=== PATIENT | male | born 1955 | race Caucasian/White ===

== ENCOUNTER 2023-11-22 06:39 | Emergency (ER) | payer MEDICARE, OTHER, SELFPAY ==
[2023-11-22 06:45] VITALS: BP 135/68
[2023-11-22] MEDS: ZOFRAN 4 MG IV (07:13)
[2023-11-22] MEDS: TORADOL 15 MG IV (07:13)
[2023-11-22] MEDS: NSS 500 IV (07:13)
[2023-11-22 07:26] LABS: Urine Albumin Trace (Neg - Trace); Urine Bilirubin 1+ (Negative); Urine Character Clear (Clear); Urine Color Yellow; Urine Glucose 2+ (Negative); Urine Ketone Trace (Negative); Urine Leukocyte Trace (Negative); Urine Nitrite Negative (Negative); Urine Occult Blood 2+ (Negative); Urine Urobilinogen Negative (Neg - 1+)
--- NOTE | 2023-11-22 07:26 | ED.GENMED ---
History of Present Illness
General
Chief Complaint: Flank Pain
Source: patient
Exam Limitations: none
Time Seen by Provider: 11/22/23 06:57
Travel History
Have you had any contact with someone who has COVID-19?: No
Do you have any symptoms of coronavirus? Fever > 100 degrees, chills, cough, shortness of breath, sore throat, loss of taste or smell, muscle aches, or headache?: No
History of Present Illness
History of Present Illness:
24 hours of right flank pain. History of kidney stones. Took Tylenol last evening. Some nausea. No fever. Symptoms are moderate in nature.
Past History
Past History
ED Past Medical History: HTN, Hypercholesterolemia, Other (DJD of the knees), Other (Kidney stone) and Other (Polycycthemia)
ED Past Surgical History: Orthopedic (Bilateral knees), Urological (Lithotripsy) and Other (Umbilical hernia)
Social History
Tobacco: Non-smoker
Alcohol: Occasional
Drug: None
Personal:
Living: with family
Employment: Employed
Family History
Family History: Other (Noncontributory)
Phy Exam
Physical Exam
Physical Exam:
GENERAL: Alert and oriented in no apparent distress
EYE: Orbits normal.
NECK: Supple
CARDIAC: Regular rate and rhythm without any obvious murmurs.
LUNGS: Clear breath sounds,normal
ABDOMEN: Soft, without focal tenderness or distention. No CVA tenderness
NEUROLOGICAL: Alert and oriented , grossly non-focal
SKIN: Warm and dry, no rash or lesion, no discoloration, skin intact.
MUSCULOSKELETAL: No edema,no deformity.Good color
PSYCH: Normal and appropriate interaction.
Course
Orders/Labs/Results
Orders:
Orders
11/22/23 07:04
IV Insert/Care/Rem.- Treatment PRN
0.9% Sodium Chloride 500 ml [Nss] 500 ml IV BOLUS
Ketorolac [Toradol] 15 mg IV NOW STA
Ondansetron Injectable [Zofran] 4 mg IV NOW STA
Pulse Ox/cont/shift [RESP] Stat
Quantity: 1
11/22/23 07:05
CT Abd/pel Without Iv Or Oral Urgent
Comment:
Reason For Exam: Right flank pain
11/22/23 07:10
Basic Metabolic Panel Urgent
Complete Blood Count/With Diff Urgent
Urinalysis Reflex To Culture Urgent
Date Specimen was Collected: 11/22/23
Time Specimen was Collected: 06:52
Urine Microscopic Reflex Cult Urgent
11/22/23 07:18
Ondansetron Injectable [Zofran] 4 mg .ROUTE .STK-MED ONE
11/22/23 07:19
Ketorolac [Toradol] 15 mg .ROUTE .STK-MED ONE
11/22/23 08:00
HYDROmorphone [Dilaudid] 0.5 mg IV NOW STA
11/22/23 09:32
Cefdinir [Omnicef] 300 mg PO NOW STA
Abnormal Lab Results
11/22/23
07:10
WBC 14.0 H 10^3/uL
(4.8-10.8)
Hgb 11.9 L g/dL
(13.0-18.0)
Hct 37.9 L %
(39.0-52.0)
MCV 65.3 L fL
(80.0-94.0)
MCH 20.5 L pg
(27.0-31.0)
MCHC 31.4 L g/dL
(33.0-37.0)
RDW 20.1 H %
(11.5-14.5)
Abs Immat Gran (auto) 0.1 H 10^3/uL
(0-0.05)
Absolute Neuts (auto) 12.0 H 10^3/uL
(1.4-6.5)
Absolute Lymphs (auto) 0.7 L 10^3/uL
(1.2-3.4)
Absolute Monos (auto) 1.1 H 10^3/uL
(0.1-0.6)
Immature Gran % 0.7 H %
(0-0.5)
Neutrophils % 86.1 H %
(42.2-75.2)
Lymphocytes % 4.8 L %
(20.5-51.1)
Sodium 134 L mmol/L
(135-145)
BUN 33 H mg/dl
(9-20)
Glucose 207 H mg/dl
(70-99)
Urine Ketones Trace A
(Negative)
Ur Occult Blood Reflex 2+ A
(Negative)
Urine Bilirubin 1+ A
(Negative)
Leukocyte Esterase Rfl Trace A
(Negative)
Urine RBC 11-15 A /HPF
(0-2)
Urine Bacteria (Reflex) Few A
(Negative)
Urine Glucose 2+ A
(Negative)
11/22/23 07:10
11/22/23 07:10
Vital Signs
Initial and Last Documented VS:
Initial Vital Signs
Temp Pulse Resp BP Pulse Ox
97.9 F 63 24 135/68 98
11/22/23 06:45 11/22/23 06:45 11/22/23 06:45 11/22/23 06:45 11/22/23 06:45
Last Documented Vital Signs
Temp Pulse Resp BP Pulse Ox
97.9 F 63 24 135/68 98
11/22/23 06:45 11/22/23 06:45 11/22/23 06:45 11/22/23 06:45 11/22/23 06:45
MDM/Problems Addressed
Differential Diagnosis Includes:
History and exam consistent with a kidney stone workup in progress including labs CT. Pain management.
*Radiology
Radiology exam reviewed: radiology read reviewed (6 mm and 7 mm stone with mild hydronephrosis distal right UVJ)
*Pulse Oximetry
Patient hypoxic: no
*Critical Care Note
Total Time (30-74mins, 75-104mins- exclusive of procedures): Not Applicable
Data Reviewed
Review of Other/Old Records Reveals: Labs and Records
Update Note
Update Note:
Patient with a leukocytosis. Likely reactive. No infectious symptoms. No fever or chills. Urinalysis likely negative. Discussed with urology and reports labs sent to urology. Offered admission for stroke retrieval this evening but also felt
reasonable for outpatient management. Patient would prefer outpatient management because of a disabled son.
ED Attending Note
-
Portions of this chart may have been created with voice recognition software.� Occasional wrong word or��sound alike� substitutions may have occurred due to the inherent limitations of voice recognition software.
Discharge Plan
Departure
Patient Disposition: Home (Routine Discharge)
Date of Disposition: 11/22/23
Time of Disposition: 09:58
Patient with high blood pressure during this ER visit?: Yes
Discharge Problem:
Obstructing kidney stone
Instructions: Kidney Stones (DC), BLOOD PRESSURE
Prescriptions:
New
hydrocodone-acetaminophen 5-325 mg tablet
1 tab PO Q6H PRN (Reason: Pain) Qty: 14 0RF
tamsulosin [Flomax] 0.4 mg capsule
0.4 mg PO DAILY Qty: 14 0RF
cefdinir 300 mg capsule
300 mg PO BID 7 Days Qty: 14 0RF
No Action
atorvastatin 40 MG tablet
40 mg PO QPM
amlodipine 5 MG tablet
5 mg PO DAILY
ramipril 10 MG capsule
10 mg PO DAILY
aspirin 81 MG tablet,delayed release (DR/EC)
81 mg PO DAILY
metformin 500 MG tablet
1,000 mg PO BID
hydrocodone-acetaminophen 1 EACH tablet
1 ea PO QIDPRN PRN (Reason: pain) Qty: 5 0RF
ketorolac 10 MG tablet
10 mg PO QIDPRN PRN (Reason: flank pain) Qty: 12 0RF
tamsulosin 0.4 MG capsule
0.4 mg PO DAILY Qty: 7 0RF
ondansetron 4 MG tablet,disintegrating
4 mg PO QIDPRN PRN (Reason: nausea/vomiting) Qty: 20 0RF
polyethylene glycol 3350 17 GRAMS powder in packet
17 grams PO DAILY Qty: 30 0RF
docusate sodium 100 MG capsule
100 mg PO BID Qty: 14 0RF
cefuroxime axetil 500 MG tablet
500 mg PO BID Qty: 8 0RF
tamsulosin [Flomax] 0.4 mg capsule
0.4 mg PO DAILY Qty: 10 0RF
ibuprofen 600 mg tablet
600 mg PO Q6H Qty: 30 0RF
oxycodone 5 mg tablet
5 mg PO Q8H PRN (Reason: pain) Qty: 8 0RF
Referrals:
Haseeb Vincent MD [Family Provider] -
Kelvin Louie MD [Active] - Follow up in 5-7 days
Activity Restrictions/Additional Instructions:
Call the urologist for close follow-up
Advil or Motrin for pain
The stronger pain medication was sent to your pharmacy along with the other medication
Interventions
Interventions:
*Risk Screen - Suicide Last Done: 11/22/23 06:45
*General Assessment Last Done: 11/22/23 07:04
*Neglect/Abuse Screening Last Done: 11/22/23 06:45
ED- Fall Risk Assessment Last Done: 11/22/23 07:04
*ED COVID-19 Vaccine History Last Done: 11/22/23 06:45
MO-Czlgte-Beswsisqyf Assessment Last Done: 11/22/23 07:04
ED-Male Genitourinary Assessment Last Done: 11/22/23 07:04
[2023-11-22 07:38] LABS: % Basophils 0.4 % (0-2); % Eosinophils 0.4 % (0-6); % Immature Granulocytes 0.7 % (0-0.5); % Lymphocytes 4.8 % (20.5-51.1); % Monocytes 7.6 % (1.7-9.3); % Neutrophils 86.1 % (42.2-75.2); Absolute Basophils 0.1 10^3/uL (0-0.2); Absolute Eosinophils 0.1 10^3/uL (0-0.7); Absolute Immature Granulocytes 0.1 10^3/uL (0-0.05); Absolute Lymphocytes 0.7 10^3/uL (1.2-3.4); Absolute Monocytes 1.1 10^3/uL (0.1-0.6); Hematocrit 37.9 % (39.0-52.0); Hemoglobin 11.9 g/dL (13.0-18.0); Mean Corp Hgb Conc. 31.4 g/dL (33.0-37.0); Mean Corpuscular Hgb 20.5 pg (27.0-31.0); Mean Corpuscular Volume 65.3 fL (80.0-94.0); Mean Platelet Volume 10.2 fL (7.4-10.4); Nucleated Red Blood Cells % 0 % (-); Platelet Count 354 10^3/uL (130-400); Red Cell Dist. Width 20.1 % (11.5-14.5)
[2023-11-22 07:39] LABS: Blood Urea Nitrogen 33 mg/dl (9-20); Calcium 9.4 mg/dl (8.4-10.2); Carbon Dioxide 22 mmol/L (22-30); Chloride 102 mmol/L (98-107); Glucose 207 mg/dl (70-99); Potassium 4.3 mmol/L (3.5-5.1); Sodium 134 mmol/L (135-145); eGFR > 60.00
[2023-11-22 07:54] LABS: Urine Amorphous Seen; Urine Mucus Many
[2023-11-22 07:57] LABS: Urine Bacteria Few (Negative)
[2023-11-22] MEDS: DILAUDID 0.5 MG IV (08:05)
[2023-11-22] MEDS: OMNICEF 300 MG PO (09:51)
[2023-11-22 10:46] VITALS: BP 137/77
== END 2023-11-22 10:50 | disposition home or self-care (01) ==
LOC: EMR 06:39
PROVIDERS: EMERGENCY PHYSICIAN Emergency Medicine; FAMILY PHYSICIAN Internal Medicine
DX: N13.2 Hydronephrosis with renal and ureteral calculous obstruction (principal); I10 Essential (primary) hypertension; Z87.442 Personal history of urinary calculi
CPT/HCPCS: 99284; 96374; 96375 ×2; 96361 ×2; 74176; 80048; 81003; 81015; 85025

== ENCOUNTER → 2023-12-19 09:55 | Outpatient (REF) | payer MEDICARE, OTHER, SELFPAY | LOC: RAD 09:55 | PROVIDERS: ATTENDING PHYSICIAN Specialist; FAMILY PHYSICIAN Internal Medicine | DX: N50.0 Atrophy of testis (principal); N20.0 Calculus of kidney | CPT/HCPCS: 74018 ==

== ENCOUNTER → 2023-12-27 11:59 | Outpatient (REF) | payer MEDICARE, OTHER, SELFPAY ==
[2023-12-27 12:31] LABS: % Basophils 0.4 % (0-2); % Eosinophils 2.1 % (0-6); % Immature Granulocytes 0.1 % (0-0.5); % Lymphocytes 20.3 % (20.5-51.1); % Monocytes 14.6 % (1.7-9.3); % Neutrophils 62.5 % (42.2-75.2); Absolute Eosinophils 0.2 10^3/uL (0-0.7); Absolute Lymphocytes 1.6 10^3/uL (1.2-3.4); Absolute Monocytes 1.2 10^3/uL (0.1-0.6); Hematocrit 40.8 % (39.0-52.0); Hemoglobin 12.5 g/dL (13.0-18.0); Mean Corp Hgb Conc. 30.6 g/dL (33.0-37.0); Mean Corpuscular Hgb 19.9 pg (27.0-31.0); Mean Corpuscular Volume 65.1 fL (80.0-94.0); Mean Platelet Volume 9.4 fL (7.4-10.4); Platelet Count 362 10^3/uL (130-400); Red Blood Cell Count 6.27 10^6/uL (4.70-6.10); Red Cell Dist. Width 20.3 % (11.5-14.5)
== END ==
LOC: OIDL 11:59
PROVIDERS: ATTENDING PHYSICIAN Internal Medicine Hematology & Oncology; FAMILY PHYSICIAN Internal Medicine
DX: D45 Polycythemia vera (principal)
CPT/HCPCS: 36415; 85025

== ENCOUNTER 2024-01-10 06:26 | Day surgery (SDC) | payer MEDICARE, OTHER, SELFPAY ==
[2024-01-03 06:52] VITALS: BMI 32.4
[2024-01-10] VITALS (10 sets, daily range): BP systolic 123–144; BP diastolic 70–81; BMI 32.4
[2024-01-10 10:09] LABS: Glucose - Point of Care 125 mg/dl (70-99)
[2024-01-10 12:32] LABS: Glucose - Point of Care 95 mg/dl (70-99)
[2024-01-10 13:43] LABS: Glucose - Point of Care 107 mg/dl (70-99)
[2024-01-10] MEDS: Pyridium 200 MG PO (14:20)
[2024-01-14 16:43] LABS: Stone Analysis Mass 111 mg
== END 2024-01-10 15:13 | disposition home or self-care (01) ==
LOC: SDS 06:26
PROVIDERS: ATTENDING PHYSICIAN Specialist
DX: N20.2 Calculus of kidney with calculus of ureter (principal); Q63.0 Accessory kidney
CPT/HCPCS: 52356; 74420; 76000; 82365; 82962; A4300; C2617

== ENCOUNTER 2024-01-18 10:23 | Inpatient (IN) | payer MEDICARE, OTHER, SELFPAY ==
[2024-01-18] VITALS (9 sets, daily range): BP systolic 106–146; BP diastolic 63–82; BMI 29.0
--- NOTE | 2024-01-18 06:42 | ED.GENMED ---
History of Present Illness
General
Chief Complaint: Musculo-Skeletal Complaint
Time Seen by Provider: 01/18/24 06:13
Travel History
Have you had any contact with someone who has COVID-19?: No
Do you have any symptoms of coronavirus? Fever > 100 degrees, chills, cough, shortness of breath, sore throat, loss of taste or smell, muscle aches, or headache?: No
History of Present Illness
History of Present Illness:
HPI: Patient came in by ambulance after a fall. Recently he has been having vomiting and diarrhea. Approximately a month ago Dr. Ybarra placed a right ureteral stent. After the fall that occurred about 20 hours ago, he has been having great
difficulty walking and could barely move sit to the point that he had to come in by ambulance. He also reports a headache but adamantly denies any head trauma.
EXAM:
GENERAL: Well appearing in no distress
CERVICAL SPINE: No midline c-spine tenderness with excellent AROM
HEAD: No evidence of craniofacial trauma
CHEST: No chest wall tenderness, normal heart sounds but mildly tachycardic
LUNGS: Equal lung sounds, no respiratory distress
ABDOMEN: No abdominal tenderness, no peritoneal signs
EXTREMITIES: Markedly decreased active range of motion at the right hip, positive straight leg raise on the right
NEURO: Excellent strength all extremities, appropriate mental status, normal speech/language
TIME OF INITIAL ENCOUNTER: 6:40 AM
NUMBER AND COMPLEXITY OF PROBLEMS ADDRESSED AT THE ENCOUNTER
� Chronic conditions affecting care: Diabetes, spinal stenosis, sciatica, high blood pressure, hyperlipidemia
� Acute Exacerbation and/or Progression of Chronic Illness: This is an acute problem
� Differential Diagnosis includes: Exacerbation of sciatica, hip fracture, pelvis fracture, dehydration, GEETA
AMOUNT AND/OR COMPLEXITY OF DATA TO BE REVIEWED AND ANALYZED
� I performed an independent evaluation of and my interpretation is:
EKG:
CT: CT imaging personally reviewed and suggest more of a chronic fracture however the patient denies any history of fracture
X-rays: I personally viewed x-rays of the right hip and see no evidence of fracture�radiologist agrees
Laboratory Studies: White count is 22.3, 12.8, chemistries relatively unremarkable however BUN to creatinine ratio was elevated; UTI suggests infection however recent stent was placed
Other:
� Review of other/old records: I reviewed records, the patient had a stent placed by Dr. Ybarra 01/10/2024
� Clinical information was obtained by an independent historian: EMS notes
� Prescriptions/Medications Considered but not given:
� Further testing considered but not performed:
RISK OF COMPLICATIONS AND/OR MORBIDITY OR MORTALITY OF PATIENT MANAGEMENT
� Social determinants of health affecting care: Lives at home
� Discussion with other providers: Physical therapy for evaluation; the patient has a general ill appearance and I notified Dr. Ybarra; hospitalist for admission as I do have some concern for UTI/sepsis along with intractable
pain from a possible lumbar spine fracture
� Escalation of care including admission/observation vs risk of discharge considered: The patient has been having nausea and vomiting and diarrhea and is borderline cardiac here. He appears uncomfortable. Will start IV and give
narcotic analgesia as well as fluids and Zofran. I have ordered Tylenol for his headache but he denies any head trauma. Plain film imaging suggested acute fracture at L1 however CT imaging suggest more of a chronic appearing fracture. However,
the patient states that he has not had an acute fracture in the past. Given the leukocytosis with ureteral stent, urinalysis has been ordered.
Past History
Past History
ED Past Medical History: HTN, Hypercholesterolemia, Other (DJD of the knees), Other (Kidney stone) and Other (Polycycthemia)
ED Past Surgical History: Orthopedic (Bilateral knees), Urological (Lithotripsy) and Other (Umbilical hernia)
Social History
Tobacco: Non-smoker
Alcohol: Occasional
Drug: None
Personal:
Living: with family
Employment: Employed
Family History
Family History: Other (Noncontributory)
Phy Exam
Physical Exam
Physical Exam:
See HPI
Course
Orders/Labs/Results
Orders:
Orders
01/18/24 06:04
CR Hip - RT w/wo Pel 2-3 Vw* Urgent
Comment:
Reason For Exam: fall
Include a pelvis x-ray?: Yes
Lumbar Spine, 2 or 3 View [CR Lumbar Spine 2 Or 3 Views] Urgent
Comment:
Reason For Exam: fall
01/18/24 06:40
0.9% Sodium Chloride 1000 ml [Nss] 1,000 ml IV BOLUS
HYDROmorphone [Dilaudid] 0.5 mg IV NOW STA
Ondansetron Injectable [Zofran] 4 mg IV NOW STA
01/18/24 06:41
Acetaminophen [Tylenol] 1,000 mg PO NOW STA
01/18/24 07:18
Complete Blood Count/With Diff Urgent
01/18/24 07:19
Comprehensive Metabolic Panel Urgent
Lipase Urgent
01/18/24 07:29
CT Lumbar Spine W/o Iv Contras Urgent
Comment:
Reason For Exam: eval L1 fx
01/18/24 08:29
PT Consult [Pt Eval And Treat] Urgent
Activity Level: Ambulate
01/18/24 09:01
Urinalysis Reflex To Culture Urgent
Date Specimen was Collected: 01/18/24
Time Specimen was Collected: 09:00
Urine Microscopic Reflex Cult Urgent
Urine Culture Urgent
LAVERNE Source: U
Specimen Description:
Obtained by: Random
Date Specimen was Collected: 01/18/24
Time Specimen was Collected: 09:00
01/18/24 09:53
CefTRIAXone [Rocephin] 1,000 mg IV NOW STA
01/18/24 09:59
Admit/Transfer Patient As Directed
Co-Sign Provider:
Level of Care: Inpatient admission
Assign to:: Medical/Surgical
Physician / Group: Hospitalist
Diagnosis: UTI
Reason for Hospitalization: .
Expected length of stay greater than two midnights?: Yes
ELOS- Estimated Length of Stay in days: 3
I certify the patient meets the requirements for IP care: Yes
01/18/24 10:00
Code Status As Directed
Resuscitation Status: Full Code
01/18/24 10:25
Lactic Acid Q4H
Comment: CANCEL 2nd LACTIC ACID IF 1st LACTIC ACID IS LESS THAN 2
Blood Culture Q30M
LAVERNE Source: Blood/Venous
Specimen Description:
Blood Culture Q30M
LAVERNE Source: Blood/Venous
Specimen Description:
01/18/24 11:53
Consult Urology [UROLOGY CONSULT] Routine
Consulting Provider: Suhas Griffin Jr.
Was physician already notified: Yes
Comment: UTI
DX Deep Vein Thrombosis Video Routine
01/18/24 14:00
Lactic Acid Q4H
Comment: CANCEL 2nd LACTIC ACID IF 1st LACTIC ACID IS LESS THAN 2
01/18/24 18:00
Aspirin Low Dose EC [Aspir Low (Enteric Coated)] 81 mg PO QPM
01/18/24 20:00
Heparin 5,000 units SC Q12
Abnormal Lab Results
01/18/24 01/18/24 01/18/24
07:18 07:19 09:01
WBC 22.3 H 10^3/uL
(4.8-10.8)
RBC 6.38 H 10^6/uL
(4.70-6.10)
Hgb 12.8 L g/dL
(13.0-18.0)
MCV 63.3 L fL
(80.0-94.0)
MCH 20.1 L pg
(27.0-31.0)
MCHC 31.7 L g/dL
(33.0-37.0)
RDW 21.4 H %
(11.5-14.5)
Abs Immat Gran (auto) 0.2 H 10^3/uL
(0-0.05)
Absolute Neuts (auto) 19.5 H 10^3/uL
(1.4-6.5)
Absolute Lymphs (auto) 0.6 L 10^3/uL
(1.2-3.4)
Absolute Monos (auto) 2.0 H 10^3/uL
(0.1-0.6)
Immature Gran % 0.8 H %
(0-0.5)
Neutrophils % 87.4 H %
(42.2-75.2)
Lymphocytes % 2.5 L %
(20.5-51.1)
BUN 32 H mg/dl
(9-20)
Glucose 184 H mg/dl
(70-99)
AST 147 H U/L
(17-59)
ALT 53 H U/L
(0-50)
Total Protein 6.2 L g/dl
(6.3-8.2)
Urine Ketones Trace A
(Negative)
Ur Occult Blood Reflex 4+ A
(Negative)
Urine Bilirubin 1+ A
(Negative)
Leukocyte Esterase Rfl 2+ A
(Negative)
Urine RBC 40-50 A /HPF
(0-2)
Urine WBC (Reflex) 40-50 A /HPF
(0-5)
Urine Bacteria (Reflex) Moderate A
(Negative)
Urine Albumin (Reflex) 1+ A
(Neg - Trace)
01/18/24 07:18
01/18/24 07:19
Vital Signs
Initial and Last Documented VS:
Initial Vital Signs
Temp Pulse Resp BP Pulse Ox
99.8 F 110 18 132/82 99
01/18/24 05:57 01/18/24 05:57 01/18/24 05:57 01/18/24 05:57 01/18/24 05:57
Last Documented Vital Signs
Temp Pulse Resp BP Pulse Ox
100.2 F 113 18 111/64 94
01/18/24 12:02 01/18/24 12:02 01/18/24 12:02 01/18/24 12:02 01/18/24 12:02
*Critical Care Note
Total Time (30-74mins, 75-104mins- exclusive of procedures): Not Applicable
ED Attending Note
-
Portions of this chart may have been created with voice recognition software.� Occasional wrong word or��sound alike� substitutions may have occurred due to the inherent limitations of voice recognition software.
Discharge Plan
Departure
Patient Disposition: Admit
Date of Disposition: 01/18/24
Time of Disposition: 10:00
Presentation/result/management discussed w/ accepting MD/DO: Hospitalist
Discharge Problem:
Intractable back pain
Interventions
Interventions:
*Risk Screen - Suicide Last Done: 01/18/24 05:57
*General Assessment Last Done: 01/18/24 05:57
*Neglect/Abuse Screening Last Done: 01/18/24 05:57
ED- Fall Risk Assessment Last Done: 01/18/24 07:30
*ED COVID-19 Vaccine History Last Done: 01/18/24 05:57
*Nursing Disposition Last Done: 01/18/24 11:25
ED-Musculoskeletal Assessment Last Done: 01/18/24 07:30
Discharge Date and Time
Discharge Date/Time: 01/18/24 11:26
[2024-01-18] MEDS: DILAUDID 0.5 MG IV (07:19)
[2024-01-18] MEDS: ZOFRAN 4 MG IV (07:19)
[2024-01-18] MEDS: NSS 1000 IV ×3 (07:20→21:24)
[2024-01-18] MEDS: TYLENOL 1000 MG PO ×3 (07:22→21:25)
[2024-01-18 07:30] LABS: % Basophils 0.3 % (0-2); % Immature Granulocytes 0.8 % (0-0.5); % Lymphocytes 2.5 % (20.5-51.1); % Neutrophils 87.4 % (42.2-75.2); Absolute Basophils 0.1 10^3/uL (0-0.2); Absolute Immature Granulocytes 0.2 10^3/uL (0-0.05); Absolute Lymphocytes 0.6 10^3/uL (1.2-3.4); Absolute Neutrophils 19.5 10^3/uL (1.4-6.5); Hematocrit 40.4 % (39.0-52.0); Hemoglobin 12.8 g/dL (13.0-18.0); Mean Corp Hgb Conc. 31.7 g/dL (33.0-37.0); Mean Corpuscular Hgb 20.1 pg (27.0-31.0); Mean Corpuscular Volume 63.3 fL (80.0-94.0); Mean Platelet Volume 9.6 fL (7.4-10.4); Nucleated Red Blood Cells % 0 % (-); Platelet Count 290 10^3/uL (130-400); Red Blood Cell Count 6.38 10^6/uL (4.70-6.10); Red Cell Dist. Width 21.4 % (11.5-14.5); White Blood Cell Count 22.3 10^3/uL (4.8-10.8)
[2024-01-18 07:42] LABS: ALT (SGPT) 53 U/L (0-50); AST (SGOT) 147 U/L (17-59); Alkaline Phosphatase 80 U/L (38-126); Blood Urea Nitrogen 32 mg/dl (9-20); Calcium 9.2 mg/dl (8.4-10.2); Carbon Dioxide 26 mmol/L (22-30); Chloride 100 mmol/L (98-107); Estimated Creatinine Clearance 76 ml/min; Glucose 184 mg/dl (70-99); Lipase 34 U/L (23-300); Potassium 4.2 mmol/L (3.5-5.1); Sodium 136 mmol/L (135-145); Total Bilirubin 0.9 mg/dl (0.2-1.3); Total Protein 6.2 g/dl (6.3-8.2); eGFR > 60.00
[2024-01-18 09:20] LABS: Urine Albumin 1+ (Neg - Trace); Urine Bilirubin 1+ (Negative); Urine Character Slightly Cloudy (Clear); Urine Color Yellow; Urine Glucose Negative (Negative); Urine Ketone Trace (Negative); Urine Leukocyte 2+ (Negative); Urine Nitrite Negative (Negative); Urine Occult Blood 4+ (Negative); Urine Urobilinogen Negative (Neg - 1+)
[2024-01-18 09:29] LABS: Urine Mucus Many
[2024-01-18 09:31] LABS: Urine Amorphous Seen
[2024-01-18 09:33] LABS: Urine Red Blood Cell 40-50 /HPF (0-2)
[2024-01-18 09:34] LABS: Urine White Cell 40-50 /HPF (0-5)
[2024-01-18 09:35] LABS: Urine Bacteria Moderate (Negative)
--- NOTE | 2024-01-18 09:59 | HPS.HSE ---
Family Physician
-
Family Physician: Haseeb Vincent
Chief Complaint
-
Rigors and fever with muscle spasm for 1 day during
History of Present Illness
68 years old male came from home. Patient started to have back pain with muscle spasm in addition to fever and rigors at home. He describes his urine as Sunday. He went to his a primary care doctor and received a pneumonia vaccination since
vaccination, his condition deteriorated and started to have chills/rigors and severe muscle aches..
Patient had recent urological procedure. He had history of right ureteral stone status post right ureteroscopy, basket extraction and right double-J stent placement by Dr. Ybarra on 01/09. Patient received 5 days course of Bactrim. He noticed
difficulty urination but no hematuria.
In the emergency room, he had leukocytosis, was found to have mobility problems. He complained of lower back pain and scan of the lumbar spine showed chronic compression fraction of T12/L1. Creatinine 1.1. Lactic acid 1.9. Temperature 99.0.
Bladder scan showed volume around 459 cc.
Medical History
Past Medical History
Past Medical History: Reports Other (Hypertension, kidney stone, degenerative disc disease, type 2 diabetes, hyperlipidemia.)
Past Surgical History: Reports Other (No recent major surgery)
Social History
Tobacco: Non-smoker
Alcohol: None
Drug: None
Personal:
Living: With Family
Employment: Retired
Family History
Family History: Not pertinent
Allergies / Home Medications
Allergies reflects when Allergies were last updated in [employer].
Home Medications with original date entered in [employer]
Allergy/Medication List:
Allergies
Allergy/AdvReac Type Severity Reaction Status Date / Time
No Known Allergies Allergy Verified 01/10/24 10:22
Home Medications
atorvastatin 40 mg tablet 40 mg PO DAILY High cholesterol 04/02/17
ramipril 10 mg capsule 10 mg PO DAILY Blood pressure 04/02/17
aspirin 81 mg tablet,delayed release 81 mg PO DAILY Blood clot prevention/tx 05/23/20
hydrochlorothiazide 25 mg tablet 25 mg PO DAILY 01/04/24
multivitamin 1 tab PO HS 01/04/24
metformin 1,000 mg tablet 1,000 mg PO BIDWMEAL 01/18/24
naproxen sodium 220 mg tablet (Aleve) 220 mg PO BID 01/18/24
tamsulosin 0.4 mg capsule 0.4 mg PO DAILY 01/18/24
Review of Systems
-
History Source: Patient
A 12 point ROS was completed and negative except as noted: Yes
Constitutional: Reports Fever and Chills
EENT: Denies Sore Throat
Respiratory: Denies Cough
Cardiac: Denies Chest Pain
Abdomen/GI: Denies Abdominal Pain
: Reports Difficulty Voiding
Musculoskeletal: Reports Joint Pain (Lower back radiating to the legs)
Neurological: Denies Dizzy or Numbness
Endocrine: Denies Temp Intolerance
Hematologic/Lymphatic: Denies Bruising
Psych: Denies Panic Disorder
Physical Exam
Vital Signs
Vital Signs
Temp Pulse Resp BP Pulse Ox
99.0 F 84 18 110/78 95
01/18/24 08:44 01/18/24 08:44 01/18/24 08:44 01/18/24 08:44 01/18/24 08:44
Physical Exam
General: Pain (Lower back pain going to both legs)
HEENT: Moist mucous membranes and Atraumatic
Respiratory: Clear and Decreased Breath Sounds; No Wheezes
Cardiac: S1/S2
GI: Soft, Non Tender and Distended
Genito-urinary: Turbid Urine; No Bloody Urine
Musculoskeletal: No Clubbing, No Cyanosis and No Edema
Skin: Warm; No Jaundice
Neuro: AO x 3 and Nonfocal/grossly intact
Psych: Calm and Intact Judgment/Insight
Laboratory Results
-
01/18/24 07:18
01/18/24 07:19
Laboratory Results
Total Bilirubin 0.9 mg/dl (0.2-1.3) 01/18/24 07:19
AST 147 U/L (17-59) H 01/18/24 07:19
ALT 53 U/L (0-50) H 01/18/24 07:19
Alkaline Phosphatase 80 U/L (38-126) 01/18/24 07:19
Lipase 34 U/L (23-300) 01/18/24 07:19
Impression/Plan
-
68 years old male presented with fever and was found to have urine tract infection, recent vaccination, lower back pain.
# Sepsis/present on admission, source consistent urinary tract infection
Combination of tachycardia, leukocytosis, mild temperature, rigors, cloudy urine with difficulty urination
No hypotension
Admit the patient to telemetry.
Continue with IV fluid
Intravenous broad spectrum antibiotic
Urine and blood culture
Bladder scan, avoid retention
Monitor temperature curve and WBC
No hydronephrosis seen on CAT scan
Recent stone extraction, right ureteroscopy, double-J stent right ureter by Dr. Ybarra 01/10/24
Recent vaccination for pneumonia
Continue with Tylenol 3 times daily and as needed Dilaudid
Appreciate urology input
# Severe lower back pain with radiculopathy. CAT Scan showed chronic T12/L1 compression deformities/multilevel degenerative changes of lumbar spine
Fever and UTI are contributing to discomfort
Will give Tylenol [id number], as needed Dilaudid
Continue with PT/OT as tolerated
# Recent pneumonia vaccination with systemic response
Continue supportive care. Tylenol
# History of type 2 diabetes.
Avoid hypoglycemia
Diabetic diet
Insulin sliding scale
# Primary hypertension. Avoid hypotension. Monitor blood pressure
#Mild transaminitis. No abdominal tenderness on examination. Likely secondary to ongoing infection. Will monitor
# DVT prophylaxis
Total time spent to see the patient, examine the patient on the floor, review data and lab results, discuss treatment plan with patient, ER doctor, urology and nursing staff around 75 minutes
[2024-01-18] MEDS: ROCEPHIN 1000 MG IV (10:24)
[2024-01-18] MEDS: DILAUDID 1 MG IV ×4 (10:37→18:34)
[2024-01-18 10:46] LABS: Lactic Acid 1.9 mmol/L (0.7-2.0)
[2024-01-18] MEDS: TORADOL 30 MG IV (11:17)
[2024-01-18] MEDS: NSS 500 IV (11:24)
[2024-01-18 12:16] LABS: Glucose - Point of Care 167 mg/dl (70-99)
[2024-01-18] MEDS: MAXIPIME 1000 MG IV ×2 (12:21→23:12)
[2024-01-18] MEDS: STERILE WATER FOR INJECTION 10 ML IV ×2 (12:21→23:12)
--- NOTE | 2024-01-18 12:23 | W.PN.URO.CBU ---
Today's Communication / Plan
-
place root
Assessment / Plan
-
s/p stenting aftr laser lithotripsy felt well but then fell during eval of back pain pt without dysuria frequny nor colic had 24 k wbc then on admit spikd feve to 102 an bladder scan 40cc will place root start iv empric abs and await cxs
stnt to b removed once stable or if does not respond to approproar-te av]bs discussed with pt and revoewed ct scan and labs
Diagnosis
-
Date of Service: January 18, 2024
-
Patient Diagnosis:presumed urosepsis in pt s/p lasr stone removal with stnt now 102 22.5 wbc had acute retentiondespite fomax 460cc drained from bladder
Post Op Day:
Subjective
-
feeling beter some bladder spasm
Objective
-
Vital Signs
Temp Pulse Resp BP Pulse Ox
100.2 F 113 18 111/64 94
01/18/24 12:02 01/18/24 12:02 01/18/24 12:02 01/18/24 12:02 01/18/24 12:02
Laboratory Results
01/18/24 07:18
01/18/24 07:19
Review of Systems
-
Constitutional: Fever
: Dysuria and Frequency
Physical Exam
-
General - well developed, well nourished, no acute distress
Chest - clear bilaterally
Abdomen - soft, non-tender, positive bowel sounds, no CVAT, no incisional pain or distention
Genitalia - normal
Rectal - normal
Skin - warm & dry with no rash
Neuro - AOx3, no motor deficits
Extremities - no clubbing, no cyanosis, no edema
Care Review
Data Reviewed
Discussed with: Nursing, Family and Other ([facility])
CT Scan: Image Pers Reviewed
[2024-01-18] MEDS: NOVOLOG FLEXPEN-MODERATE RESISTANCE 1 UNITS SC (12:27)
--- NOTE | 2024-01-18 13:17 | PTCARENOTE ---
Patient admitted to room 402-01 from ER. Patient given dilaudid IV as ordered for pain which he rates a 9/10 on pain scale in both hips and bilateral lower back that radiates to legs. Low grade fever - was given Tylenol in ER. Patient diaphoretic.
Given ice bags for under arms. IVF started and antibiotic given. العلي catheter placed without difficulty for 50 mls of navarro clear urine. Educated on use of call huerta, television and bed controls. Reviewed plan of care with patient. Patient
verbalizes understanding of all teaching and denies questions at this time.
[2024-01-18] MEDS: FLEXERIL 2.5 MG PO (16:02)
--- NOTE | 2024-01-18 16:16 | PTCARENOTE ---
Patient with rigors. Rates pain 9/10 in bilateral hip areas. Dilauded given for pain. Tylenol given as ordered. Currently afebrile. Patient placed on telemetry as per Dr. Karimi. WBC today 22.3. Vancomycin and Flexaril added to medication regimen.
IVF maintained at 125 mls/ hour.
[2024-01-18] MEDS: VANCOCIN 540 MG IV (16:26)
[2024-01-18 16:44] LABS: Glucose - Point of Care 158 mg/dl (70-99)
[2024-01-18] MEDS: NOVOLOG FLEXPEN-MODERATE RESISTANCE SC (16:52)
[2024-01-18] MEDS: ASPIR LOW (ENTERIC COATED) 81 MG PO (17:14)
--- NOTE | 2024-01-18 19:27 | PHA.VAN.IN ---
Assessment
- Assessment
Renal Function: Appears elevated from baseline (Currently 1.1 Baseline~ 0.7)
Maximum Temperature: 102.3F
Concomitant Antimicrobials: Cefepime
AUC Dosing Plan
- Empiric Dosing
Initial / Loading Dose: Vanco 2,000mg
Maintenance Regimen: Vanco 1,250mg BID
Estimated AUC (mcg*h/mL): 521
Estimated Peak (mcg*h/mL): 30.6
Estimated Trough (mcg/ml): 14.6
Estimated Half Life (H): 10.3
- Monitoring
No levels ordered at this time: Consider level in the next few days
Pharmacokinetics Vancomycin I
- -
Patient Age: 68
Vancomycin Day #: 1
Indication: Genito-Urinary Tract (Kidney stent )
Requesting Provider: Dr. Karimi
Pertinent Antimicrobial Allergies:
NKA
Height / Weight:
Height 6 ft 3 in
Actual Weight 105.1 kg
- Vital Signs / Lab Results
Temp Pulse Resp BP Pulse Ox
98 F 104 18 106/64 93
01/18/24 19:07 01/18/24 19:07 01/18/24 19:07 01/18/24 19:07 01/18/24 19:07
Lab Results - Hematology
01/18/24
07:18
WBC 22.3 H
Lab Results - Chemistry
01/18/24
07:19
BUN 32 H
Creatinine 1.1
Estimated Creat Clear 76
Albumin 4.0
01/18/24 01/18/24
10:25 14:00
Lactic Acid 1.9 Cancelled
Lab Results - Urine
01/18/24
09:01
Urine Nitrite (Reflex) Negative
Leukocyte Esterase Rfl 2+ A
Urine WBC (Reflex) 40-50 A
Urine Bacteria (Reflex) Moderate A
[2024-01-18] MEDS: HEPARIN 5000 UNITS SC (19:52)
[2024-01-18 21:09] LABS: Glucose - Point of Care 148 mg/dl (70-99)
[2024-01-19 02:57] VITALS: BP 123/70
[2024-01-19] MEDS: VANCOCIN 275 MG IV ×2 (05:17→17:38)
[2024-01-19] MEDS: NSS 1000 IV ×2 (05:24→17:41)
[2024-01-19 07:04] LABS: Glucose - Point of Care 153 mg/dl (70-99)
[2024-01-19 07:10] VITALS: BP 117/71
[2024-01-19] MEDS: DILAUDID 1 MG IV ×3 (07:14→23:14)
[2024-01-19] MEDS: TYLENOL 1000 MG PO ×3 (07:14→17:28)
[2024-01-19] MEDS: HEPARIN 5000 UNITS SC ×2 (07:16→21:06)
[2024-01-19 07:23] LABS: Hematocrit 35.5 % (39.0-52.0); Mean Corpuscular Volume 64.4 fL (80.0-94.0); Mean Platelet Volume 10.3 fL (7.4-10.4); Platelet Count 230 10^3/uL (130-400); Red Blood Cell Count 5.51 10^6/uL (4.70-6.10); Red Cell Dist. Width 21.1 % (11.5-14.5); White Blood Cell Count 22.8 10^3/uL (4.8-10.8)
[2024-01-19 07:47] LABS: ALT (SGPT) 50 U/L (0-50); AST (SGOT) 99 U/L (17-59); Albumin 2.9 g/dl (3.5-5.0); Alkaline Phosphatase 77 U/L (38-126); Blood Urea Nitrogen 31 mg/dl (9-20); Carbon Dioxide 21 mmol/L (22-30); Chloride 104 mmol/L (98-107); Estimated Creatinine Clearance 104 ml/min; Glucose 135 mg/dl (70-99); Potassium 4.6 mmol/L (3.5-5.1); Sodium 134 mmol/L (135-145); Total Bilirubin 0.7 mg/dl (0.2-1.3); Total Protein 5.1 g/dl (6.3-8.2); eGFR > 60.00
--- NOTE | 2024-01-19 07:53 | W.PN.URO.CBU ---
Today's Communication / Plan
-
continue root/stent and iv antibx
Assessment / Plan
-
s/p ureteroscopy/laser litho and stent
readmit with fever
pt's prelim blood cx + for gram +- now on vanc
suspect pyelo from infected urine refluxing up stent due to retention
there was no hydro on ct- stent well positioned- so at this time no indication for exchange
continue vanc and give one dose of gent
await final cx results
continue supportive care
with pyelo- will likely take several days for improvement of clinical parameters- but will root closely and re-image if indicated
Diagnosis
-
Date of Service: January 19, 2024
-
Patient Diagnosis:
s/p ureteroscopy and stent
urinary retention
suspected pyelonephritis
Subjective
-
pt still feels fatigues, some mild lower right back pain
root in place
urine clear
still with intermittent fevers and elevated wbc
prelim blood cx gram + cocci
Objective
-
Vital Signs
Temp Pulse Resp BP Pulse Ox
101.6 F H 93 22 117/71 93
01/19/24 07:10 01/19/24 07:10 01/19/24 07:10 01/19/24 07:10 01/19/24 07:10
Intake and Output
01/18/24 01/19/24 01/20/24
06:59 06:59 06:59
Intake Total 4790 / 4790
Output Total 975 / 975
Balance 3815 / 3815
Intake:
Oral fluids 1440 / 1440
IV fluids (Total) 2350 / 2350
IV piggybacks 1000 / 1000
Output:
Urine, Root 975 / 975
Laboratory Results
01/19/24 06:49
01/19/24 06:49
Review of Systems
-
Constitutional: Fatigue
Respiratory: No Symptoms
Cardiac: No Symptoms
Abdomen/GI: No Symptoms
Physical Exam
-
General -no acute distress
Abdomen - soft, non-tender, positive bowel sounds, no CVAT
--- NOTE | 2024-01-19 07:57 | W.PN.HOSP.TC ---
Today's Communication/Plan
-
.
Assessment / Plan
Assessment / Plan
Physical Exam
General: pain in right flank with rigors.
HEENT: Moist mucous membranes and Atraumatic
Respiratory: Clear and Decreased Breath Sounds; No Wheezes
Cardiac: S1/S2
GI: Soft, Non Tender and Distended
Genito-urinary: Turbid Urine; No Bloody Urine
Musculoskeletal: No Clubbing, No Cyanosis and No Edema
Skin: Warm; No Jaundice
Neuro: AO x 3 and Nonfocal/grossly intact
Psych: Calm and Intact Judgment/Insight
68 years old male presented with fever and was found to have urine tract infection, recent vaccination, lower back pain.
# Sepsis/present on admission, UTI, right pyelonephritis related to recent stent
Combination of tachycardia, leukocytosis, high temperature, rigors, cloudy urine with difficulty urination
No hypotension
Patient is still having high fever, rigors with persistent leukocytosis
c/w IV Cefepime and IV Vancomycin
I d/w urology this morning if need an intervention for the stent , paln to c/w ABx for now since no hydronephrosis.
Tylenol for fever
Add Advil PRN for high fevers
c/w mild IVF
Appreciate urology input
# bacteremia
c/w IV Abx
Reculture today
Appreciate ID help
# Severe lower back pain with radiculopathy. CAT Scan showed chronic T12/L1 compression deformities/multilevel degenerative changes of lumbar spine
Fever and UTI are contributing to discomfort
c/w Tylenol [id number], as needed Dilaudid
Continue with PT/OT as tolerated
# Recent pneumonia vaccination with systemic response
Continue supportive care. Tylenol
# History of type 2 diabetes.
Avoid hypoglycemia
Diabetic diet
Insulin sliding scale
# Primary hypertension. Avoid hypotension. Monitor blood pressure
#Mild transaminitis. Coming down No abdominal tenderness on examination. Likely secondary to ongoing infection. Will monitor
# Hyponatremia, mild
# DVT prophylaxis, SQ heparin
Total time spent to see the patient, examine the patient on the floor, review data and lab results, discuss treatment plan with patient, urology and nursing staff around 55 minutes
Anticipated Discharge: > 48 hours
Subjective/Interval History
-
Date of Service: January 19, 2024
Still having right flank pain with rigors
Objective Data
-
Labs:
Laboratory Results
01/19/24
06:49
WBC 22.8 H
Hgb 11.0 L
Hct 35.5 L
Plt Count 230 D
Sodium 134 L
Potassium 4.6
Chloride 104
Carbon Dioxide 21 L
BUN 31 H
Creatinine 0.8
Glucose 135 H
Calcium 8.0 L
Total Bilirubin 0.7
AST 99 H
ALT 50
Alkaline Phosphatase 77
Vital Signs:
Vital Signs
Temp Pulse Resp BP Pulse Ox
101.6 F H 93 22 117/71 93
01/19/24 07:10 01/19/24 07:10 01/19/24 07:10 01/19/24 07:10 01/19/24 07:10
I&O
01/18/24 01/19/24 01/20/24
06:59 06:59 06:59
Intake Total 4790 / 4790
Output Total 975 / 975
Balance 3815 / 3815
--- NOTE | 2024-01-19 08:16 | PHA.VAN.FU ---
Vancomycin Assessment / Plan
- Assessment
Renal Function: SCR Decreasing
WBC's are: Stable
In the past 24 hrs, patient has been: Febrile (101.6F)
Concomitant Antimicrobials: cefepime
- Dosing Plan
Continue: 1250mg q12h
- Monitoring Plan
Peak Level: 01/19 @2100
Trough Level: 01/20 @0530
- Follow Up
Pharmacy will continue to follow.
Vancomycin Follow UP
- -
Patient Age: 68
Vancomycin Day #: 2
Indication: Genito-Urinary Tract (Kidney stent )
Requesting Provider: Dr. Karimi
Pertinent Antimicrobial Allergies:
NKA
Height / Weight:
Height 6 ft 3 in
Actual Weight 105.1 kg
- Vital Signs / Lab Results
Temp Pulse Resp BP Pulse Ox
101.6 F H 93 22 117/71 93
01/19/24 07:10 01/19/24 07:10 01/19/24 07:10 01/19/24 07:10 01/19/24 07:10
Lab Results - Hematology
01/18/24 01/19/24
07:18 06:49
WBC 22.3 H 22.8 H
Lab Results - Chemistry
01/18/24 01/19/24
07:19 06:49
BUN 32 H 31 H
Creatinine 1.1 0.8
Estimated Creat Clear 76 104
Albumin 4.0 2.9 L
01/18/24 01/18/24
10:25 14:00
Lactic Acid 1.9 Cancelled
Lab Results - Urine
01/18/24
09:01
Urine Nitrite (Reflex) Negative
Leukocyte Esterase Rfl 2+ A
Microbiology Results
01/18/24 10:25 Blood Culture - Preliminary
Blood/Venous Positive culture in progress
Gram Stain - Preliminary
[2024-01-19] MEDS: NOVOLOG FLEXPEN-MODERATE RESISTANCE SC ×3 (08:29→17:33)
[2024-01-19] MEDS: GENTAMICIN 55 MG IV (08:56)
--- NOTE | 2024-01-19 09:26 | PTCARENOTE ---
Patient received this morning with temp of 101.6. Dr. Karimi aware. ID consult placed. Positive blood and urine cultures in progress. Patient on vanco and gentamycin added as ordered. Dilauded given for adequate pain relief in both hip areas. IVF
maintained. Patient now on clear liquid diet. Patient aware and understands. WBC this am - 22.8.
--- NOTE | 2024-01-19 10:43 | CON.ID ---
Consultation
-
Date/Time Consultation Requested: 01/19/24 7:56
Date/Time Consultation Performed: 01/19/24 10:43
Requesting Provider: Dr Karimi
Performing Provider: Dr Pace
Reason for Consultation: Bacteremia
Chief Complaint / Past History
Chief Complaint
Rigors and fever with muscle spasm for 1 day
History of Present Illness
Mr Sanon is a 68 year old male with Dm2 who presented here from home for rigors and fever with muscle spasm for 1 day. Recent dx of right ureteral stone status post right ureteroscopy, extraction & double-J stent placement by Dr. Ybarra on 01/09
treated with 5 day course of bactrim. Since then with some difficulty initiating stream.
Of note some lumbar back pain and compression fx T12/L1.
Since arrival here has been spiking fevers to Tmax of 102.3 today still febrile however not as high, wbc 22.8, hgb 11, plt 230, cr 0.8, t bili 0.7, ast 99, alt 50, alt 77, alk phos 77, 01/17 UA: 40-50 wbc/hpf, moderate bacteria, 01/17 blood cultures 1
set with GPCs in pairs/clusters, urine culture 100K enterococcus, Bladder scan 450 ccs, BP stable, initially mildly tachycardic now resolved. Some difficult with extension of the hips bilaterally due to back pain not weakness. No changes in vision
Past History
Additional Past Medical History:
Hypertension, kidney stone, degenerative disc disease, type 2 diabetes, hyperlipidemia.
Additional Past Surgical History:
as per hpi
Allergy History:
No Known Allergies Allergy (Verified 01/10/24 10:22)
Medications Reviewed: Yes
Social History
Tobacco: Non-Smoker
Alcohol: None
Drug: None
Family History
Family History: Not Pertinent
Review of Systems
Review of Systems
General: Fever and Chills
All systems: All other systems were reviewed and were negative
Vital Signs
Temp Pulse Resp BP Pulse Ox
101.6 F H 93 22 117/71 94
01/19/24 07:10 01/19/24 07:10 01/19/24 07:10 01/19/24 07:10 01/19/24 07:40
Physical Exam
Physical Exam
Constitutional: No Acute Distress
Cardiovascular: Regular Rate and S1/S2; Negative Murmur or Rub
Pulmonary: Clear and Symmetric; Negative Wheezes, Rales or Rhonchi
Gastrointestinal: Soft, Non Tender, Non Distended and Normal Bowel Sounds
Extremities: Negative Splinter Hemorrhage
Skin: Warm and Dry; Negative Rash or Jaundice
Lab / Diagnostic Study Results
01/19/24 06:49
01/19/24 06:49
Abs Immat Gran (auto) 0.2 10^3/uL (0-0.05) H 01/18/24 07:18
Absolute Neuts (auto) 19.5 10^3/uL (1.4-6.5) H 01/18/24 07:18
Absolute Lymphs (auto) 0.6 10^3/uL (1.2-3.4) L 01/18/24 07:18
Absolute Monos (auto) 2.0 10^3/uL (0.1-0.6) H 01/18/24 07:18
Absolute Basos (auto) 0.1 10^3/uL (0-0.2) 01/18/24 07:18
Immature Gran % 0.8 % (0-0.5) H 01/18/24 07:18
Neutrophils % 87.4 % (42.2-75.2) H 01/18/24 07:18
Lymphocytes % 2.5 % (20.5-51.1) L 01/18/24 07:18
Monocytes % 9.0 % (1.7-9.3) 01/18/24 07:18
Eosinophils % 0.0 % (0-6) 01/18/24 07:18
Basophils % 0.3 % (0-2) 01/18/24 07:18
Lactic Acid Cancelled 01/18/24 14:00
Microbiology Results
Micro:
01/18/24 10:25 Blood Culture - Preliminary
Blood/Venous No Growth in 24 hours- Final report to follow
01/19/24 08:48 Blood Culture - Pending
Blood/Venous
01/18/24 09:01 Urine Culture - Preliminary
Urine Enterococcus species
01/19/24 08:19 Blood Culture - Pending
Blood/Venous
01/18/24 10:25 Blood Culture - Preliminary
Blood/Venous Positive culture in progress
Gram Stain - Preliminary
Assessment / Plan
Enterococcal Bacteremia (probable)
Pyelonephritis due to Enterococcus
S/p R renal stent
Spinal compression fx
DM2 - check a1c
- repeat blood cultures x2 in progress -follow for clearance
- if bacteremia is persistent then would get TTE and MRI lumbar spine with IV contrast (include T12)
- add ampicillin
- continue vancomycin pending sensi - stop if sensitive
- stop cefepime
- follow clinically
[2024-01-19 11:00] VITALS: BP 111/63
[2024-01-19 12:00] LABS: Glucose - Point of Care 119 mg/dl (70-99)
[2024-01-19] MEDS: MOTRIN 200 MG PO (13:06)
--- NOTE | 2024-01-19 13:23 | PTCARENOTE ---
Patient with rigors. WBC today 22.8. Temperature 100.8. Motrin given and Dilaudid given for pain. Ice packs given to patient for under arms and cold compress for head. at bedside. Antibiotics as ordered. ID following.
[2024-01-19] MEDS: AMPICILLIN 108 MG IV ×3 (13:34→21:03)
[2024-01-19] MEDS: STERILE WATER FOR INJECTION IV ×2 (13:35→21:55)
[2024-01-19 15:10] VITALS: BP 111/71
--- NOTE | 2024-01-19 15:52 | CM ---
CM met with pt bedside
Pt resides with his spouse in a [place] with [place]
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
Pt is independent with his ADLs, no DMEs and drives+
Pt has hx with [facility] and [facility]
PCP- Haseeb Vincent
Rx- [facility] [address]
PT following with recommendations for [facility]N
Referral sent to [facility] per his request
PT has issued bedside WW
Discharge Disposition- home with [facility] (referral pending) and new [facility]
[2024-01-19 16:59] LABS: Glucose - Point of Care 122 mg/dl (70-99)
[2024-01-19] MEDS: ASPIR LOW (ENTERIC COATED) 81 MG PO (17:39)
[2024-01-19 19:38] VITALS: BP 111/68
[2024-01-19 21:14] LABS: Glucose - Point of Care 147 mg/dl (70-99)
[2024-01-19 23:31] VITALS: BP 126/75
[2024-01-20] VITALS (8 sets, daily range): BP systolic 115–145; BP diastolic 67–78; PULSE 82; O2SAT 96
[2024-01-20] MEDS: AMPICILLIN 108 MG IV ×7 (00:51→23:55)
[2024-01-20] MEDS: DILAUDID 1 MG IV ×3 (03:27→19:26)
[2024-01-20] MEDS: MOTRIN 200 MG PO (03:35)
[2024-01-20] MEDS: AMPICILLIN IV (04:45)
[2024-01-20] MEDS: VANCOCIN 275 MG IV (07:38)
--- NOTE | 2024-01-20 07:39 | W.PN.URO.CBU ---
Today's Communication / Plan
-
continue root/stent and antibx
Assessment / Plan
-
s/p ureteroscopy/laser litho and stent
readmit with fever
cx's + for enterococcus
clinically- pt looks better
ID following
continue root and stent
continue to track fevers/wbc and cx's
if objective parameters not sig improved over the next 24hrs- would re-image abd with contrast to r/o abscess along with diagnostics suggested by dr Gaytan
Diagnosis
-
Date of Service: January 20, 2024
-
Patient Diagnosis:
s/p ureteroscopy and stent
urinary retention
suspected pyelonephritis
enterococcal uti/bacteremia
Subjective
-
pt looks ok today
currently af- did spike temps yesterday- wbc pending
only pain is in right hip- no abd or cva tenderness
urine clear from root
cx's+ for enterococcus
Objective
-
Vital Signs
Temp Pulse Resp BP Pulse Ox
98.3 F 74 18 117/72 97
01/20/24 07:00 01/20/24 07:00 01/20/24 07:00 01/20/24 07:00 01/20/24 07:00
Intake and Output
01/19/24 01/20/24 01/21/24
06:59 06:59 06:59
Intake Total 4790 / 4790 2485 / 2485
Output Total 975 / 975 1825 / 1825
Balance 3815 / 3815 660 / 660
Intake:
Oral fluids 1440 / 1440 1260 / 1260
IV fluids (Total) 2350 / 2350 825 / 825
IV piggybacks 1000 / 1000 400 / 400
Output:
Urine, Root 975 / 975 1050 / 1050
Urine, Voided 775 / 775
Review of Systems
-
Constitutional: Fatigue
Respiratory: No Symptoms
Cardiac: No Symptoms
Abdomen/GI: No Symptoms
: Other (root)
Physical Exam
-
General - well developed, well nourished, no acute distress
Abdomen - soft, non-tender, no CVAT
Genitalia - normal- root in place- testicles normal
Skin - warm & dry with no rash
Neuro - AOx3, no motor deficits
Extremities - no clubbing, no cyanosis, no edema
[2024-01-20 07:48] LABS: Glucose - Point of Care 120 mg/dl (70-99)
[2024-01-20 07:53] LABS: Hematocrit 35.5 % (39.0-52.0); Hemoglobin 10.9 g/dL (13.0-18.0); Mean Corp Hgb Conc. 30.7 g/dL (33.0-37.0); Mean Corpuscular Hgb 19.8 pg (27.0-31.0); Mean Corpuscular Volume 64.4 fL (80.0-94.0); Platelet Count 216 10^3/uL (130-400); Red Blood Cell Count 5.51 10^6/uL (4.70-6.10); Red Cell Dist. Width 21.3 % (11.5-14.5); White Blood Cell Count 13.5 10^3/uL (4.8-10.8)
[2024-01-20 07:59] LABS: ALT (SGPT) 60 U/L (0-50); AST (SGOT) 79 U/L (17-59); Albumin 2.8 g/dl (3.5-5.0); Alkaline Phosphatase 87 U/L (38-126); Blood Urea Nitrogen 20 mg/dl (9-20); Calcium 7.8 mg/dl (8.4-10.2); Carbon Dioxide 26 mmol/L (22-30); Chloride 101 mmol/L (98-107); Estimated Creatinine Clearance > 125 ml/min; Glucose 120 mg/dl (70-99); Sodium 132 mmol/L (135-145); Total Bilirubin 0.6 mg/dl (0.2-1.3); eGFR > 60.00
--- NOTE | 2024-01-20 08:19 | PHA.VAN.FU ---
Vancomycin Assessment / Plan
- Assessment
Renal Function: SCR Decreasing
WBC's are: Trending Down
In the past 24 hrs, patient has been: Febrile (101.4F)
Concomitant Antimicrobials: AMPICILLIN
- Dosing Plan
Continue: 1250MG Q12H
- Monitoring Plan
Peak Level: 01/19 2100
Trough Level: 01/20 0530
- Follow Up
Pharmacy will continue to follow.
Vancomycin Follow UP
- -
Patient Age: 68
Vancomycin Day #: 3
Indication: Genito-Urinary Tract (Kidney stent )
Requesting Provider: Dr. Karimi
Pertinent Antimicrobial Allergies:
NKA
Height / Weight:
Height 6 ft 3 in
Actual Weight 105.1 kg
- Vital Signs / Lab Results
Temp Pulse Resp BP Pulse Ox
98.3 F 74 18 117/72 97
01/20/24 07:00 01/20/24 07:00 01/20/24 07:00 01/20/24 07:00 01/20/24 07:00
Lab Results - Hematology
01/18/24 01/19/24 01/20/24
07:18 06:49 06:04
WBC 22.3 H 22.8 H 13.5 H
Lab Results - Chemistry
01/18/24 01/19/24 01/20/24
07:19 06:49 06:04
BUN 32 H 31 H 20
Creatinine 1.1 0.8 0.6 L
Estimated Creat Clear 76 104 > 125
Albumin 4.0 2.9 L 2.8 L
01/18/24 01/18/24
10:25 14:00
Lactic Acid 1.9 Cancelled
Lab Results - Urine
01/18/24
09:01
Urine Nitrite (Reflex) Negative
Leukocyte Esterase Rfl 2+ A
Microbiology Results
01/18/24 10:25 Blood Culture - Preliminary
Blood/Venous No Growth in 24 hours- Final report to follow
01/18/24 09:01 Urine Culture - Preliminary
Urine Enterococcus species
01/18/24 10:25 Blood Culture - Preliminary
Blood/Venous Positive culture in progress
Gram Stain - Preliminary
[2024-01-20] MEDS: NOVOLOG FLEXPEN-MODERATE RESISTANCE SC ×2 (08:38→16:37)
[2024-01-20] MEDS: TYLENOL 1000 MG PO ×3 (09:21→21:14)
[2024-01-20] MEDS: HEPARIN 5000 UNITS SC ×2 (09:21→19:35)
[2024-01-20 11:21] LABS: Glycohemoglobin (HgbA1c) 6.7 % (4.0-5.6)
[2024-01-20 11:28] LABS: Glucose - Point of Care 150 mg/dl (70-99)
[2024-01-20] MEDS: STERILE WATER FOR INJECTION IV ×2 (12:26→19:39)
[2024-01-20] MEDS: NSS 1000 IV ×2 (12:28→16:15)
[2024-01-20] MEDS: NOVOLOG FLEXPEN-MODERATE RESISTANCE 1 UNITS SC (12:28)
--- NOTE | 2024-01-20 12:53 | W.PN.HOSP.TC ---
Today's Communication/Plan
-
.
Assessment / Plan
Assessment / Plan
Physical Exam
General: pain in right flank with rigors.
HEENT: Moist mucous membranes and Atraumatic
Respiratory: Clear and Decreased Breath Sounds; No Wheezes
Cardiac: S1/S2
GI: Soft, Non Tender and Distended
Genito-urinary: Turbid Urine; No Bloody Urine
Musculoskeletal: No Clubbing, No Cyanosis and No Edema
Skin: Warm; No Jaundice
Neuro: AO x 3 and Nonfocal/grossly intact
Psych: Calm and Intact Judgment/Insight
68 years old male presented with fever and was found to have urine tract infection, recent vaccination, lower back pain.
# Sepsis/present on admission, UTI, right pyelonephritis related to recent stent
Combination of tachycardia, leukocytosis, high temperature, rigors, cloudy urine with difficulty urination
No hypotension
Patient is still having fever, rigors with persistent leukocytosis but WBC is coming down
s/p IV Cefepime and IV Vancomycin, now on Vancomycin and ampicillin
He might need further intervention if no reasonable improvement
Tylenol for fever
Added Advil PRN for high fevers
c/w mild IVF
Appreciate urology & ID input
# Enterococcus bacteremia on 01/17
c/w IV Abx
Reculture
Appreciate ID help
# Severe lower back pain with radiculopathy. CAT Scan showed chronic T12/L1 compression deformities/multilevel degenerative changes of lumbar spine
Fever and UTI are contributing to discomfort
c/w Tylenol [id number], as needed Dilaudid
Continue with PT/OT as tolerated
# Recent pneumonia vaccination with systemic response
Continue supportive care. Tylenol
# History of type 2 diabetes.
AM BS 120
Avoid hypoglycemia
HGB A1C 6.7
Diabetic diet
Insulin sliding scale
# Primary hypertension. Avoid hypotension. Monitor blood pressure
#Mild transaminitis. Coming down No abdominal tenderness on examination. Likely secondary to ongoing infection. Will monitor
# Hyponatremia, mild
# DVT prophylaxis, SQ heparin
Total time spent to see the patient, examine the patient on the floor, review data and lab results, discuss treatment plan with patient, urology and nursing staff around 55 minutes
Anticipated Discharge: > 48 hours
Subjective/Interval History
-
Date of Service: January 20, 2024
Still fevers at times
Less rigors
No chest pain
No right flank pain
Objective Data
-
Labs:
Laboratory Results
01/20/24
06:04
WBC 13.5 H
Hgb 10.9 L
Hct 35.5 L
Plt Count 216
Sodium 132 L
Potassium 4.0
Chloride 101
Carbon Dioxide 26
BUN 20
Creatinine 0.6 L
Glucose 120 H
Calcium 7.8 L
Total Bilirubin 0.6
AST 79 H
ALT 60 H
Alkaline Phosphatase 87
Vital Signs:
Vital Signs
Temp Pulse Resp BP Pulse Ox
99.1 F 79 18 115/67 95
01/20/24 11:00 01/20/24 11:00 01/20/24 11:00 01/20/24 11:00 01/20/24 11:00
I&O
01/19/24 01/20/24 01/21/24
06:59 06:59 06:59
Intake Total 4790 / 4790 2485 / 2485
Output Total 975 / 975 1825 / 1825
Balance 3815 / 3815 660 / 660
--- NOTE | 2024-01-20 14:26 | W.PN.ID1 ---
Date of Service
Date of Service: January 20, 2024
Today's Communication
- Im cautiously optimisitc patient may be improving
- repeat blood cultures x2 in progress - no growth to date
- if bacteremia is persistent then would get TTE and MRI lumbar spine with IV contrast (include T12)
- continue ampicillin
- stop vancomycin
Assessment / Plan
Enterococcal Bacteremia (probable)
Pyelonephritis due to Enterococcus
S/p R renal stent
Spinal compression fx
DM2 - controlled
- Im cautiously optimisitc patient may be improving
- repeat blood cultures x2 in progress - no growth to date
- if bacteremia is persistent then would get TTE and MRI lumbar spine with IV contrast (include T12)
- continue ampicillin
- stop vancomycin
- follow clinically
Chief Complaint
-: Fever and Bacteremia
Subjective / Review of Systems
fever curve yet to improve
bp stable
back pain improved
up and walking to the bathroom
still with pain with BL leg extension
Vital Signs / Physical Exam
Vital Signs
Vital Signs
Temp Pulse Resp BP Pulse Ox
99.1 F 79 18 115/67 95
01/20/24 11:00 01/20/24 11:00 01/20/24 11:00 01/20/24 11:00 01/20/24 11:00
Physical Exam
Constitutional: No Acute Distress
Cardiovascular: Regular Rate and S1/S2; Negative Murmur or Rub
Pulmonary: Clear and Symmetric; Negative Wheezes or Rales
Gastrointestinal: Soft, Non Tender, Non Distended and Normal Bowel Sounds
Skin: Warm and Dry; Negative Rash or Jaundice
Objective Data
Lab Data
Lab Results
01/20/24 06:04
01/20/24 06:04
Estimated Creat Clear > 125 ml/min 05/19/24 06:04
Lactic Acid Cancelled 01/18/24 14:00
Total Bilirubin 0.6 mg/dl (0.2-1.3) 01/20/24 06:04
AST 79 U/L (17-59) H 01/20/24 06:04
ALT 60 U/L (0-50) H 01/20/24 06:04
Alkaline Phosphatase 87 U/L (38-126) 01/20/24 06:04
Most recent labs reviewed.
Micro Results:
01/18/24 10:25 Blood Culture - Preliminary
Blood/Venous Enterococcus species
Gram Stain - Preliminary
01/18/24 10:25 Blood Culture - Preliminary
Blood/Venous No Growth in 48 hours- Final report to follow
01/18/24 09:01 Urine Culture - Final
Urine Enterococcus faecalis
01/19/24 08:48 Blood Culture - Preliminary
Blood/Venous No Growth in 24 hours- Final report to follow
01/19/24 08:19 Blood Culture - Preliminary
Blood/Venous No Growth in 24 hours- Final report to follow
[2024-01-20] MEDS: TESSALON PERLES 200 MG PO (16:18)
[2024-01-20 16:28] LABS: Glucose - Point of Care 135 mg/dl (70-99)
[2024-01-20] MEDS: ASPIR LOW (ENTERIC COATED) 81 MG PO (17:22)
[2024-01-20] MEDS: ProAIR HFA INHALER 2 PUFF INH (20:59)
[2024-01-20 21:11] LABS: Glucose - Point of Care 135 mg/dl (70-99)
[2024-01-21] VITALS (7 sets, daily range): BP systolic 123–139; BP diastolic 69–78
[2024-01-21] MEDS: AMPICILLIN 108 MG IV ×5 (03:54→20:54)
[2024-01-21 05:43] LABS: Hematocrit 33.7 % (39.0-52.0); Hemoglobin 10.4 g/dL (13.0-18.0); Mean Corp Hgb Conc. 30.9 g/dL (33.0-37.0); Mean Corpuscular Hgb 19.8 pg (27.0-31.0); Mean Corpuscular Volume 64.3 fL (80.0-94.0); Mean Platelet Volume 10.1 fL (7.4-10.4); Platelet Count 220 10^3/uL (130-400); Red Blood Cell Count 5.24 10^6/uL (4.70-6.10); Red Cell Dist. Width 21.3 % (11.5-14.5); White Blood Cell Count 10.1 10^3/uL (4.8-10.8)
[2024-01-21] MEDS: NSS 1000 IV (05:55)
[2024-01-21 06:06] LABS: ALT (SGPT) 63 U/L (0-50); AST (SGOT) 60 U/L (17-59); Albumin 2.6 g/dl (3.5-5.0); Alkaline Phosphatase 92 U/L (38-126); Blood Urea Nitrogen 19 mg/dl (9-20); Calcium 8.2 mg/dl (8.4-10.2); Carbon Dioxide 27 mmol/L (22-30); Chloride 101 mmol/L (98-107); Estimated Creatinine Clearance > 125 ml/min; Glucose 148 mg/dl (70-99); Potassium 3.6 mmol/L (3.5-5.1); Sodium 135 mmol/L (135-145); Total Bilirubin 0.4 mg/dl (0.2-1.3); Total Protein 4.7 g/dl (6.3-8.2); eGFR > 60.00
[2024-01-21 07:17] LABS: Glucose - Point of Care 129 mg/dl (70-99)
--- NOTE | 2024-01-21 07:53 | W.PN.URO.CBU ---
Today's Communication / Plan
-
continue root and stent
antibx per ID
Assessment / Plan
-
s/p ureteroscopy/laser litho and stent
readmit with fever
cx's + for enterococcus
clinically- pt looks better
fevers curve improved and wbc normalized
will continue root and stent- dr humphreys will discuss timing fo removal with pt
no need for any further gu imaging at this time
will follow
Diagnosis
-
Date of Service: January 21, 2024
-
Patient Diagnosis:
s/p ureteroscopy and stent
urinary retention
suspected pyelonephritis
enterococcal uti/bacteremia
Subjective
-
pt feels fatigued- bbut overall better
fever curve improving- wbc normalized
urine clear
ucx- enterococcus sens to amp
Objective
-
Vital Signs
Temp Pulse Resp BP Pulse Ox
97.8 F 63 19 130/69 97
01/21/24 03:55 01/21/24 03:55 01/21/24 03:55 01/21/24 03:55 01/21/24 03:55
Intake and Output
01/20/24 01/21/24 01/22/24
06:59 06:59 06:59
Intake Total 2485 / 2485 4659 / 4659
Output Total 1825 / 1825 1949
Balance 660 / 660 2709 / 2709
Intake:
Oral fluids 1260 / 1260 3160 / 3160
IV fluids (Total) 825 / 825 900 / 900
IV piggybacks 400 / 400 599 / 599
Output:
Urine, Root 1050 / 1050 1949
Urine, Voided 775 / 775
Laboratory Results
01/21/24 04:33
01/21/24 04:33
Review of Systems
-
Constitutional: Fever and Fatigue
Respiratory: No Symptoms
Cardiac: No Symptoms
Abdomen/GI: No Symptoms
Physical Exam
-
General - no acute distress
Abdomen - soft, non-tender,
Genitalia - root in place
[2024-01-21] MEDS: NOVOLOG FLEXPEN-MODERATE RESISTANCE SC ×3 (08:07→16:39)
[2024-01-21] MEDS: HEPARIN 5000 UNITS SC ×2 (08:08→20:56)
[2024-01-21] MEDS: TYLENOL 1000 MG PO ×3 (08:08→20:56)
--- NOTE | 2024-01-21 09:11 | W.PN.HOSP.TC ---
Today's Communication/Plan
-
Continue IV antibiotics. Follow-up cultures.
Assessment / Plan
Assessment / Plan
Physical Exam
General: Acutely ill but nontoxic
HEENT: Moist mucous membranes and Atraumatic
Respiratory: Clear and Decreased Breath Sounds; No Wheezes
Cardiac: S1/S2
GI: Soft, Non Tender and Distended
Genito-urinary: Turbid Urine; No Bloody Urine
Musculoskeletal: No Clubbing, No Cyanosis and No Edema
Skin: Warm; No Jaundice
Neuro: AO x 3 and Nonfocal/grossly intact
Psych: Calm and Intact Judgment/Insight
68 years old male presented with fever and was found to have urine tract infection, recent vaccination, lower back pain.
# Sepsis/present on admission, UTI, right pyelonephritis related to recent stent
Combination of tachycardia, leukocytosis, high temperature, rigors, cloudy urine with difficulty urination
No hypotension
Continue IV antibiotics
Urology follow-up appreciated they recommended continue العلي catheter and ureteral stent as well as current antibiotics.
Patient tells me that العلي catheter was placed here in this hospitalization. Will need to check with urology if voiding trial but most likely he will need to go with العلي catheter.
Appreciated ID consult--> we will follow-up further recommendations
# Enterococcus bacteremia on 01/17
c/w IV Abx, IV ampicillin
Reculture and negative so far
Appreciate ID help
# Severe lower back pain with radiculopathy. CAT Scan showed chronic T12/L1 compression deformities/multilevel degenerative changes of lumbar spine
Fever and UTI are contributing to discomfort
c/w Tylenol [id number], as needed Dilaudid
Continue with PT/OT as tolerated
# Recent pneumonia vaccination with systemic response
Continue supportive care. Tylenol
# History of type 2 diabetes.
Avoid hypoglycemia
HGB A1C 6.7
Diabetic diet
Insulin sliding scale
# Primary hypertension. Avoid hypotension. Monitor blood pressure
#Mild transaminitis. Coming down No abdominal tenderness on examination. Likely secondary to ongoing infection. Will monitor
# Hyponatremia, mild
# DVT prophylaxis, SQ heparin
Total time spent to see the patient, examine the patient on the floor, review data and lab results, discuss treatment plan with patient, urology and nursing staff around 55 minutes
Anticipated Discharge: 24 - 48 hours
Subjective/Interval History
-
Date of Service: January 21, 2024
Patient feels better overall today, no abdominal pain nausea or vomiting. Afebrile.
Objective Data
-
Labs:
Laboratory Results
01/21/24
04:33
WBC 10.1
Hgb 10.4 L
Hct 33.7 L
Plt Count 220
Sodium 135
Potassium 3.6
Chloride 101
Carbon Dioxide 27
BUN 19
Creatinine 0.6 L
Glucose 148 H
Calcium 8.2 L
Total Bilirubin 0.4
AST 60 H
ALT 63 H
Alkaline Phosphatase 92
Vital Signs:
Vital Signs
Temp Pulse Resp BP Pulse Ox
98.2 F 77 20 125/71 97
01/21/24 07:55 01/21/24 07:55 01/21/24 07:55 01/21/24 07:55 01/21/24 07:55
I&O
01/20/24 01/21/24 01/22/24
06:59 06:59 06:59
Intake Total 2485 / 2485 4659 / 4659
Output Total 182 / 1825 1949 / 1949
Balance 660 / 660 2709 / 2709
[2024-01-21 11:48] LABS: Glucose - Point of Care 135 mg/dl (70-99)
[2024-01-21] MEDS: STERILE WATER FOR INJECTION IV (12:03)
[2024-01-21] MEDS: DILAUDID 1 MG IV (13:13)
--- NOTE | 2024-01-21 14:08 | W.PN.ID1 ---
Date of Service
Date of Service: January 21, 2024
Today's Communication
- add levofloxacin, recheck QTc in the AM
- follow clinically, if patient remains afebrile then would plan 2 more weeks of levofloxacin
Assessment / Plan
Enterococcal Bacteremia (probable)
Pyelonephritis due to Enterococcus
S/p R renal stent
Spinal compression fx
DM2 - controlled
- CT re-reviewed and note 'moderate to severe bilateral neural foraminal stenoses at these levels signed report'
- repeat blood cultures x2 in progress - no growth to date
- source of bacteremia confirmed
- continue ampicillin another day
- add levofloxacin, recheck QTc in the AM
- follow clinically, if patient remains afebrile then would plan 2 more weeks of levofloxacin
Chief Complaint
-: Fever and Bacteremia
Subjective / Review of Systems
fever curve trending down
bp stable
leukocytosis has resolved
cr stable
01/18 blood cultures no growth at 48 hrs
Vital Signs / Physical Exam
Vital Signs
Vital Signs
Temp Pulse Resp BP Pulse Ox
99.2 F 77 16 126/69 96
01/21/24 11:33 01/21/24 11:33 01/21/24 11:33 01/21/24 11:33 01/21/24 11:33
Physical Exam
Constitutional: No Acute Distress and Chronically Ill
Cardiovascular: Regular Rate and S1/S2; Negative Murmur or Rub
Pulmonary: Clear and Symmetric; Negative Wheezes or Rales
Gastrointestinal: Soft, Non Tender, Non Distended and Normal Bowel Sounds
Skin: Warm and Dry; Negative Rash or Jaundice
Objective Data
Lab Data
Lab Results
01/21/24 04:33
01/21/24 04:33
Estimated Creat Clear > 125 ml/min 01/21/24 04:33
Lactic Acid Cancelled 01/18/24 14:00
Total Bilirubin 0.4 mg/dl (0.2-1.3) 01/21/24 04:33
AST 60 U/L (17-59) H 01/21/24 04:33
ALT 63 U/L (0-50) H 01/21/24 04:33
Alkaline Phosphatase 92 U/L (38-126) 01/21/24 04:33
Most recent labs reviewed.
Micro Results:
01/18/24 10:25 Blood Culture - Preliminary
Blood/Venous Enterococcus faecalis
Gram Stain - Preliminary
01/18/24 10:25 Blood Culture - Preliminary
Blood/Venous No Growth in 72 hours- Final report to follow
01/19/24 08:48 Blood Culture - Preliminary
Blood/Venous No Growth in 48 hours- Final report to follow
01/19/24 08:19 Blood Culture - Preliminary
Blood/Venous No Growth in 48 hours- Final report to follow
01/18/24 09:01 Urine Culture - Final
Urine Enterococcus faecalis
[2024-01-21] MEDS: LEVAQUIN 750 MG PO (15:51)
[2024-01-21 16:20] LABS: Glucose - Point of Care 126 mg/dl (70-99)
--- NOTE | 2024-01-21 17:05 | CM ---
Spoke with pt he said he wanted [facility] at [facility].
He cares for his disabled son at home also.
PLAN Home with Jorge [facility]
[2024-01-21] MEDS: ASPIR LOW (ENTERIC COATED) 81 MG PO (17:44)
[2024-01-21 21:29] LABS: Glucose - Point of Care 125 mg/dl (70-99)
[2024-01-22] MEDS: NSS 1000 IV (00:36)
[2024-01-22] MEDS: AMPICILLIN 108 MG IV ×6 (00:37→23:51)
[2024-01-22] MEDS: STERILE WATER FOR INJECTION IV ×2 (00:43→13:06)
[2024-01-22] MEDS: COMPAZINE 5 MG IV ×3 (01:36→23:40)
[2024-01-22 03:25] VITALS: BP 127/71
[2024-01-22 05:27] LABS: % Basophils 0.9 % (0-2); % Eosinophils 2.9 % (0-6); % Immature Granulocytes 1.3 % (0-0.5); % Monocytes 15.1 % (1.7-9.3); % Neutrophils 66.8 % (42.2-75.2); Absolute Basophils 0.1 10^3/uL (0-0.2); Absolute Eosinophils 0.3 10^3/uL (0-0.7); Absolute Immature Granulocytes 0.1 10^3/uL (0-0.05); Absolute Lymphocytes 1.1 10^3/uL (1.2-3.4); Absolute Monocytes 1.3 10^3/uL (0.1-0.6); Absolute Neutrophils 5.7 10^3/uL (1.4-6.5); Hematocrit 36.7 % (39.0-52.0); Hemoglobin 11.1 g/dL (13.0-18.0); Mean Corp Hgb Conc. 30.2 g/dL (33.0-37.0); Mean Corpuscular Hgb 19.6 pg (27.0-31.0); Mean Corpuscular Volume 64.8 fL (80.0-94.0); Mean Platelet Volume 9.7 fL (7.4-10.4); Nucleated Red Blood Cells % 0 % (-); Platelet Count 253 10^3/uL (130-400); Red Blood Cell Count 5.66 10^6/uL (4.70-6.10); Red Cell Dist. Width 21.2 % (11.5-14.5); White Blood Cell Count 8.6 10^3/uL (4.8-10.8)
[2024-01-22 05:49] LABS: Blood Urea Nitrogen 14 mg/dl (9-20); Calcium 8.5 mg/dl (8.4-10.2); Carbon Dioxide 28 mmol/L (22-30); Chloride 100 mmol/L (98-107); Estimated Creatinine Clearance > 125 ml/min; Glucose 123 mg/dl (70-99); Potassium 4.2 mmol/L (3.5-5.1); Sodium 134 mmol/L (135-145); eGFR > 60.00
[2024-01-22 07:13] LABS: Glucose - Point of Care 105 mg/dl (70-99)
[2024-01-22 07:55] VITALS: BP 130/79
[2024-01-22] MEDS: NOVOLOG FLEXPEN-MODERATE RESISTANCE SC ×2 (08:08→16:49)
[2024-01-22] MEDS: HEPARIN 5000 UNITS SC ×2 (08:10→20:30)
[2024-01-22] MEDS: FLUSH (NSS) 1 FLUSH IV ×4 (08:10→17:56)
[2024-01-22] MEDS: LEVAQUIN 750 MG PO (08:12)
[2024-01-22] MEDS: TYLENOL 1000 MG PO ×3 (08:12→21:36)
--- NOTE | 2024-01-22 08:14 | W.PN.HOSP.TC ---
Today's Communication/Plan
-
IV antibiotics.
Assessment / Plan
Assessment / Plan
Physical Exam
General: Acutely ill but nontoxic
HEENT: Moist mucous membranes and Atraumatic
Respiratory: Clear and Decreased Breath Sounds; No Wheezes
Cardiac: S1/S2
GI: Soft, Non Tender and Distended
Genito-urinary: Turbid Urine; No Bloody Urine
Musculoskeletal: No Clubbing, No Cyanosis and No Edema
Skin: Warm; No Jaundice
Neuro: AO x 3 and Nonfocal/grossly intact
Psych: Calm and Intact Judgment/Insight
68 years old male presented with fever and was found to have urine tract infection, recent vaccination, lower back pain.
# Sepsis/present on admission, UTI, right pyelonephritis related to recent stent
Combination of tachycardia, leukocytosis, high temperature, rigors, cloudy urine with difficulty urination
No hypotension
Continue IV antibiotics
Urology follow-up appreciated they recommended continue العلي catheter and ureteral stent as well as current antibiotics.
Patient tells me that العلي catheter was placed here in this hospitalization. Will need to check with urology if voiding trial but most likely he will need to go with العلي catheter.
Appreciated ID consult and follow-up--> per ID continue IV ampicillin and transition to Levaquin
Urology reach out to me today and they are planning to remove stent and العلي catheter over the next couple days and recommended to continue IV antibiotics until then
I sent message to ID about above recommendations.
# Enterococcus bacteremia on 01/17
c/w IV Abx, IV ampicillin
Reculture and negative so far
Urology reach out to me today and they are planning to remove stent and العلي catheter over the next couple days and recommended to continue IV antibiotics until then
Appreciate ID help
# Severe lower back pain with radiculopathy. CAT Scan showed chronic T12/L1 compression deformities/multilevel degenerative changes of lumbar spine
Fever and UTI are contributing to discomfort
c/w Tylenol [id number], as needed Dilaudid
Continue with PT/OT as tolerated
# Recent pneumonia vaccination with systemic response
Continue supportive care. Tylenol
# History of type 2 diabetes.
Avoid hypoglycemia
HGB A1C 6.7
Diabetic diet
Insulin sliding scale
# Primary hypertension. Avoid hypotension. Monitor blood pressure
#Mild transaminitis. Coming down No abdominal tenderness on examination. Likely secondary to ongoing infection. Will monitor
# Hyponatremia, mild
# DVT prophylaxis, SQ heparin
Total time spent to see the patient, examine the patient on the floor, review data and lab results, discuss treatment plan with patient, urology and nursing staff around 55 minutes
Anticipated Discharge: > 48 hours
Subjective/Interval History
-
Date of Service: January 22, 2024
Patient denies any chest pain or shortness of breath. Afebrile.
Objective Data
-
Labs:
Laboratory Results
01/22/24 01/22/24
04:49 04:50
WBC 8.6
Hgb 11.1 L
Hct 36.7 L
Plt Count 253
Sodium 134 L
Potassium 4.2
Chloride 100
Carbon Dioxide 28
BUN 14
Creatinine 0.6 L
Glucose 123 H
Calcium 8.5
Vital Signs:
Vital Signs
Temp Pulse Resp BP Pulse Ox
98.5 F 74 19 127/71 98
01/22/24 03:25 01/22/24 03:25 01/22/24 03:25 01/22/24 03:25 01/22/24 08:05
I&O
01/21/24 01/22/24 01/23/24
06:59 06:59 06:59
Intake Total 4659 / 4659 2844 / 2844
Output Total 1949 / 1949 3000 / 3000
Balance 2709 / 2709 -156 / -156
[2024-01-22 10:55] VITALS: BP 135/69; PULSE 64
[2024-01-22 11:40] LABS: Glucose - Point of Care 193 mg/dl (70-99)
--- NOTE | 2024-01-22 12:29 | W.PN.ID1 ---
Date of Service
Date of Service: January 22, 2024
Today's Communication
- urology requested we continue ampicillin until - no objection, will continue - as bacteremia not presistent adjusted to 2 gm IV q6hr
- hold levofloxacin for now, will restart after stent removal and continue through 01/31
- follow clinically
Assessment / Plan
Pyelonephritis due to Enterococcus
Enterococcal Bacteremia due to pyelonephritis
S/p R renal stent
Spinal compression fx
DM2 - controlled
- repeat blood cultures x2 in progress - no growth to date
- source of bacteremia confirmed
- QTc remains acceptable
- urology requested we continue ampicillin until - no objection, will continue and then switch to levaquin that evening - as bacteremia not persistent adjusted ampicillin to 2 gm IV q6hr
- hold levofloxacin for now, will restart after stent removal and continue through 01/31
- follow clinically
Chief Complaint
-: Fever and Bacteremia
Subjective / Review of Systems
afebrile
bp stable
without leukocytosis
cr stable
blood cultures have cleared
walking with OT without issue
Vital Signs / Physical Exam
Vital Signs
Vital Signs
Temp Pulse Resp BP Pulse Ox
98.6 F 61 16 130/79 98
01/22/24 07:55 01/22/24 07:55 01/22/24 07:55 01/22/24 07:55 01/22/24 08:05
Physical Exam
Constitutional: No Acute Distress
Cardiovascular: Regular Rate and S1/S2; Negative Murmur or Rub
Pulmonary: Clear and Symmetric; Negative Wheezes or Rales
Gastrointestinal: Soft, Non Tender, Non Distended and Normal Bowel Sounds
Skin: Warm and Dry; Negative Rash or Jaundice
Objective Data
Lab Data
Lab Results
01/22/24 04:49
01/22/24 04:50
Estimated Creat Clear > 125 ml/min 01/22/24 04:50
Lactic Acid Cancelled 01/18/24 14:00
Total Bilirubin 0.4 mg/dl (0.2-1.3) 01/21/24 04:33
AST 60 U/L (17-59) H 01/21/24 04:33
ALT 63 U/L (0-50) H 01/21/24 04:33
Alkaline Phosphatase 92 U/L (38-126) 01/21/24 04:33
Most recent labs reviewed.
Micro Results:
01/18/24 10:25 Blood Culture - Preliminary
Blood/Venous No Growth in 4 days- Final report to follow
01/19/24 08:48 Blood Culture - Preliminary
Blood/Venous No Growth in 72 hours- Final report to follow
01/19/24 08:19 Blood Culture - Preliminary
Blood/Venous No Growth in 72 hours- Final report to follow
01/18/24 10:25 Blood Culture - Preliminary
Blood/Venous Enterococcus faecalis
Gram Stain - Preliminary
01/18/24 09:01 Urine Culture - Final
Urine Enterococcus faecalis
--- NOTE | 2024-01-22 12:36 | W.PN.URO.CBU ---
Today's Communication / Plan
-
for op room no changes otherwise
Assessment / Plan
-
s/p ureteroscopy/laser litho and stent
readmit with fever
cx's + for enterococcus
clinically- pt looks better
fevers curve improved and wbc normalized
will continue ib[v abs Pt schedued 899 for stent removal and voiding trial
no need for any further gu imaging at this time
will follow
Diagnosis
-
Date of Service: January 22, 2024
-
Patient Diagnosis:
Post Op Day:
Patient Diagnosis:
s/p ureteroscopy and stent
urinary retention
suspected pyelonephritis
enterococcal uti/bacteremia
Subjective
-
no fever today
Objective
-
Vital Signs
Temp Pulse Resp BP Pulse Ox
98.6 F 61 16 130/79 98
01/22/24 07:55 01/22/24 07:55 01/22/24 07:55 01/22/24 07:55 01/22/24 08:05
Intake and Output
01/21/24 01/22/24 01/23/24
06:59 06:59 06:59
Intake Total 4659 / 4659 2844 / 2844
Output Total 1949 3000 / 3000
Balance 2709 / 2709 -156 / -156
Intake:
Oral fluids 3160 / 3160 840 / 840
IV fluids (Total) 900 / 900 1380 / 1380
IV piggybacks 599 / 599 624 / 624
Output:
Urine, العلي 1949 3000 / 3000
Laboratory Results
01/22/24 04:49
01/22/24 04:50
Review of Systems
-
: Difficulty Voiding
Physical Exam
-
General - well developed, well nourished, no acute distress
Chest - clear bilaterally
Abdomen - soft, non-tender, positive bowel sounds, no CVAT, no incisional pain or distention
Genitalia - normal
Rectal - normal
Skin - warm & dry with no rash
Neuro - AOx3, no motor deficits
Extremities - no clubbing, no cyanosis, no edema
Incision - clean, dry
Dressing - clean, dry, intact
Care Review
Data Reviewed
Discussed with: Hospitalist
[2024-01-22] MEDS: NOVOLOG FLEXPEN-MODERATE RESISTANCE 1 UNITS SC (12:48)
[2024-01-22] MEDS: DILAUDID 1 MG IV ×2 (15:45→23:41)
[2024-01-22 15:55] VITALS: BP 148/75
--- NOTE | 2024-01-22 16:10 | PTCARENOTE ---
Pt AAO x3, WILSON; refused OOB to chair activity so far this shift; stated 'I was up in a chair from midnight to 4 am last night'. Pt c/o generalized body aches- IV Dilaudid 1 mg given, will assess effectiveness. VSS. On room air- pulse ox 97%. Abd
obese, soft, ramya PO; appetite fair; pt c/o mild nausea- good effect with IV Compazine. العلي P/I large amts clear yellow urine. Resting in bed at present. Will continue to monitor.
[2024-01-22 16:43] LABS: Glucose - Point of Care 124 mg/dl (70-99)
[2024-01-22] MEDS: ASPIR LOW (ENTERIC COATED) 81 MG PO (17:55)
[2024-01-22 21:10] LABS: Glucose - Point of Care 120 mg/dl (70-99)
[2024-01-22 23:55] VITALS: BP 141/80
[2024-01-23] MEDS: AMPICILLIN 108 MG IV ×4 (05:25→23:13)
[2024-01-23 07:26] LABS: % Basophils 0.9 % (0-2); % Eosinophils 3.6 % (0-6); % Immature Granulocytes 2.6 % (0-0.5); % Lymphocytes 11.6 % (20.5-51.1); % Monocytes 13.5 % (1.7-9.3); % Neutrophils 67.8 % (42.2-75.2); Absolute Basophils 0.1 10^3/uL (0-0.2); Absolute Eosinophils 0.3 10^3/uL (0-0.7); Absolute Immature Granulocytes 0.2 10^3/uL (0-0.05); Absolute Lymphocytes 1.1 10^3/uL (1.2-3.4); Absolute Monocytes 1.3 10^3/uL (0.1-0.6); Absolute Neutrophils 6.3 10^3/uL (1.4-6.5); Hematocrit 38.4 % (39.0-52.0); Hemoglobin 11.5 g/dL (13.0-18.0); Mean Corp Hgb Conc. 29.9 g/dL (33.0-37.0); Mean Corpuscular Hgb 19.5 pg (27.0-31.0); Mean Corpuscular Volume 65.2 fL (80.0-94.0); Nucleated Red Blood Cells % 0 % (-); Platelet Count 309 10^3/uL (130-400); Red Blood Cell Count 5.89 10^6/uL (4.70-6.10); Red Cell Dist. Width 21.2 % (11.5-14.5); White Blood Cell Count 9.3 10^3/uL (4.8-10.8)
[2024-01-23 07:47] LABS: Blood Urea Nitrogen 11 mg/dl (9-20); Calcium 8.8 mg/dl (8.4-10.2); Carbon Dioxide 30 mmol/L (22-30); Chloride 97 mmol/L (98-107); Estimated Creatinine Clearance > 125 ml/min; Glucose 125 mg/dl (70-99); Potassium 4.1 mmol/L (3.5-5.1); Sodium 134 mmol/L (135-145); eGFR > 60.00
[2024-01-23 07:56] VITALS: BP 137/76
[2024-01-23 08:23] LABS: Glucose - Point of Care 125 mg/dl (70-99)
--- NOTE | 2024-01-23 08:53 | W.PN.HOSP.TC ---
Today's Communication/Plan
-
Continue antibiotics. Plan for removal of catheter/stent per urology
Assessment / Plan
Assessment / Plan
Physical Exam
General: Acutely ill but nontoxic
HEENT: Moist mucous membranes and Atraumatic
Respiratory: Clear and Decreased Breath Sounds; No Wheezes
Cardiac: S1/S2
GI: Soft, Non Tender and Distended
Genito-urinary: Turbid Urine; No Bloody Urine
Musculoskeletal: No Clubbing, No Cyanosis and No Edema
Skin: Warm; No Jaundice
Neuro: AO x 3 and Nonfocal/grossly intact
Psych: Calm and Intact Judgment/Insight
68 years old male presented with fever and was found to have urine tract infection, recent vaccination, lower back pain.
# Sepsis/present on admission, UTI, right pyelonephritis related to recent stent
Combination of tachycardia, leukocytosis, high temperature, rigors, cloudy urine with difficulty urination
No hypotension
Continue IV antibiotics
Urology follow-up appreciated they recommended continue العلي catheter and ureteral stent as well as current antibiotics.
Patient tells me that العلي catheter was placed here in this hospitalization. Will need to check with urology if voiding trial but most likely he will need to go with العلي catheter.
Appreciated ID consult and follow-up--> per ID continue IV ampicillin and transition to Levaquin
Urology reach out to me today and they are planning to remove stent and العلي catheter over the next couple days and recommended to continue IV antibiotics until then
I sent message to ID about above recommendations.
# Enterococcus bacteremia on 01/17
c/w IV Abx, IV ampicillin
Reculture and negative so far
Urology reach out to me today and they are planning to remove stent and العلي catheter over the next couple days and recommended to continue IV antibiotics until then
Appreciate ID help
# Severe lower back pain with radiculopathy. CAT Scan showed chronic T12/L1 compression deformities/multilevel degenerative changes of lumbar spine
Fever and UTI are contributing to discomfort
c/w Tylenol [id number], as needed Dilaudid
Continue with PT/OT as tolerated
# Recent pneumonia vaccination with systemic response
Continue supportive care. Tylenol
# History of type 2 diabetes.
Avoid hypoglycemia
HGB A1C 6.7
Diabetic diet
Insulin sliding scale
# Primary hypertension. Avoid hypotension. Monitor blood pressure
#Mild transaminitis. Coming down No abdominal tenderness on examination. Likely secondary to ongoing infection. Will monitor
# Hyponatremia, mild
# DVT prophylaxis, SQ heparin
Anticipated Discharge: Within 24 hours
Subjective/Interval History
-
Date of Service: January 23, 2024
Patient feels well, no abdominal pain. Afebrile
Objective Data
-
Labs:
Laboratory Results
01/23/24
06:19
WBC 9.3
Hgb 11.5 L
Hct 38.4 L
Plt Count 309 D
Sodium 134 L
Potassium 4.1
Chloride 97 L
Carbon Dioxide 30
BUN 11
Creatinine 0.6 L
Glucose 125 H
Calcium 8.8
Vital Signs:
Vital Signs
Temp Pulse Resp BP Pulse Ox
98.3 F 77 18 137/76 96
01/23/24 07:56 01/23/24 07:56 01/23/24 07:56 01/23/24 07:56 01/23/24 07:56
I&O
01/22/24 01/23/24 01/24/24
06:59 06:59 06:59
Intake Total 2844 / 2844 2444 / 2444
Output Total 3000 / 3000 4350 / 4350
Balance -156 / -156 -1906 / -1906
--- NOTE | 2024-01-23 08:59 | W.PN.URO.CBU ---
Today's Communication / Plan
-
npo remove orot 06
Assessment / Plan
-
s/p ureteroscopy/laser litho and stent
readmit with fever
cx's + for enterococcus
clinically- pt looks better
fevers curve improved and wbc normalized
will continue ib[v abs Pt schedued 899 for stent removal and voiding trial
no need for any further gu imaging at this time
will follow
Diagnosis
-
Date of Service: January 23, 2024
-
Patient Diagnosis:
Post Op Day:
Patient Diagnosis:
Post Op Day:
Patient Diagnosis:
s/p ureteroscopy and stent
urinary retention
suspected pyelonephritis
enterococcal uti/bacteremia
Subjective
-
feels baseline
Objective
-
Vital Signs
Temp Pulse Resp BP Pulse Ox
98.3 F 77 18 137/76 96
01/23/24 07:56 01/23/24 07:56 01/23/24 07:56 01/23/24 07:56 01/23/24 07:56
Intake and Output
01/22/24 01/23/24 01/24/24
06:59 06:59 06:59
Intake Total 2844 / 2844 2444 / 2444
Output Total 3000 / 3000 4350 / 4350
Balance -156 / -156 -1906 / -1906
Intake:
Oral fluids 840 / 840 1720 / 1720
IV fluids (Total) 1380 / 1380 200 / 200
IV piggybacks 624 / 624 524 / 524
Output:
Urine, Root 3000 / 3000 4350 / 4350
Laboratory Results
01/23/24 06:19
01/23/24 06:19
Review of Systems
-
: Difficulty Voiding
Physical Exam
-
General - well developed, well nourished, no acute distress
Chest - clear bilaterally
Abdomen - soft, non-tender, positive bowel sounds, no CVAT, no incisional pain or distention
Genitalia - normal
Rectal - normal
Skin - warm & dry with no rash
Neuro - AOx3, no motor deficits
Extremities - no clubbing, no cyanosis, no edema
Incision - clean, dry
Dressing - clean, dry, intact
Care Review
Data Reviewed
Discussed with: Nursing
Total Time Spent with Patient (in minutes): 45 nib did preop conasented
[2024-01-23] MEDS: TYLENOL 1000 MG PO ×3 (09:19→21:27)
[2024-01-23] MEDS: HEPARIN 5000 UNITS SC ×2 (09:19→21:27)
[2024-01-23] MEDS: NOVOLOG FLEXPEN-MODERATE RESISTANCE SC ×2 (09:19→17:09)
[2024-01-23 12:08] LABS: Glucose - Point of Care 165 mg/dl (70-99)
[2024-01-23] MEDS: NOVOLOG FLEXPEN-MODERATE RESISTANCE 1 UNITS SC (12:19)
--- NOTE | 2024-01-23 14:08 | W.PN.ID1 ---
Date of Service
Date of Service: January 23, 2024
Today's Communication
- urology requested we continue ampicillin until - no objection, will continue and then switch to levaquin that evening
- hold levofloxacin for now, will restart after stent removal and continue through 01/31
- follow up with urology, after stent exchange patient is stable for dc from ID perspective
Assessment / Plan
Pyelonephritis due to Enterococcus
Enterococcal Bacteremia due to pyelonephritis
S/p R renal stent
Spinal compression fx
DM2 - controlled
- repeat blood cultures x2 in progress - no growth to date
- source of bacteremia confirmed
- urology requested we continue ampicillin until - no objection, will continue and then switch to levaquin that evening
- hold levofloxacin for now, will restart after stent removal and continue through 01/31
- follow up with urology, after stent exchange patient is stable for dc from ID perspective
Chief Complaint
-: Fever and Bacteremia
Subjective / Review of Systems
afebrile
bp stable
without leukocytosis
cr stable
blood cultures cleared
no complaints
Vital Signs / Physical Exam
Vital Signs
Vital Signs
Temp Pulse Resp BP Pulse Ox
98.3 F 77 18 137/76 96
01/23/24 07:56 01/23/24 07:56 01/23/24 07:56 01/23/24 07:56 01/23/24 08:00
Physical Exam
Constitutional: No Acute Distress
Cardiovascular: Regular Rate and S1/S2; Negative Murmur or Rub
Pulmonary: Clear and Symmetric; Negative Wheezes or Rales
Gastrointestinal: Soft, Non Tender, Non Distended and Normal Bowel Sounds
Genito-Urinary: Negative Suprapubic Tenderness
Skin: Warm and Dry; Negative Rash or Jaundice
Objective Data
Lab Data
Lab Results
01/23/24 06:19
01/23/24 06:19
Estimated Creat Clear > 125 ml/min 01/23/24 06:19
Lactic Acid Cancelled 01/18/24 14:00
Total Bilirubin 0.4 mg/dl (0.2-1.3) 01/21/24 04:33
AST 60 U/L (17-59) H 01/21/24 04:33
ALT 63 U/L (0-50) H 01/21/24 04:33
Alkaline Phosphatase 92 U/L (38-126) 01/21/24 04:33
Most recent labs reviewed.
Micro Results:
01/18/24 10:25 Blood Culture - Final
Blood/Venous No Growth - Final Report
01/19/24 08:48 Blood Culture - Preliminary
Blood/Venous No Growth in 4 days- Final report to follow
01/19/24 08:19 Blood Culture - Preliminary
Blood/Venous No Growth in 4 days- Final report to follow
01/18/24 10:25 Blood Culture - Preliminary
Blood/Venous Enterococcus faecalis
Gram Stain - Preliminary
01/18/24 09:01 Urine Culture - Final
Urine Enterococcus faecalis
[2024-01-23 16:13] VITALS: BP 120/76
[2024-01-23 17:06] LABS: Glucose - Point of Care 127 mg/dl (70-99)
[2024-01-23] MEDS: ASPIR LOW (ENTERIC COATED) 81 MG PO (17:32)
[2024-01-23] MEDS: COMPAZINE 5 MG IV (19:25)
[2024-01-23] MEDS: DILAUDID 1 MG IV (19:25)
[2024-01-23 21:12] LABS: Glucose - Point of Care 152 mg/dl (70-99)
[2024-01-23 23:45] VITALS: BP 144/77
[2024-01-24] MEDS: DILAUDID 1 MG IV ×2 (01:57→05:22)
[2024-01-24] MEDS: COMPAZINE 5 MG IV (01:57)
[2024-01-24] MEDS: AMPICILLIN 108 MG IV (05:22)
[2024-01-24 06:27] LABS: Glucose - Point of Care 185 mg/dl (70-99)
[2024-01-24 07:51] LABS: Blood Urea Nitrogen 13 mg/dl (9-20); Calcium 8.6 mg/dl (8.4-10.2); Carbon Dioxide 26 mmol/L (22-30); Chloride 98 mmol/L (98-107); Estimated Creatinine Clearance > 125 ml/min; Glucose 160 mg/dl (70-99); Hematocrit 39.2 % (39.0-52.0); Mean Corp Hgb Conc. 30.6 g/dL (33.0-37.0); Mean Corpuscular Hgb 19.7 pg (27.0-31.0); Mean Corpuscular Volume 64.3 fL (80.0-94.0); Mean Platelet Volume 10.1 fL (7.4-10.4); Platelet Count 354 10^3/uL (130-400); Potassium 3.9 mmol/L (3.5-5.1); Red Cell Dist. Width 21.4 % (11.5-14.5); Sodium 133 mmol/L (135-145); White Blood Cell Count 13.5 10^3/uL (4.8-10.8); eGFR > 60.00
[2024-01-24] MEDS: TYLENOL PO (07:57)
[2024-01-24 07:58] VITALS: BP 137/69
--- NOTE | 2024-01-24 08:48 | W.PN.HOSP.TC ---
Today's Communication/Plan
-
Continue current management. Discharge planning today.
Assessment / Plan
Assessment / Plan
Physical Exam
General: No acute distress
HEENT: Moist mucous membranes and Atraumatic
Respiratory: Clear and Decreased Breath Sounds; No Wheezes
Cardiac: S1/S2
GI: Soft, Non Tender and Distended
Genito-urinary: Turbid Urine; No Bloody Urine
Musculoskeletal: No Clubbing, No Cyanosis and No Edema
Skin: Warm; No Jaundice
Neuro: AO x 3 and Nonfocal/grossly intact
Psych: Calm and Intact Judgment/Insight
68 years old male presented with fever and was found to have urine tract infection, recent vaccination, lower back pain.
# Sepsis/present on admission, UTI, right pyelonephritis related to recent stent
Combination of tachycardia, leukocytosis, high temperature, rigors, cloudy urine with difficulty urination
No hypotension
Continue IV antibiotics
Urology follow-up appreciated they recommended continue العلي catheter and ureteral stent as well as current antibiotics.
Patient tells me that العلي catheter was placed here in this hospitalization. Will need to check with urology if voiding trial but most likely he will need to go with العلي catheter.
Appreciated ID consult and follow-up--> per ID continue IV ampicillin and transition to Levaquin
Urology reach out to me and they are planning to remove stent and العلي catheter today and recommended to continue IV antibiotics until then
I sent message to ID about above recommendations.
Today on 01/23 ureteral stent has been removed and العلي catheter has been removed. We will wait for him to void spontaneously and check postvoid residuals. If he is doing okay he will go home without العلي catheter, but on the other hand if he
retains urine he may need to have العلي catheter placed back and he will go home with catheter then and urology following and will determine. Either way plan to discharge home today.
# Enterococcus bacteremia on 01/17
c/w IV Abx, IV ampicillin
Reculture and negative so far
Urology reach out to me and they are planning to remove stent and العلي catheter today and recommended to continue IV antibiotics until then. Changed back to oral antibiotics today.
Appreciate ID help
# Severe lower back pain with radiculopathy. CAT Scan showed chronic T12/L1 compression deformities/multilevel degenerative changes of lumbar spine
Fever and UTI are contributing to discomfort
c/w Tylenol [id number], as needed Dilaudid
Continue with PT/OT as tolerated
# Recent pneumonia vaccination with systemic response
Continue supportive care. Tylenol
# History of type 2 diabetes.
Avoid hypoglycemia
HGB A1C 6.7
Diabetic diet
Insulin sliding scale
# Primary hypertension. Avoid hypotension. Monitor blood pressure
#Mild transaminitis. Coming down No abdominal tenderness on examination. Likely secondary to ongoing infection. Will monitor
# Hyponatremia, mild
# DVT prophylaxis, SQ heparin
Anticipated Discharge: Today
Subjective/Interval History
-
Date of Service: January 24, 2024
Patient underwent stent removal today. العلي catheter was removed as well but waiting for postvoid. No nausea vomiting or abdominal pain.
Objective Data
-
Labs:
Laboratory Results
01/24/24
06:26
WBC 13.5 H
Hgb 12.0 L
Hct 39.2
Plt Count 354
Sodium 133 L
Potassium 3.9
Chloride 98
Carbon Dioxide 26
BUN 13
Creatinine 0.6 L
Glucose 160 H
Calcium 8.6
Vital Signs:
Vital Signs
Temp Pulse Resp BP Pulse Ox
98 F 90 16 137/69 93
01/24/24 07:58 01/24/24 07:58 01/24/24 07:58 01/24/24 07:58 01/24/24 07:58
I&O
01/23/24 01/24/2401/24/24
06:59 06:59 06:59
Intake Total 2444 / 2444 1200 / 1200
Output Total 4350 / 4350 3300 / 3300
Balance -1905 / -1905 -2099 / -2099
--- NOTE | 2024-01-24 09:18 | W.PN.URO.CBU ---
Today's Communication / Plan
-
checkpost void residual if over 400cc replace root and call ot ciarra text dr humphreys
Assessment / Plan
-
s/p ureteroscopy/laser litho and stent
readmit with fever
cx's + for enterococcus
root out home whn ok by hispitalit willneed to check if voiding
no need for any further gu imaging at this time
will follow
Diagnosis
-
Date of Service: January 24, 2024
-
Patient Diagnosis:
Post Op Day:
Patient Diagnosis:
Post Op Day:
Patient Diagnosis:
Post Op Day: today
Patient Diagnosis:
s/p ureteroscopy and stent
urinary retention
suspected pyelonephritis
enterococcal uti/bacteremia
Subjective
-
groggy root and stnt out
Objective
-
Vital Signs
Temp Pulse Resp BP Pulse Ox
98 F 90 16 137/69 93
01/24/24 07:58 01/24/24 07:58 01/24/24 07:58 01/24/24 07:58 01/24/24 07:58
Intake and Output
01/23/24 01/24/24 01/25/24
06:59 06:59 06:59
Intake Total 2444 / 2444 1200 / 1200
Output Total 4350 / 4350 3300 / 3300
Balance -1906 / -1906 -2099 / -2099
Intake:
Oral fluids 1720 / 1720 1200 / 1200
IV fluids (Total) 200 / 200
IV piggybacks 524 / 524
Output:
Urine, Root 4350 / 4350 3300 / 3300
Laboratory Results
01/24/24 06:26
01/24/24 06:26
Physical Exam
-
General - well developed, well nourished, no acute distress
Chest - clear bilaterally
Abdomen - soft, non-tender, positive bowel sounds, no CVAT, no incisional pain or distention
Genitalia - normal
Rectal - normal
Skin - warm & dry with no rash
Neuro - AOx3, no motor deficits
Extremities - no clubbing, no cyanosis, no edema
Incision - clean, dry
Dressing - clean, dry, intact
Counseling
-
house diet voiding trial
Care Review
Data Reviewed
Discussed with: Hospitalist and Nursing
Total Time Spent with Patient (in minutes): or today cysto stent removal
[2024-01-24 09:20] VITALS: BP 137/69; BP_SYST 18
[2024-01-24 09:35] VITALS: BP 130/71; BP_SYST 18
[2024-01-24 09:50] VITALS: BP 126/67; BP_SYST 18
[2024-01-24 10:18] VITALS: BP 114/61
[2024-01-24] MEDS: LEVAQUIN 750 MG PO (10:20)
[2024-01-24] MEDS: HEPARIN 5000 UNITS SC (10:21)
[2024-01-24 11:10] LABS: Glucose - Point of Care 142 mg/dl (70-99)
--- NOTE | 2024-01-24 12:44 | W.DCSUMMARY ---
Discharge Summary
Discharge Data
Date of Admission: 01/18/24
Date of Discharge: 01/24/24
-
Pending Results: No
Hospital Course
Patient is 68 years old male with history of diabetes mellitus, nephrolithiasis, presented to the hospital with fever. Patient had recent right ureteral stone status post right ureteroscopy extraction and double-J stent placement and treated with
oral antibiotics. Patient was found to have an active infection and enterococcal bacteremia due to pyelonephritis and recent right renal stent. Urology consulted. ID consulted as well. Patient was treated with IV antibiotics. He had a العلي
catheter placed. Follow-up blood cultures cleared on 01/17. Urology took him to the OR on 01/23 and they did a cystoscopy and stent removal. العلي catheter was removed at the time of surgery as well. Patient did well rest of hospital stay. He
remained afebrile. Urology cleared him for discharge. ID cleared him for discharge. Patient is going to be discharged in stable condition today.
Discharge duration: 35 minutes
Discharge Plan
-
Patient Disposition: Home with Home Care
Discharge Diagnosis/Procedures: Sepsis due to urinary tract infection. Enterococcus bacteremia. Chronic back pain. Diabetes mellitus type 2
Diet: Low Cholesterol and Diabetic, Carb Controlled
Activity: As tolerated
Driving Restrictions: As prior to admission
Blood Work: Please PCP to order CBC, BMP within 1 week
Referrals:
Haseeb Vincent MD [Family Provider] - in less than 1 week
Suhas Griffin Jr., MD [Active] - in one to two weeks
Prescriptions:
New
levofloxacin 750 mg Tablet
750 mg PO DAILY 8 Days Qty: 8 0RF
Continued
atorvastatin 40 MG tablet
40 mg PO DAILY
ramipril 10 MG capsule
10 mg PO DAILY
aspirin 81 MG tablet,delayed release (DR/EC)
81 mg PO DAILY
multivitamin Tablet
1 tab PO HS
tamsulosin 0.4 mg Capsule
0.4 mg PO DAILY
metformin 1,000 mg Tablet
1,000 mg PO BIDWMEAL
albuterol 90 mcg/actuation Aerosol
INHALATION
Discontinued
hydrochlorothiazide 25 mg Tablet
25 mg PO DAILY
naproxen sodium [Aleve] 220 mg Tablet
220 mg PO BID
Discharge Orders:
Discharge Patient (As Directed); Ordered 01/24/24
Ordered By: Robert Sue
Discharge Date and Time
Discharge Date/Time: 01/24/24 14:00
Print Language: ROMANIAN
--- NOTE | 2024-01-24 13:57 | PTCARENOTE ---
Pt PVRs as followed
urinated 250 scanned for 296
urinated 150 scanned for 84
Some bleeding noted, blood tinged urine, aware, instructed to call urology if worsening bleeding/ trouble urinating. Pt verbalized understanding.
Discharge instructions reviewed with pt and .
--- NOTE | 2024-01-24 14:13 | CM ---
entered order for discharge.
IMM reviewed signed on chart.
will drive him home.
Rachel from [facility] aware of dc.
He cares for his disabled son at home also.
PLAN Home with [facility] [phone]
== END 2024-01-24 14:00 | disposition home health service (06) | DRG 698 ==
LOC: 4 EAST ACU 10:23
PROVIDERS: ADMITTING PHYSICIAN Internal Medicine; ATTENDING PHYSICIAN Hospitalist; CONSULT PHYSICIAN Student in an Organized Health Care Education/Training Program; EMERGENCY PHYSICIAN Emergency Medicine; FAMILY PHYSICIAN Internal Medicine; OTHER PHYSICIAN Specialist
PROC: 0T9B70Z Drainage of Bladder with Drainage Device, Via Natural or Artificial Opening (ICD-10-PCS; 2024-01-18)
PROC: 0TP98DZ Removal of Intraluminal Device from Ureter, Via Natural or Artificial Opening Endoscopic (ICD-10-PCS; 2024-01-24)
DX: T83.592A Infection and inflammatory reaction due to indwelling ureteral stent, initial encounter (principal); A41.81 Sepsis due to Enterococcus; M48.55XA Collapsed vertebra, not elsewhere classified, thoracolumbar region, initial encounter for fracture; E87.1 Hypo-osmolality and hyponatremia; N12 Tubulo-interstitial nephritis, not specified as acute or chronic; R19.7 Diarrhea, unspecified; R11.2 Nausea with vomiting, unspecified; K42.9 Umbilical hernia without obstruction or gangrene; E78.00 Pure hypercholesterolemia, unspecified; M54.10 Radiculopathy, site unspecified; G89.29 Other chronic pain; M47.816 Spondylosis without myelopathy or radiculopathy, lumbar region; Y83.8 Other surgical procedures as the cause of abnormal reaction of the patient, or of later complication, without mention of misadventure at the time of the procedure; Y92.9 Unspecified place or not applicable; E11.9 Type 2 diabetes mellitus without complications; R74.01 Elevation of levels of liver transaminase levels; I10 Essential (primary) hypertension; M17.0 Bilateral primary osteoarthritis of knee; Z96.653 Presence of artificial knee joint, bilateral; Z87.442 Personal history of urinary calculi; Z79.82 Long term (current) use of aspirin; Z79.84 Long term (current) use of oral hypoglycemic drugs
CPT/HCPCS: 72100; 72131; 73502; 80048; 80053; 81003; 81015; 82962; 83036; 83605; 83690; 85025; 85027; 87040; 87077; 87086; 87186; 87205; 93005; 94640; 96361; 96374; 96375; 97116; 97166; 97530; 97535; 99285

== ENCOUNTER 2024-01-28 20:11 | Inpatient (IN) | payer MEDICARE, OTHER, SELFPAY ==
[2024-01-28 17:02] VITALS: BP 142/93
--- NOTE | 2024-01-28 17:35 | ED.GENMED ---
History of Present Illness
General
Chief Complaint: Abdominal Symptoms
Source: patient and spouse
Exam Limitations: none
Time Seen by Provider: 01/28/24 17:23
Travel History
Have you had any contact with someone who has COVID-19?: No
Do you have any symptoms of coronavirus? Fever > 100 degrees, chills, cough, shortness of breath, sore throat, loss of taste or smell, muscle aches, or headache?: No
History of Present Illness
History of Present Illness:
68-year-old male presents with nausea and lower abdominal pain. Symptoms started 2 days ago. Patient released from the hospital 4 days ago after an admission for enterococcal bacteremia/pyelonephritis. Patient also had a catheter in at that time.
Complaining of frequent diarrhea watery in nature. No blood or mucus. Lower abdominal pain nausea general fatigue and weakness.
Past History
Past History
ED Past Medical History: HTN, Hypercholesterolemia, Other (DJD of the knees), Other (Kidney stone) and Other (Polycycthemia)
ED Past Surgical History: Orthopedic (Bilateral knees), Urological (Lithotripsy) and Other (Umbilical hernia)
Social History
Tobacco: Non-smoker
Alcohol: Occasional
Drug: None
Personal:
Living: with family
Employment: Employed
Family History
Family History: Other (Noncontributory)
Review of Systems
Review of Systems
All Other Systems: Not applicable
Constitutional: Denies fever or chills
Respiratory: Reports no symptoms
Cardiac: Reports no symptoms
Phy Exam
Physical Exam
Physical Exam:
GENERAL: Alert and oriented. Nontoxic but does appear mildly uncomfortable
EYE: Orbits normal.
NECK: Supple, no significant adenopathy.
ENT: Pharynx without erythema
CARDIAC: Borderline tachycardic and regular no murmur
LUNGS: Clear breath sounds,normal
ABDOMEN: Soft, mild vague nonlocalizing lower abdominal tenderness. Slightly more left lower quadrant pubic. No hernia or masses. No rebound or guarding. No CVA tenderness.
NEUROLOGICAL: Alert and oriented , grossly non-focal
SKIN: Warm and dry, no rash or lesion, no discoloration, skin intact.
MUSCULOSKELETAL: No edema,no deformity.Good color
PSYCH: Normal and appropriate interaction.
Course
Orders/Labs/Results
Orders:
Orders
01/28/24 Dinner
Regular
01/28/24 17:33
Cardiac Monitoring- Treatment ONCE
IV Insert/Care/Rem.- Treatment PRN
0.9% Sodium Chloride 1000 ml [Nss] 1,000 ml IV BOLUS
Pulse Ox/cont/shift [RESP] Urgent
Quantity: 1
01/28/24 17:34
Electrocardiogram (*1) Urgent
Reason for Study: Other
Other Reason for Exam: sepsis
EKG- Treatment ONCE
01/28/24 17:35
CT Abd/Pel (IV only)-DH only Urgent
Comment:
Reason For Exam: Lower abdominal pain x [address]
STOOL [C difficile Antigen & Toxins] Urgent
LAVERNE Source: Feces/Stool
Specimen Description:
Stool Culture Urgent
LAVERNE Source: Feces/Stool
Specimen Description:
01/28/24 17:47
Ondansetron Injectable [Zofran] 4 mg IV NOW STA
01/28/24 17:50
Complete Blood Count/With Diff Urgent
Comprehensive Metabolic Panel Urgent
Lactic Acid Q4H
Comment: CANCEL 2nd LACTIC ACID IF 1st LACTIC ACID IS LESS THAN 2
Blood Culture Q30M
LAVERNE Source: Blood/Venous
Specimen Description:
Blood Culture Q30M
LAVERNE Source: Blood/Venous
Specimen Description:
01/28/24 18:16
Ketorolac [Toradol] 15 mg IV NOW STA
01/28/24 19:22
Urinalysis Reflex To Culture Urgent
Date Specimen was Collected: 01/28/24
Time Specimen was Collected: 19:09
Urine Microscopic Reflex Cult Urgent
Urine Culture Urgent
LAVERNE Source: U
Specimen Description:
Date Specimen was Collected: 01/28/24
Time Specimen was Collected: 19:09
01/28/24 19:43
Piperacillin/Tazo 3.375 Gram [Zosyn] 3.375 gram in 50 ml IV NOW
01/28/24 20:01
Admit/Transfer Patient As Directed
Co-Sign Provider:
Level of Care: Inpatient admission
Assign to:: Medical/Surgical
Physician / Group: lalita
Diagnosis: antibiotic diarrhea vs partially treated uti
Reason for Hospitalization: antibiotic diarrhea vs partially treated uti
Expected length of stay greater than two midnights?: Yes
ELOS- Estimated Length of Stay in days: 2
I certify the patient meets the requirements for IP care: Yes
Code Status As Directed
Resuscitation Status: Full Code
01/28/24 21:01
0.9% Sodium Chloride 1000 ml [Nss] 1,000 ml IV 100 mls/hr
Acetaminophen [Tylenol] 650 mg PO Q4HPRN PRN
Dextrose 50%-Water [Dextrose 50% Syringe] 12.5 grams IV [id number] PRN
Glucagon [GlucaGen] 1 mg IM PRN PRN
HYDROmorphone [Dilaudid] 0.5 mg IV Q4HPRN PRN
Ondansetron Injectable [Zofran] 4 mg IV Q6HPRN PRN
bismuth subsalicylate [Pepto-Bismol] 524 mg PO DAILYPRN PRN
01/28/24 21:01
UROLOGY CONSULT Routine
Consulting Provider: Kelvin Louie
Was physician already notified: Yes
Activity As Directed
Activity Level: As Tolerated
Bedside Glucose Monitoring As Directed
Frequency: AC&HS
Additional Instructions:: Change to q6h if pt on TPN, tube feeding or not eating
Vital Signs As Directed
Frequency: Per unit guidelines
DX Deep Vein Thrombosis Video Routine
01/28/24 22:00
Cefepime HCl [Maxipime] 2,000 mg IV Q12H
VANCOMYCIN Pharmacy to Dose [VANCOCIN Pharmacy to Dose] 1 each Pharmacy To Prepare [Call Pharmacy To Prepare] 0 ml IV PER PROTOCOL
01/29/24 06:00
Complete Blood Count/With Diff IN AM
Comprehensive Metabolic Panel IN AM
Glycohemoglobin (HgbA1c) IN AM
01/29/24 07:30
Insulin Aspart Corrective Low [Novolog Flexpen-Low Resistance] See Protocol SC AC
01/29/24 08:00
Aspirin Low Dose EC [Aspir Low (Enteric Coated)] 81 mg PO DAILY
Heparin 5,000 units SC Q12
Hydrochlorothiazide [Oretic] 25 mg PO DAILY
Ramipril [Altace] 10 mg PO DAILY
Tamsulosin [Flomax] 0.4 mg PO DAILY
01/29/24 18:00
Atorvastatin [Lipitor] 40 mg PO QPM
Abnormal Lab Results
01/28/24 01/28/24
17:50 19:22
WBC 12.1 H 10^3/uL
(4.8-10.8)
RBC 6.49 H 10^6/uL
(4.70-6.10)
MCV 62.9 L fL
(80.0-94.0)
MCH 20.0 L pg
(27.0-31.0)
MCHC 31.9 L g/dL
(33.0-37.0)
RDW 23.0 H %
(11.5-14.5)
Plt Count 573 H D 10^3/uL
(130-400)
Abs Immat Gran (auto) 0.3 H 10^3/uL
(0-0.05)
Absolute Neuts (auto) 9.3 H 10^3/uL
(1.4-6.5)
Absolute Monos (auto) 1.0 H 10^3/uL
(0.1-0.6)
Immature Gran % 2.5 H %
(0-0.5)
Neutrophils % 77.1 H %
(42.2-75.2)
Lymphocytes % 11.9 L %
(20.5-51.1)
Sodium 133 L mmol/L
(135-145)
Chloride 96 L mmol/L
(98-107)
BUN 23 H mg/dl
(9-20)
Glucose 143 H mg/dl
(70-99)
Calcium 10.7 H mg/dl
(8.4-10.2)
Leukocyte Esterase Rfl Trace A
(Negative)
Urine RBC 3-6 A /HPF
(0-2)
Urine WBC (Reflex) 16-20 A /HPF
(0-5)
Urine Bacteria (Reflex) Moderate A
(Negative)
01/28/24 17:50
01/28/24 17:50
Vital Signs
Initial and Last Documented VS:
Initial Vital Signs
Temp Pulse Resp BP Pulse Ox
98.6 F 104 20 142/93 96
01/28/24 17:02 01/28/24 17:02 01/28/24 17:02 01/28/24 17:02 01/28/24 17:02
Last Documented Vital Signs
Temp Pulse Resp BP Pulse Ox
98.6 F 89 23 134/81 95
01/28/24 17:02 01/28/24 20:30 01/28/24 20:30 01/28/24 20:00 01/28/24 20:30
MDM/Problems Addressed
Differential Diagnosis Includes:
Patient with a large differential. C. difficile colitis would be high on the list. Patient is describing colitis like symptoms. Recurrent neurologic infection. Urologic perforation although unlikely. Workup in progress.
*Radiology
Radiology exam reviewed: radiology read reviewed (2 to 3 mm obstructing stone right UVJ with hydronephrosis.)
*Pulse Oximetry
Patient hypoxic: no
*EKG
Interpreted by ED Provider?: Yes
Interpretation: abnormal
Comparison EKG: changes noted
Rate: normal
Rhythm: sinus
[place]: normal axis
Interval: normal interval
QRS Pattern: right bundle branch block
Ischemia: no ischemia
*Critical Care Note
Total Time (30-74mins, 75-104mins- exclusive of procedures): Not Applicable
Data Reviewed
Review of Other/Old Records Reveals: Labs, Records, Radiology Studies, Operative Reports, Testing and Discharge Summary
Update Note
Update Note:
QT interval 490 on EKG however T wave in appearance okay. Feel 1 dose of Zofran will be okay
With obstructing kidney stone, recent bacteremia and pyelonephritis patient warrants in place and management. Referred to hospitalist and urology
ED Attending Note
-
Portions of this chart may have been created with voice recognition software.� Occasional wrong word or��sound alike� substitutions may have occurred due to the inherent limitations of voice recognition software.
Discharge Plan
Departure
Patient Disposition: Admit
Date of Disposition: 01/28/24
Time of Disposition: 19:39
Presentation/result/management discussed w/ accepting MD/DO: Urology
Discharge Problem:
Obstructing right kidney stone, Recent pyelonephritis/bacteremia
Interventions
Interventions:
*Risk Screen - Suicide Last Done: 01/28/24 17:02
*General Assessment Last Done: 01/28/24 17:02
*Neglect/Abuse Screening Last Done: 01/28/24 17:02
RN-Jysstq-Lojdzbrqae Assessment Last Done: 01/28/24 19:12
[2024-01-28] MEDS: NSS 1000 IV ×2 (17:51→21:54)
[2024-01-28 17:55] VITALS: BP 124/78; BMI 28.6
[2024-01-28 17:59] LABS: % Basophils 0.3 % (0-2); % Eosinophils 0.3 % (0-6); % Immature Granulocytes 2.5 % (0-0.5); % Lymphocytes 11.9 % (20.5-51.1); % Monocytes 7.9 % (1.7-9.3); % Neutrophils 77.1 % (42.2-75.2); Absolute Immature Granulocytes 0.3 10^3/uL (0-0.05); Absolute Lymphocytes 1.4 10^3/uL (1.2-3.4); Absolute Neutrophils 9.3 10^3/uL (1.4-6.5); Hematocrit 40.8 % (39.0-52.0); Mean Corp Hgb Conc. 31.9 g/dL (33.0-37.0); Mean Corpuscular Volume 62.9 fL (80.0-94.0); Mean Platelet Volume 9.2 fL (7.4-10.4); Nucleated Red Blood Cells % 0 % (-); Platelet Count 573 10^3/uL (130-400); Red Blood Cell Count 6.49 10^6/uL (4.70-6.10); White Blood Cell Count 12.1 10^3/uL (4.8-10.8)
[2024-01-28] MEDS: ZOFRAN 4 MG IV (18:00)
[2024-01-28 18:14] LABS: ALT (SGPT) 46 U/L (0-50); AST (SGOT) 32 U/L (17-59); Albumin 3.8 g/dl (3.5-5.0); Alkaline Phosphatase 111 U/L (38-126); Blood Urea Nitrogen 23 mg/dl (9-20); Calcium 10.7 mg/dl (8.4-10.2); Carbon Dioxide 26 mmol/L (22-30); Chloride 96 mmol/L (98-107); Estimated Creatinine Clearance 119 ml/min; Glucose 143 mg/dl (70-99); Lactic Acid 1.3 mmol/L (0.7-2.0); Potassium 4.6 mmol/L (3.5-5.1); Sodium 133 mmol/L (135-145); Total Protein 6.4 g/dl (6.3-8.2); eGFR > 60.00
[2024-01-28 18:23] LABS: Anisocytosis 1+; Hypochromasia 1+; Normal RBC Morphology No; Ovalocytes 1+; Polychromasia 1+
[2024-01-28 18:24] LABS: Acanthocytes 1+
[2024-01-28] MEDS: TORADOL 15 MG IV (19:05)
[2024-01-28 19:30] LABS: Urine Albumin Negative (Neg - Trace); Urine Bilirubin Negative (Negative); Urine Character Clear (Clear); Urine Color Yellow; Urine Glucose Negative (Negative); Urine Ketone Negative (Negative); Urine Leukocyte Trace (Negative); Urine Nitrite Negative (Negative); Urine Occult Blood Negative (Negative); Urine Urobilinogen Negative (Neg - 1+)
[2024-01-28 19:39] LABS: Urine Bacteria Moderate (Negative); Urine White Cell 16-20 /HPF (0-5)
[2024-01-28 20:00] VITALS: BP 134/81
--- NOTE | 2024-01-28 20:08 | HPS.HSE ---
Family Physician
-
Family Physician: Haseeb Vincent
Chief Complaint
-
abdominal pain
History of Present Illness
68-year-old male past medical history of diabetes, nephrolithiasis,, recent Enterococcus bacteremia on 01/17, hypertension, hyponatremia, hyperlipidemia presenting for severe abdominal pain and nausea which started 2 days ago. Abdominal pain is
located across the lower abdomen. Pain is not located in the right flank and unlike pyelonephritis related pain like he had previously. He has been having multiple episodes of daily diarrhea with mucus. He denies any blood or mucus in the
diarrhea. He denies any burning with urination, increased urinary frequency, blood in the urine or other symptoms of urinary tract function. He denies any fevers or chills.
Patient was recently admitted from 01/17 to 01/23 for fever. Patient previously had recent right ureteral stone status post right ureteroscopy extraction double-J stent placement. He was found to have Enterococcus bacteremia secondary to
pyelonephritis in the setting of the right renal stent. Patient العلي catheter placed. Patient went to the operating room and had cystoscopy and stent removal. العلي catheter removed at time of surgery.
Medical History
Past Medical History
Past Medical History: Reports Other ( diabetes, nephrolithiasis,, recent Enterococcus bacteremia on 01/17, hypertension, hyponatremia, hyperlipidemia)
Past Surgical History: Reports None
Social History
Tobacco: Non-smoker
Alcohol: None
Drug: None
Family History
Family History: Not pertinent
Allergies / Home Medications
Allergies reflects when Allergies were last updated in [employer].
Home Medications with original date entered in [employer]
Allergy/Medication List:
Allergies
Allergy/AdvReac Type Severity Reaction Status Date / Time
No Known Allergies Allergy Verified 01/28/24 17:02
Home Medications
atorvastatin 40 mg tablet 40 mg PO QPM High cholesterol 04/02/17
ramipril 10 mg capsule 10 mg PO DAILY Blood pressure 04/02/17
aspirin 81 mg tablet,delayed release 81 mg PO DAILY Blood clot prevention/tx 05/23/20
multivitamin 1 tab PO HS Supplement 01/04/24
metformin 1,000 mg tablet 1,000 mg PO BID Diabetes 01/18/24
tamsulosin 0.4 mg capsule 0.4 mg PO DAILY Urinary Issue 01/18/24
levofloxacin 750 mg tablet 750 mg PO DAILY 8 days #8 tabs 01/24/24
acetaminophen 325 mg tablet (Tylenol) 650 mg PO Q4HPRN PRN mild pain 01/28/24
bismuth subsalicylate 262 mg tablet (Pepto-Bismol) 524 mg PO DAILYPRN PRN gerd 01/28/24
hydrochlorothiazide 25 mg tablet 25 mg PO DAILY 01/28/24
Review of Systems
-
History Source: Patient
A 12 point ROS was completed and negative except as noted: Yes
Constitutional: Reports No Symptoms
EENT: Reports No Symptoms
Respiratory: Reports No Symptoms
Cardiac: Reports No Symptoms
Abdomen/GI: Reports See HPI
: Reports See HPI
Musculoskeletal: Reports No Symptoms
Skin: Reports No Symptoms
Neurological: Reports No Symptoms
Endocrine: Reports No Symptoms
Hematologic/Lymphatic: Reports No Symptoms
Psych: Reports No Symptoms
Physical Exam
Vital Signs
Vital Signs
Temp Pulse Resp BP Pulse Ox
98.6 F 74 19 124/78 95
01/28/24 17:02 01/28/24 19:08 01/28/24 19:08 01/28/24 17:55 01/28/24 19:08
Physical Exam
General: Well Developed, Well Nourished and No Apparent Distress
HEENT: NormoCephalic, Moist mucous membranes and Atraumatic
Respiratory: Clear
Cardiac: S1/S2 and Regular Rhythm; No Murmur or Rub
GI: Soft, Non Distended, Normal Bowel Sounds and Tender; No Organomegaly
Rectal: Deferred by Provider
Musculoskeletal: No Clubbing, No Cyanosis and No Edema
Skin: No Rash
Neuro: Nonfocal/grossly intact
Laboratory Results
-
01/28/24 17:50
01/28/24 17:50
Laboratory Results
Lactic Acid 1.3 mmol/L (0.7-2.0) 01/28/24 17:50
Total Bilirubin 1.0 mg/dl (0.2-1.3) 01/28/24 17:50
AST 32 U/L (17-59) 01/28/24 17:50
ALT 46 U/L (0-50) 01/28/24 17:50
Alkaline Phosphatase 111 U/L (38-126) 01/28/24 17:50
Data Reviewed
-
Lab Data: Labs Reviewed by me
Old Records: Reviewed
Impression/Plan
-
IMPRESSION:
PLAN:
# Severe abdominal pain possibly secondary to antibiotic associated diarrhea versus C. difficile colitis versus persistent/partially treated UTI
-Predominant symptom is abdominal pain and diarrhea appears to be more likely related to diarrhea/colitis
-See individually below
# Antibiotic associated diarrhea versus C. difficile
-IV fluids
-Check stool culture, C. difficile
# Possible persistent/partially treated UTI
# Recent Enterococcus bacteremia associated with right pyelonephritis related to recent stent status post antibiotics and stent removal
-Urinalysis appears improved, still showing 16-20 WBC
-Check urine culture, blood cultures
-CT abdomen pelvis shows 2 to 3 mm calculus at the right ureterovesicular junction with minimal right hydroureteronephrosis
-Switch Levaquin to vancomycin/cefepime
-ID consulted
# 2 to 3 mm calculus at the right uteropelvic junction with minimal right hydroureteronephrosis
-IV fluids
-Urology consulted
Type 2 diabetes
-Hold metformin
-insulin sliding scale
Essential hypertension
-Continue hydrochlorothiazide, ramipril
-Continue prophylactic aspirin
Hyperlipidemia
-Continue statin
Arthritis
Full code
DVT prophylaxis�heparin
Regular diet
[2024-01-28] MEDS: ZOSYN 50 IV (20:26)
[2024-01-28 21:00] VITALS: BP 152/75; BMI 28.0
[2024-01-28 21:33] LABS: Glucose - Point of Care 128 mg/dl (70-99)
--- NOTE | 2024-01-28 21:36 | PHA.VAN.IN ---
Assessment
- Assessment
Renal Function: Appears similar to baseline
Maximum Temperature: 98.2
Minimum Temperature: 98.2
Concomitant Antimicrobials: CEFEPIME 2G Q12H
- Previous Dosing Experience
Previous Regimen: 1250 MG Q12H
Date of Regimen: 01.18.24
Patient's SCR is: Decreased compared to previous dosing experience
Patient's weight is: Decreased compared to previous dosing experience
AUC Dosing Plan
- Dosing Variables
Dosing Weight (kg): 101.6 KG
Dosing CrCl (ml/min): 119 ML/MIN
Vd coefficient (L/kg): 0.7
- Empiric Dosing
Initial / Loading Dose: 2000 MG X 1
Maintenance Regimen: 1500 MG Q12H
Estimated AUC (mcg*h/mL): 441
Estimated Peak (mcg*h/mL): 29.7
Estimated Trough (mcg/ml): 10.1
Estimated Half Life (H): 6.7
- Monitoring
No levels ordered at this time: consider ordering levels in the next few days
Pharmacokinetics Vancomycin I
- -
Patient Age: 68
Patient Sex: Male
Vancomycin Day #: 1
Indication: Genito-Urinary Tract
Requesting Provider: DR. ELIZONDO
Pertinent Antimicrobial Allergies:
NKDA
Height / Weight:
Height 6 ft 3 in
Actual Weight 101.605 kg
IBW in k.5 KG
Adjusted BW in k.3 KG
- Vital Signs / Lab Results
Temp Pulse Resp BP Pulse Ox
98.2 F 80 18 152/75 96
01/28/24 21:00 01/28/24 21:00 01/28/24 21:00 01/28/24 21:00 01/28/24 21:00
Lab Results - Hematology
01/28/24
17:50
WBC 12.1 H
Lab Results - Chemistry
01/28/24
17:50
BUN 23 H
Creatinine 0.7
Estimated Creat Clear 119
Albumin 3.8
01/28/24 01/28/24
17:50 21:45
Lactic Acid 1.3 Cancelled
Lab Results - Urine
01/28/24
19:22
Urine Nitrite (Reflex) Negative
Leukocyte Esterase Rfl Trace A
Urine WBC (Reflex) 16-20 A
Ur Squamous Epith Cells 3-5
Urine Bacteria (Reflex) Moderate A
[2024-01-28] MEDS: VANCOCIN 540 MG IV (21:55)
[2024-01-28 23:10] VITALS: BP 131/68
[2024-01-28] MEDS: MAXIPIME 2000 MG IV (23:59)
[2024-01-28] MEDS: STERILE WATER FOR INJECTION 10 ML IV (23:59)
--- NOTE | 2024-01-29 00:53 | PTCARENOTE ---
2330-patient admitted to 321. Oriented to room and floor routines, inst production painter huerta and call huerta within reach. Reviewed POC with patient. admissions assessment completed. All questions addressed. patient verb understanding.
[2024-01-29] MEDS: VANCOCIN 300 ML IV (05:14)
[2024-01-29] MEDS: VANCOCIN 300 MG IV (05:14)
[2024-01-29 06:27] LABS: % Basophils 0.8 % (0-2); % Immature Granulocytes 2.8 % (0-0.5); % Lymphocytes 11.9 % (20.5-51.1); % Monocytes 8.9 % (1.7-9.3); % Neutrophils 74.6 % (42.2-75.2); Absolute Basophils 0.1 10^3/uL (0-0.2); Absolute Eosinophils 0.1 10^3/uL (0-0.7); Absolute Immature Granulocytes 0.3 10^3/uL (0-0.05); Absolute Lymphocytes 1.4 10^3/uL (1.2-3.4); Absolute Neutrophils 8.6 10^3/uL (1.4-6.5); Hemoglobin 11.4 g/dL (13.0-18.0); Mean Corp Hgb Conc. 30.8 g/dL (33.0-37.0); Mean Corpuscular Hgb 20.1 pg (27.0-31.0); Mean Corpuscular Volume 65.3 fL (80.0-94.0); Mean Platelet Volume 9.1 fL (7.4-10.4); Nucleated Red Blood Cells % 0 % (-); Platelet Count 463 10^3/uL (130-400); Red Blood Cell Count 5.67 10^6/uL (4.70-6.10); Red Cell Dist. Width 22.2 % (11.5-14.5); White Blood Cell Count 11.6 10^3/uL (4.8-10.8)
[2024-01-29 07:06] VITALS: BP 140/73
[2024-01-29 07:08] LABS: ALT (SGPT) 40 U/L (0-50); AST (SGOT) 28 U/L (17-59); Alkaline Phosphatase 86 U/L (38-126); Blood Urea Nitrogen 20 mg/dl (9-20); Carbon Dioxide 27 mmol/L (22-30); Chloride 100 mmol/L (98-107); Estimated Creatinine Clearance 119 ml/min; Glucose 117 mg/dl (70-99); Potassium 4.4 mmol/L (3.5-5.1); Sodium 135 mmol/L (135-145); Total Bilirubin 0.7 mg/dl (0.2-1.3); Total Protein 5.4 g/dl (6.3-8.2); eGFR > 60.00
[2024-01-29 07:20] VITALS: BP 142/73
[2024-01-29 07:49] LABS: Glucose - Point of Care 135 mg/dl (70-99)
[2024-01-29] MEDS: NSS 1000 IV ×2 (07:59→17:36)
[2024-01-29] MEDS: FLOMAX 0.400000000000000022 MG PO (08:03)
[2024-01-29] MEDS: HEPARIN 5000 UNITS SC ×2 (08:03→20:06)
[2024-01-29] MEDS: ALTACE 10 MG PO (08:03)
[2024-01-29] MEDS: ASPIR LOW (ENTERIC COATED) 81 MG PO (08:03)
[2024-01-29] MEDS: ORETIC 25 MG PO (08:03)
[2024-01-29] MEDS: NOVOLOG FLEXPEN-LOW RESISTANCE SC ×2 (08:04→17:25)
--- NOTE | 2024-01-29 08:32 | PHA.VAN.FU ---
Vancomycin Assessment / Plan
- Assessment
Renal Function: Stable
WBC's are: Stable
In the past 24 hrs, patient has been: Afebrile
Concomitant Antimicrobials: cefepime
- Dosing Plan
Continue: Vanc 1500mg Q12H
- Monitoring Plan
No level(s) ordered at this time: consider levels in next few days
- Follow Up
Pharmacy will continue to follow.
Vancomycin Follow UP
- -
Patient Age: 68
Patient Sex: Male
Vancomycin Day #: 2
Indication: Genito-Urinary Tract
Requesting Provider: Dr. Parisi
Pertinent Antimicrobial Allergies:
NKDA
Height / Weight:
Height 6 ft 3 in
Actual Weight 101.605 kg
Pertinent Past Medical History: DM 2
- Vital Signs / Lab Results
Temp Pulse Resp BP Pulse Ox
98.1 F 75 16 142/73 95
01/29/24 07:20 01/29/24 08:03 01/29/24 07:20 01/29/24 08:03 01/29/24 07:20
Lab Results - Hematology
01/28/24 01/29/24
17:50 06:12
WBC 12.1 H 11.6 H
Lab Results - Chemistry
01/28/24 01/29/24
17:50 06:12
BUN 23 H 20
Creatinine 0.7 0.7
Estimated Creat Clear 119 119
Albumin 3.8 3.0 L
01/28/24 01/28/24
17:50 21:45
Lactic Acid 1.3 Cancelled
Lab Results - Urine
01/28/24
19:22
Urine Nitrite (Reflex) Negative
Leukocyte Esterase Rfl Trace A
Ur Squamous Epith Cells 3-5
--- NOTE | 2024-01-29 10:56 | CON.ID ---
Consultation
-
Date/Time Consultation Requested: 01/28/24 22:06
Date/Time Consultation Performed: 01/29/24 12:33
Requesting Provider: Dr Parisi
Performing Provider: Dr Pace
Reason for Consultation: persistent uti vs cdif/antibiotic dirrhea
Chief Complaint / Past History
Chief Complaint
abrupt onset of severe abdominal pain
History of Present Illness
Mr Sanon is a 68 year old male with history of right ureteral stone status post right ureteroscopy, extraction & double-J stent placement by Dr. Ybarra on 01/09 complicated by UTI and enterococcal bacteremia. The stent was removed 01/23. He was
initially on ampicillin with plans to complete a course of levofloxacin through 01/31. Then 01/27 he returned for severe abdominal pain, diarrhea with mucous and nausea. The pain is in the lower abdomen. No: burning with urination, urinary
frequency, blood in the urine, fevers or chills.
Since arrival here no recorded fevers, bp stable, HR normal, WBC 12 on arrival and today 11.6, hgb 11.4, plt 463, L shift was noted on arrival and now resolved, cr 0.7, lactiac acid 1.3, t bili 0.7, ast 28, alt 40, alk phos 86, UA 16-20 wbc/hpf,
moderate bacteria, CT a/p with IV contrast only: Approximate 2-3 mm calculus at the right ureterovesical junction with minimal right hydroureteronephrosis. Querry about recent UTI which was indeed confirmed as was recent cystoscopy. Urine culture
is pending, blood cultures x2 in progress. C difficile testing ordered and patient has not produced a sample until this afternoon. Currently on vancomycin and cefepime
Past History
Additional Past Medical History:
hypertension, hyponatremia, hyperlipidemia
Past Surgical History: None
Allergy History:
No Known Allergies Allergy (Verified 01/28/24 17:02)
Medications Reviewed: Yes
Social History
Tobacco: Non-Smoker
Alcohol: None
Drug: None
Family History
Family History: Not Pertinent
Review of Systems
Review of Systems
General: Negative Fever or Chills
All systems: All other systems were reviewed and were negative
Vital Signs
Temp Pulse Resp BP Pulse Ox
98.1 F 75 16 142/73 95
01/29/24 07:20 01/29/24 08:03 01/29/24 07:20 01/29/24 08:03 01/29/24 09:05
Physical Exam
Physical Exam
Constitutional: No Acute Distress
Cardiovascular: Regular Rate and S1/S2; Negative Murmur or Rub
Pulmonary: Clear and Symmetric; Negative Wheezes, Rales or Rhonchi
Gastrointestinal: Soft, Tender (mild, bilateral lower quadrants), Non Distended, Normal Bowel Sounds and Other (increased bowel sounds)
Skin: Warm and Dry; Negative Rash or Jaundice
Lab / Diagnostic Study Results
01/29/24 06:12
01/29/24 06:12
Abs Immat Gran (auto) 0.3 10^3/uL (0-0.05) H 01/29/24 06:12
Absolute Neuts (auto) 8.6 10^3/uL (1.4-6.5) H 01/29/24 06:12
Absolute Lymphs (auto) 1.4 10^3/uL (1.2-3.4) 01/29/24 06:12
Absolute Monos (auto) 1.0 10^3/uL (0.1-0.6) H 01/29/24 06:12
Absolute Basos (auto) 0.1 10^3/uL (0-0.2) 01/29/24 06:12
Immature Gran % 2.8 % (0-0.5) H 01/29/24 06:12
Neutrophils % 74.6 % (42.2-75.2) 01/29/24 06:12
Lymphocytes % 11.9 % (20.5-51.1) L 01/29/24 06:12
Monocytes % 8.9 % (1.7-9.3) 01/29/24 06:12
Eosinophils % 1.0 % (0-6) 01/29/24 06:12
Basophils % 0.8 % (0-2) 01/29/24 06:12
Lactic Acid Cancelled 01/28/24 21:45
Ur Squamous Epith Cells 3-5 /LPF (Few) 01/28/24 19:22
Microbiology Results
Micro:
01/28/24 19:22 Urine Culture - Pending
Urine
01/28/24 17:50 Blood Culture - Pending
Blood/Venous
01/28/24 17:50 Blood Culture - Pending
Blood/Venous
Assessment / Plan
Diarrhea - C difficile vs antibiotic associated diarrhea
- stool will be sent for C difficile and culture
- CT without evidence of megacolon
- start oral vancomycin 125 mg PO QID
- avoid PPIs
- start probiotics
- follow clinically
Enterococcal bacteremia and UTI
- on day 11 of antibiotics - tentatively for 14 day course, may reassess pending above work up
- start unasyn, stop vancomycin/cefepime
--- NOTE | 2024-01-29 11:49 | W.PN.HOSP.TC ---
Today's Communication/Plan
-
await stool sample for C.Diff
ID and Urology consults
Assessment / Plan
Assessment / Plan
# Severe abdominal pain possibly secondary to antibiotic associated diarrhea versus C. difficile colitis versus persistent/partially treated UTI-persistent rt ureteral vesicular calculus
-Predominant symptom is abdominal pain and diarrhea appears to be more likely related to diarrhea/colitis
-See individually below
WBC 12.1-->11.6k
# Antibiotic associated diarrhea versus C. difficile
-IV fluids
-Check stool culture, C. difficile
# Possible persistent/partially treated UTI
# Recent Enterococcus bacteremia associated with right pyelonephritis related to recent stent status post antibiotics and stent removal
-Urinalysis appears improved, still showing 16-20 WBC
-Check urine culture, blood cultures
-CT abdomen pelvis shows 2 to 3 mm calculus at the right ureterovesicular junction with minimal right hydroureteronephrosis
-Switch Levaquin to vancomycin/cefepime
-ID consulted
Hospitalization of 01/17 demonstrated Blood and Urine cx +for Enterococcus sens to Vanco
#Anemia with associated hypochromic/microcytic indices
possibly Thalassemia, will check Fe studies
# 2 to 3 mm calculus at the right uteropelvic junction with minimal right hydroureteronephrosis
-IV fluids
-Urology consulted
Type 2 diabetes
-Hold metformin
-insulin sliding scale
Hga1c 6.7%
Essential hypertension
-Continue hydrochlorothiazide, ramipril
-Continue prophylactic aspirin
Hyperlipidemia
-Continue statin
Arthritis
Full code
DVT prophylaxis�heparin
Regular diet
Anticipated Discharge: > 48 hours
Subjective/Interval History
-
Date of Service: January 29, 2024
Awake, alert, no dysuria, no diarrhea yet this morning prior to being seen
Objective Data
-
Labs:
Laboratory Results
01/29/24
06:12
WBC 11.6 H
Hgb 11.4 L
Hct 37.0 L
Plt Count 463 H
Sodium 135
Potassium 4.4
Chloride 100
Carbon Dioxide 27
BUN 20
Creatinine 0.7
Glucose 117 H
Calcium 9.0 D
Total Bilirubin 0.7
AST 28
ALT 40
Alkaline Phosphatase 86
Vital Signs:
Vital Signs
Temp Pulse Resp BP Pulse Ox
98.1 F 75 16 142/73 95
01/29/24 07:20 01/29/24 08:03 01/29/24 07:20 01/29/24 08:03 01/29/24 09:05
I&O
01/28/24 01/29/24 01/30/24
06:59 06:59 06:59
Intake Total 1979
Output Total 425 / 425
Balance 1555 / 1555
Review of Systems
-
History Source: Patient and Coordinated Provider
Constitutional: Denies Fever
EENT: Reports No Symptoms Reported
Respiratory: Reports No Symptoms
Cardiac: Reports No Symptoms
Abdomen/GI: Reports Abdominal Pain
Genitourinary: Denies Dysuria
Physical Exam
-
General: Well Developed, Well Nourished and No Apparent Distress
HEENT: Normocephalic, Atraumatic and Moist Mucous Membranes
Respiratory: Clear to Auscultation; Negative Wheezes, Rales or Rhonchi
Cardiac: Regular Rhythm and S1/S2
GI: Soft, Nontender and Nondistended
Genito-urinary: No Costovertebral Tender
[2024-01-29 11:55] LABS: Glucose - Point of Care 181 mg/dl (70-99)
[2024-01-29] MEDS: STERILE WATER FOR INJECTION 10 ML IV (12:23)
[2024-01-29] MEDS: MAXIPIME 2000 MG IV (12:23)
[2024-01-29] MEDS: NOVOLOG FLEXPEN-LOW RESISTANCE 1 UNITS SC (12:23)
[2024-01-29] MEDS: VISBIOME 2 CAP PO (13:12)
[2024-01-29] MEDS: UNASYN IV ×2 (13:42→20:06)
--- NOTE | 2024-01-29 13:49 | W.PN.URO.CBU ---
Today's Communication / Plan
-
Expectant management of right upper tract stones
Discussed with Dr. Ybarra
Assessment / Plan
-
Right renal calculi
2 mm right UVJ stone: asymptomatic
No evidence of recurrent urosepsis/complicated UTI
Diagnosis
-
Date of Service: January 29, 2024
-
Patient Diagnosis:
History of Enterobacter bacteremia/urosepsis following right ureteroscopic laser lithotripsy 01/10/24 followed by cystoscopy with right JJ stent removal 01/24/24
---
Patient returned to the ER yesterday with c/o lower abdominal pain w/o right flank pain, dysuria, fever or gross hematuria
CT scan revealed evidence of a 2-3 mm right UVJ stone with only minimal hydronephrosis and w/o delayed extravasation of contrast from the right upper tract: images personally reviewed
Subjective
-
c/o lower abdominal pain just above the SP region
Offers no other complaints
Objective
-
Vital Signs
Temp Pulse Resp BP Pulse Ox
98.1 F 75 16 142/73 95
01/29/24 07:20 01/29/24 08:03 01/29/24 07:20 01/29/24 08:03 01/29/24 09:05
Intake and Output
01/28/24 01/29/24 01/30/24
06:59 06:59 06:59
Intake Total 1979 / 1979
Output Total 425 / 425
Balance 1555 / 1555
Intake:
Oral fluids 480 / 480
IV fluids (Total) 700 / 700
IV piggybacks 800 / 800
Output:
Urine, Voided 425 / 425
Laboratory Results
01/29/24 06:12
01/29/24 06:12
Review of Systems
-
Constitutional: No Symptoms
Respiratory: No Symptoms
Cardiac: No Symptoms
Abdomen/GI: Abdominal Pain
: No Symptoms
Neurological: No Symptoms
Physical Exam
-
General - well nourished, no acute distress
Abdomen - soft, some lower abdominal midline discomfort to palpation
Genitalia - normal
Counseling
-
No role for urologic intervention at this time
[2024-01-29 16:00] VITALS: BP 115/66
[2024-01-29] MEDS: DILAUDID 0.5 MG IV (16:07)
[2024-01-29] MEDS: ZOFRAN 4 MG IV (16:16)
[2024-01-29 17:08] LABS: Glucose - Point of Care 122 mg/dl (70-99)
[2024-01-29] MEDS: FIRVANQ 125 MG PO ×2 (17:36→23:16)
[2024-01-29] MEDS: LIPITOR 40 MG PO (17:36)
[2024-01-29 21:36] LABS: Glucose - Point of Care 166 mg/dl (70-99)
[2024-01-29 23:00] VITALS: BP 130/68
[2024-01-29 23:37] VITALS: BP 130/68
[2024-01-30] MEDS: UNASYN IV ×3 (02:16→13:32)
[2024-01-30] MEDS: NSS 1000 IV (03:42)
[2024-01-30] MEDS: FIRVANQ 125 MG PO ×3 (05:16→17:19)
[2024-01-30 06:25] LABS: % Basophils 0.9 % (0-2); % Eosinophils 1.6 % (0-6); % Immature Granulocytes 1.3 % (0-0.5); % Lymphocytes 12.9 % (20.5-51.1); % Monocytes 9.3 % (1.7-9.3); Absolute Basophils 0.1 10^3/uL (0-0.2); Absolute Eosinophils 0.2 10^3/uL (0-0.7); Absolute Immature Granulocytes 0.1 10^3/uL (0-0.05); Absolute Lymphocytes 1.2 10^3/uL (1.2-3.4); Absolute Monocytes 0.9 10^3/uL (0.1-0.6); Absolute Neutrophils 7.1 10^3/uL (1.4-6.5); Hematocrit 37.1 % (39.0-52.0); Hemoglobin 11.2 g/dL (13.0-18.0); Mean Corp Hgb Conc. 30.2 g/dL (33.0-37.0); Mean Corpuscular Hgb 19.9 pg (27.0-31.0); Mean Corpuscular Volume 65.9 fL (80.0-94.0); Mean Platelet Volume 9.4 fL (7.4-10.4); Nucleated Red Blood Cells % 0 % (-); Platelet Count 476 10^3/uL (130-400); Red Blood Cell Count 5.63 10^6/uL (4.70-6.10); Red Cell Dist. Width 22.3 % (11.5-14.5); White Blood Cell Count 9.6 10^3/uL (4.8-10.8)
[2024-01-30 06:47] LABS: Blood Urea Nitrogen 11 mg/dl (9-20); Carbon Dioxide 28 mmol/L (22-30); Chloride 100 mmol/L (98-107); Estimated Creatinine Clearance > 125 ml/min; Glucose 122 mg/dl (70-99); Iron 39 ug/dl (49-181); Potassium 4.2 mmol/L (3.5-5.1); Sodium 133 mmol/L (135-145); eGFR > 60.00
[2024-01-30 06:56] LABS: Percent Saturation 15 % (20-50); Total Iron Binding Capacity 257 ug/dl (261-462)
[2024-01-30 07:21] LABS: Ferritin 35.7 ng/ml (17.9-464.0)
[2024-01-30 07:22] LABS: Glucose - Point of Care 113 mg/dl (70-99)
[2024-01-30 07:30] VITALS: BP 130/76
[2024-01-30 07:52] LABS: Folate > 20.0 ng/ml (2.76-20); Vitamin B12 400 pg/ml (239-931)
[2024-01-30] MEDS: NOVOLOG FLEXPEN-LOW RESISTANCE SC (08:41)
[2024-01-30] MEDS: FLOMAX 0.400000000000000022 MG PO (08:42)
[2024-01-30] MEDS: VISBIOME 2 CAP PO (08:42)
[2024-01-30] MEDS: ALTACE 10 MG PO (08:42)
[2024-01-30] MEDS: ORETIC 25 MG PO (08:42)
[2024-01-30] MEDS: ASPIR LOW (ENTERIC COATED) 81 MG PO (08:42)
[2024-01-30] MEDS: HEPARIN 5000 UNITS SC ×2 (08:45→21:44)
[2024-01-30 11:39] LABS: Glucose - Point of Care 152 mg/dl (70-99)
[2024-01-30] MEDS: NOVOLOG FLEXPEN-LOW RESISTANCE 1 UNITS SC ×2 (12:44→17:20)
--- NOTE | 2024-01-30 14:39 | CM ---
Spoke with Rachel briceno at [facility] who confirmed that patient is under their service and will come back out when patient is discharged.
Reviewed chart, patient was recently discharged from . He stated that he lives with his spouse in a one story home with one step to enter. He is independent with his ADLs, personal care, dressing, bathing, toileting and ambulates without device.
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 Patient drives and can get to his appointments and do his own shopping.
Patient stated that he has an adult disabled son for whom he has caregivers.
Patient has been to [facility] for rehab in the past.
His PCP is Leandro Harper
He has a prescription plan and uses the [facility] on [address] for all of his medications.
Plan: Case management will continue to follow and assist with discharge planning. Patient would like to return home with [facility] when he is medically cleared.
--- NOTE | 2024-01-30 14:56 | W.PN.HOSP.TC ---
Addendum entered and electronically signed by El Boykin MD 01/30/24 15:21:
correction, Celestinolecit will be given
Pt had a colonoscopy in Aug 2023 following a pos Cologuard study and was nl except for a 10 mm polyp that was resected
Original Note:
Today's Communication/Plan
-
stop IVF
Venofer
continue IV abx for now
Assessment / Plan
Assessment / Plan
# Severe abdominal pain possibly secondary to antibiotic associated diarrhea versus C. difficile colitis versus persistent/partially treated UTI-persistent rt ureteral vesicular calculus
-Predominant symptom is abdominal pain and diarrhea appears to be more likely related to diarrhea/colitis, appears to have resolved
-See individually below
WBC 12.1-->11.6-->9.6k
# Antibiotic associated diarrhea most likely, negative C. difficile
-stop IV fluids
-neg stool culture to date
# Possible persistent/partially treated UTI
# Recent Enterococcus bacteremia associated with right pyelonephritis related to recent stent status post antibiotics and stent removal
-Urinalysis appears improved, still showing 16-20 WBC
-Check urine culture, blood cultures
-CT abdomen pelvis shows 2 to 3 mm calculus at the right ureterovesicular junction with minimal right hydroureteronephrosis
-Switch Levaquin to vancomycin/cefepime
-ID consulted
Hospitalization of 01/17 demonstrated Blood and Urine cx +for Enterococcus sens to Vanco
#Anemia with associated hypochromic/microcytic indices
Fe studies demonstrate low Fe
# 2 to 3 mm calculus at the right uteropelvic junction with minimal right hydroureteronephrosis
-IV fluids
-Urology consulted
Type 2 diabetes
-Hold metformin
-insulin sliding scale
Hga1c 6.7%
Essential hypertension
-Continue hydrochlorothiazide, ramipril
-Continue prophylactic aspirin
Hyperlipidemia
-Continue statin
Arthritis
Full code
DVT prophylaxis�heparin
Regular diet
Anticipated Discharge: 24 - 48 hours
Subjective/Interval History
-
Date of Service: January 30, 2024
Generally feeling better, he thinks he passed the stone
Objective Data
-
Labs:
Laboratory Results
01/30/24
06:01
WBC 9.6
Hgb 11.2 L
Hct 37.1 L
Plt Count 476 H
Sodium 133 L
Potassium 4.2
Chloride 100
Carbon Dioxide 28
BUN 11
Creatinine 0.6 L
Glucose 122 H
Calcium 9.0
Vital Signs:
Vital Signs
Temp Pulse Resp BP Pulse Ox
98.4 F 74 18 130/76 95
01/30/24 07:30 01/30/24 08:42 01/30/24 07:30 01/30/24 08:42 01/30/24 09:18
I&O
01/29/24 01/30/24 01/31/24
06:59 06:59 06:59
Intake Total 1979 / 1979 3010 / 3010
Output Total 425 / 425 2200 / 2200
Balance 1555 / 1555 810 / 810
Review of Systems
-
History Source: Patient and Coordinated Provider
Constitutional: Denies Fever
EENT: Reports No Symptoms Reported
Respiratory: Reports No Symptoms
Cardiac: Reports No Symptoms
Abdomen/GI: Denies Abdominal Pain (resolved)
Genitourinary: Denies Dysuria
Physical Exam
-
General: Well Developed, Well Nourished and No Apparent Distress
HEENT: Normocephalic, Atraumatic and Moist Mucous Membranes
Respiratory: Clear to Auscultation; Negative Wheezes, Rales or Rhonchi
Cardiac: Regular Rhythm and S1/S2
GI: Soft, Nontender and Nondistended
Genito-urinary: No Costovertebral Tender
[2024-01-30 15:00] VITALS: BP 117/68
[2024-01-30] MEDS: FERRLECIT 110 MG IV (16:24)
[2024-01-30 16:56] LABS: Glucose - Point of Care 161 mg/dl (70-99)
[2024-01-30] MEDS: LIPITOR 40 MG PO (17:21)
--- NOTE | 2024-01-30 17:36 | W.PN.ID1 ---
Date of Service
Date of Service: January 30, 2024
Today's Communication
- on day 12 of 14 of antibiotics; switched to amoxicillin to complete the course
probiotics
Assessment / Plan
Abdominal Pain
- would attribute to passage of small stones
Antibiotic associated diarrhea
- stop oral vancomycin, narrowed spectrum
- continue probiotics for another 5 days
- follow clinically
Enterococcal bacteremia and UTI
- on day 12 of 14 of antibiotics; switched to amoxicillin to complete the course
Chief Complaint
-: Other (diarrhea)
Subjective / Review of Systems
afebrile
bp stable
C difficile negative
leukocytosis resolving
cr stable
urine culture negative
Vital Signs / Physical Exam
Vital Signs
Vital Signs
Temp Pulse Resp BP Pulse Ox
98.3 F 79 18 117/68 94
01/30/24 15:00 01/30/24 15:00 01/30/24 15:00 01/30/24 15:00 01/30/24 15:00
Physical Exam
Constitutional: No Acute Distress
Cardiovascular: Regular Rate and S1/S2; Negative Murmur or Rub
Pulmonary: Clear and Symmetric; Negative Wheezes or Rales
Gastrointestinal: Soft, Non Tender, Non Distended and Normal Bowel Sounds
Genito-Urinary: Negative Suprapubic Tenderness
Skin: Warm and Dry; Negative Rash or Jaundice
Objective Data
Lab Data
Lab Results
01/30/24 06:01
01/30/24 06:01
Estimated Creat Clear > 125 ml/min 01/30/24 06:01
Lactic Acid Cancelled 01/28/24 21:45
Total Bilirubin 0.7 mg/dl (0.2-1.3) 01/29/24 06:12
AST 28 U/L (17-59) 01/29/24 06:12
ALT 40 U/L (0-50) 01/29/24 06:12
Alkaline Phosphatase 86 U/L (38-126) 01/29/24 06:12
Most recent labs reviewed.
Micro Results:
01/29/24 13:02 Salmonella/Shigella Culture - Preliminary
Feces/Stool Culture in Progress
Campylobacter Culture - Preliminary
Culture in Progress
Shiga Toxin Test - Pending
01/28/24 19:22 Urine Culture - Final
Urine NO GROWTH
01/28/24 17:50 Blood Culture - Preliminary
Blood/Venous No Growth in 24 hours- Final report to follow
01/28/24 17:50 Blood Culture - Preliminary
Blood/Venous No Growth in 24 hours- Final report to follow
01/29/24 13:02 C. difficile GDH Antigen & Toxins - Final
Feces/Stool Negative for toxigenic C.difficile
[2024-01-30] MEDS: AMOXIL 500 MG PO (18:12)
[2024-01-30 21:18] LABS: Glucose - Point of Care 184 mg/dl (70-99)
[2024-01-30 23:05] VITALS: BP 114/63
[2024-01-31] MEDS: AMOXIL 500 MG PO ×2 (01:40→09:44)
[2024-01-31 07:00] VITALS: BP 126/75
[2024-01-31] MEDS: ALTACE 10 MG PO (08:03)
[2024-01-31] MEDS: VISBIOME 2 CAP PO (08:04)
[2024-01-31] MEDS: ASPIR LOW (ENTERIC COATED) 81 MG PO (08:04)
[2024-01-31] MEDS: FLOMAX 0.400000000000000022 MG PO (08:04)
[2024-01-31] MEDS: ORETIC 25 MG PO (08:04)
[2024-01-31] MEDS: HEPARIN 5000 UNITS SC (08:05)
[2024-01-31 08:23] LABS: Glucose - Point of Care 167 mg/dl (70-99)
[2024-01-31] MEDS: NOVOLOG FLEXPEN-LOW RESISTANCE 1 UNITS SC ×2 (09:42→12:47)
[2024-01-31 12:40] LABS: Glucose - Point of Care 175 mg/dl (70-99)
--- NOTE | 2024-01-31 13:24 | W.PN.HOSP.TC ---
Today's Communication/Plan
-
dc to home
Assessment / Plan
Assessment / Plan
# Severe abdominal pain possibly secondary to antibiotic associated diarrhea versus C. difficile colitis versus persistent/partially treated UTI-persistent rt ureteral vesicular calculus now fully resolved
-Predominant symptom is abdominal pain and diarrhea appears to be more likely related to diarrhea/colitis, appears to have resolved
-See individually below
WBC 12.1-->11.6-->9.6k
# Antibiotic associated diarrhea most likely, negative C. difficile
-stop IV fluids
-neg stool culture to date
# Possible persistent/partially treated UTI
# Recent Enterococcus bacteremia associated with right pyelonephritis related to recent stent status post antibiotics and stent removal
-Urinalysis appears improved, still showing 16-20 WBC
-Check urine culture, blood cultures
-CT abdomen pelvis shows 2 to 3 mm calculus at the right ureterovesicular junction with minimal right hydroureteronephrosis
-Amox on dc
-ID consulted, input appreciated
Hospitalization of 01/17 demonstrated Blood and Urine cx +for Enterococcus sens to Vanco and Amox
#Anemia with associated hypochromic/microcytic indices
Fe studies demonstrate low Fe
# 2 to 3 mm calculus at the right uteropelvic junction with minimal right hydroureteronephrosis
-IV fluids
-Urology consulted
Type 2 diabetes
-resume metformin on dc
-insulin sliding scale
Hga1c 6.7%
Essential hypertension
-Continue hydrochlorothiazide, ramipril
-Continue prophylactic aspirin
Hyperlipidemia
-Continue statin
Arthritis
Full code
DVT prophylaxis�heparin
Regular diet
dc now
More than 30 minutes spent in discharge including
Final examination of the patient
Summarizing hospital stay
Instructions for continuing care to all relevant caregivers
Preparation of discharge records, prescriptions, and referral forms
Total time spent (in minutes): 45
Anticipated Discharge: Today
Subjective/Interval History
-
Date of Service: January 31, 2024
Generally feels better, tolerating diet and no diarrhea >48 hrs
Objective Data
-
Vital Signs:
Vital Signs
Temp Pulse Resp BP Pulse Ox
98.3 F 83 16 111/71 95
01/31/24 07:00 01/31/24 08:04 01/31/24 07:00 01/31/24 08:04 01/31/24 07:00
I&O
01/30/24 01/31/24 02/01/24
06:59 06:59 06:59
Intake Total 3010 / 3010 1160 / 1160
Output Total 2200 / 2200 1200 / 1200
Balance 810 / 810 -40 / -40
Review of Systems
-
History Source: Patient and Coordinated Provider
Constitutional: Denies Fever
EENT: Reports No Symptoms Reported
Respiratory: Reports No Symptoms
Cardiac: Reports No Symptoms
Abdomen/GI: Denies Abdominal Pain (resolved) or Diarrhea
Genitourinary: Denies Dysuria
Physical Exam
-
General: Well Developed, Well Nourished and No Apparent Distress
HEENT: Normocephalic, Atraumatic and Moist Mucous Membranes
Respiratory: Clear to Auscultation; Negative Wheezes, Rales or Rhonchi
Cardiac: Regular Rhythm and S1/S2
GI: Soft, Nontender and Nondistended
Genito-urinary: No Costovertebral Tender
--- NOTE | 2024-01-31 13:31 | W.PN.ID1 ---
Date of Service
Date of Service: January 31, 2024
Today's Communication
- on day 13 of 14 of antibiotics; switched to amoxicillin to complete the course
Follow up with urology
Assessment / Plan
Abdominal Pain
- would attribute to passage of small stones
Antibiotic associated diarrhea
- stop oral vancomycin, narrowed spectrum
- continue probiotics for another 4 days
Enterococcal bacteremia and UTI
- on day 13 of 14 of antibiotics; switched to amoxicillin to complete the course
Follow up with urology
Chief Complaint
-: Other (diarrhea)
Subjective / Review of Systems
afebrile
bp stable
has short episdoe of colicky abdominal pain that resolved within minutes
Vital Signs / Physical Exam
Vital Signs
Vital Signs
Temp Pulse Resp BP Pulse Ox
98.3 F 83 16 111/71 95
01/31/24 07:00 01/31/24 08:04 01/31/24 07:00 01/31/24 08:04 01/31/24 07:00
Physical Exam
Constitutional: No Acute Distress
Cardiovascular: Regular Rate and S1/S2; Negative Murmur or Rub
Pulmonary: Clear and Symmetric; Negative Wheezes or Rales
Gastrointestinal: Soft, Non Tender, Non Distended and Normal Bowel Sounds
Genito-Urinary: Negative Suprapubic Tenderness
Skin: Warm and Dry; Negative Rash or Jaundice
Objective Data
Lab Data
Lab Results
01/30/24 06:01
01/30/24 06:01
Estimated Creat Clear > 125 ml/min 01/30/24 06:01
Lactic Acid Cancelled 01/28/24 21:45
Total Bilirubin 0.7 mg/dl (0.2-1.3) 01/29/24 06:12
AST 28 U/L (17-59) 01/29/24 06:12
ALT 40 U/L (0-50) 01/29/24 06:12
Alkaline Phosphatase 86 U/L (38-126) 01/29/24 06:12
Most recent labs reviewed.
Micro Results:
01/29/24 13:02 Salmonella/Shigella Culture - Final
Feces/Stool No Salmonella, Shigella, Aeromonas or Plesiomonas species
isolated.
Campylobacter Culture - Final
No Campylobacter species isolated.
Shiga Toxin Test - Final
No E. coli Shiga Toxin 1 or 2 detected.
01/28/24 17:50 Blood Culture - Preliminary
Blood/Venous No Growth in 48 hours- Final report to follow
01/28/24 17:50 Blood Culture - Preliminary
Blood/Venous No Growth in 48 hours- Final report to follow
01/28/24 19:22 Urine Culture - Final
Urine NO GROWTH
01/29/24 13:02 C. difficile GDH Antigen & Toxins - Final
Feces/Stool Negative for toxigenic C.difficile
--- NOTE | 2024-01-31 13:57 | W.DS.TRANS ---
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
-
Discharge Instructions:
Discharge Diagnosis/Procedures Antibiotic associated diarrhea, renal colic,
anemia
Diet Diabetic, Carb Controlled
Activity As tolerated
Driving Restrictions Not until seen by your Dr
Bathing Restrictions None
Blood Work CBC, BMP, UA in 1-2 weeks
Other Services VN
Instructions:
Stand-Alone Forms:
Changes to Home Medications: Yes
Discharge Medications:
DC Medications w/original date entered in [employer]
atorvastatin 40 mg tablet 40 mg PO QPM High cholesterol 04/02/17
ramipril 10 mg capsule 10 mg PO DAILY Blood pressure 04/02/17
aspirin 81 mg tablet,delayed release 81 mg PO DAILY Blood clot prevention/tx 05/23/20
multivitamin 1 tab PO HS Supplement 01/04/24
metformin 1,000 mg tablet 1,000 mg PO BID Diabetes 01/18/24
tamsulosin 0.4 mg capsule 0.4 mg PO DAILY Urinary Issue 01/18/24
acetaminophen 325 mg tablet (Tylenol) 650 mg PO Q4HPRN PRN mild pain 01/28/24
bismuth subsalicylate 262 mg tablet (Pepto-Bismol) 524 mg PO DAILYPRN PRN gerd 01/28/24
hydrochlorothiazide 25 mg tablet 25 mg PO DAILY Blood Pressure 01/28/24
Lactobac/Bifidobac [Visbiome] 2 cap PO DAILY ##0 01/31/24
amoxicillin 500 mg capsule 500 mg PO Q8H #9 caps 01/31/24
Home Medication Changes
Amoxicillin added for 3 more days, 9 doses
Pending Results: No
[2024-01-31 15:00] VITALS: BP 132/76
== END 2024-01-31 17:16 | disposition home health service (06) | DRG 394 ==
LOC: 3 WEST ACU 20:11
PROVIDERS: ADMITTING PHYSICIAN Hospitalist; ATTENDING PHYSICIAN Internal Medicine; CONSULT PHYSICIAN Specialist; EMERGENCY PHYSICIAN Emergency Medicine; FAMILY PHYSICIAN Internal Medicine; OTHER PHYSICIAN Student in an Organized Health Care Education/Training Program
DX: K52.1 Toxic gastroenteritis and colitis (principal); E87.1 Hypo-osmolality and hyponatremia; N12 Tubulo-interstitial nephritis, not specified as acute or chronic; N39.0 Urinary tract infection, site not specified; N20.2 Calculus of kidney with calculus of ureter; E78.00 Pure hypercholesterolemia, unspecified; I10 Essential (primary) hypertension; K42.9 Umbilical hernia without obstruction or gangrene; M17.0 Bilateral primary osteoarthritis of knee; E11.9 Type 2 diabetes mellitus without complications; D50.9 Iron deficiency anemia, unspecified; T36.95XA Adverse effect of unspecified systemic antibiotic, initial encounter; Y92.9 Unspecified place or not applicable; Z87.442 Personal history of urinary calculi
CPT/HCPCS: 74177; 80048; 80053; 81003; 81015; 82607; 82728; 82746; 82962; 83540; 83550; 83605; 85025; 87040; 87045; 87046; 87086; 87324; 87427; 87449; 93005; 96361; 96374; 96375; 99285; J2916; Q9967

== ENCOUNTER → 2024-02-07 06:47 | Outpatient (REF) | payer MEDICARE, OTHER, SELFPAY ==
[2024-02-07 07:25] LABS: % Basophils 1.3 % (0-2); % Eosinophils 3.1 % (0-6); % Immature Granulocytes 0.9 % (0-0.5); % Lymphocytes 23.3 % (20.5-51.1); % Monocytes 11.8 % (1.7-9.3); % Neutrophils 59.6 % (42.2-75.2); Absolute Basophils 0.1 10^3/uL (0-0.2); Absolute Eosinophils 0.2 10^3/uL (0-0.7); Absolute Immature Granulocytes 0.1 10^3/uL (0-0.05); Absolute Lymphocytes 1.6 10^3/uL (1.2-3.4); Absolute Monocytes 0.8 10^3/uL (0.1-0.6); Hematocrit 41.4 % (39.0-52.0); Hemoglobin 12.7 g/dL (13.0-18.0); Mean Corp Hgb Conc. 30.7 g/dL (33.0-37.0); Mean Corpuscular Hgb 20.7 pg (27.0-31.0); Mean Corpuscular Volume 67.4 fL (80.0-94.0); Mean Platelet Volume 9.5 fL (7.4-10.4); Nucleated Red Blood Cells % 0 % (-); Platelet Count 524 10^3/uL (130-400); Red Blood Cell Count 6.14 10^6/uL (4.70-6.10); Red Cell Dist. Width 25.2 % (11.5-14.5); White Blood Cell Count 6.8 10^3/uL (4.8-10.8)
[2024-02-07 07:51] LABS: ALT (SGPT) 25 U/L (0-50); AST (SGOT) 26 U/L (17-59); Albumin 4.1 g/dl (3.5-5.0); Alkaline Phosphatase 95 U/L (38-126); Blood Urea Nitrogen 24 mg/dl (9-20); Calcium 9.7 mg/dl (8.4-10.2); Carbon Dioxide 26 mmol/L (22-30); Chloride 103 mmol/L (98-107); Glucose 121 mg/dl (70-99); HDL Cholesterol 47 mg/dl; LDL Cholesterol, Calculated 70 mg/dl; Potassium 5.3 mmol/L (3.5-5.1); Sodium 138 mmol/L (135-145); Total Bilirubin 0.9 mg/dl (0.2-1.3); Total Cholesterol 134 mg/dl (50-199); Total Protein 6.4 g/dl (6.3-8.2); Triglyceride 86 mg/dl (10-149); Very Low Density Lipoprotein 17 mg/dl (0-30); eGFR > 60.00
[2024-02-07 08:21] LABS: Anisocytosis 1+; Hypochromasia 1+; Normal RBC Morphology No; Ovalocytes 2+
[2024-02-07 08:22] LABS: Acanthocytes 1+; Poikilocytosis 1+
[2024-02-07 08:28] LABS: Microalbumin, Random Urine 1.3 mg/dl (0.6-1.7); Microalbumin/creatinine Ratio 10.6 mg/g
== END ==
LOC: REG 06:47
PROVIDERS: ATTENDING PHYSICIAN Internal Medicine
DX: I10 Essential (primary) hypertension (principal); E11.9 Type 2 diabetes mellitus without complications; E78.2 Mixed hyperlipidemia; M15.9 Polyosteoarthritis, unspecified; I77.810 Thoracic aortic ectasia; N20.0 Calculus of kidney; Z00.00 Encounter for general adult medical examination without abnormal findings
CPT/HCPCS: 36415; 80053; 80061; 82043; 82570; 85025

== ENCOUNTER → 2024-02-14 14:17 | Outpatient (REF) | payer MEDICARE, OTHER, SELFPAY | LOC: RAD 14:17 | PROVIDERS: ATTENDING PHYSICIAN Internal Medicine Cardiovascular Disease; FAMILY PHYSICIAN Internal Medicine | DX: I10 Essential (primary) hypertension (principal); I77.810 Thoracic aortic ectasia | CPT/HCPCS: 71275; Q9967 ==

== ENCOUNTER → 2024-02-29 07:46 | Outpatient (REF) | payer MEDICARE, OTHER, SELFPAY ==
[2024-02-29 08:27] LABS: % Basophils 0.8 % (0-2); % Eosinophils 3.5 % (0-6); % Immature Granulocytes 0.4 % (0-0.5); % Lymphocytes 20.5 % (20.5-51.1); % Monocytes 14.7 % (1.7-9.3); % Neutrophils 60.1 % (42.2-75.2); Absolute Basophils 0.1 10^3/uL (0-0.2); Absolute Eosinophils 0.3 10^3/uL (0-0.7); Absolute Lymphocytes 1.5 10^3/uL (1.2-3.4); Absolute Monocytes 1.1 10^3/uL (0.1-0.6); Absolute Neutrophils 4.5 10^3/uL (1.4-6.5); Hematocrit 41.6 % (39.0-52.0); Hemoglobin 12.8 g/dL (13.0-18.0); Mean Corp Hgb Conc. 30.8 g/dL (33.0-37.0); Mean Corpuscular Hgb 20.7 pg (27.0-31.0); Mean Corpuscular Volume 67.2 fL (80.0-94.0); Mean Platelet Volume 9.5 fL (7.4-10.4); Nucleated Red Blood Cells % 0 % (-); Platelet Count 362 10^3/uL (130-400); Red Blood Cell Count 6.19 10^6/uL (4.70-6.10); Red Cell Dist. Width 23.9 % (11.5-14.5); White Blood Cell Count 7.5 10^3/uL (4.8-10.8)
[2024-02-29 09:31] LABS: Iron 40 ug/dl (49-181)
[2024-02-29 09:44] LABS: Percent Saturation 12 % (20-50); Total Iron Binding Capacity 325 ug/dl (261-462)
[2024-02-29 10:09] LABS: Ferritin 13.4 ng/ml (17.9-464.0)
[2024-02-29 10:59] LABS: Absolute Neutrophils -Man Diff 4.6 10^3/uL (1.4-6.5); Atypical Lymphocytes 2 %; Band Neutrophils 0 % (0-3); Eosinophils 2 % (0-6); Lymphocytes 22 % (20-51); Monocytes 12 % (2-9); Segmented Neutrophils 62 % (42-75)
[2024-02-29 11:00] LABS: Acanthocytes 1+; Anisocytosis 1+; Hypochromasia 2+; Normal RBC Morphology No; Ovalocytes 2+; Platelets Checked Yes; Polychromasia 1+; Total Cells Counted 100
== END ==
LOC: REG 07:46
PROVIDERS: ATTENDING PHYSICIAN Internal Medicine
DX: D50.9 Iron deficiency anemia, unspecified (principal)
CPT/HCPCS: 36415; 82728; 83540; 83550; 85025

== ENCOUNTER → 2024-04-02 08:15 | Outpatient (REF) | payer MEDICARE, OTHER, SELFPAY ==
[2024-04-02 08:29] LABS: % Basophils 0.3 % (0-2); % Eosinophils 2.9 % (0-6); % Immature Granulocytes 0.3 % (0-0.5); % Lymphocytes 15.9 % (20.5-51.1); % Monocytes 11.2 % (1.7-9.3); % Neutrophils 69.4 % (42.2-75.2); Absolute Eosinophils 0.2 10^3/uL (0-0.7); Absolute Lymphocytes 1.2 10^3/uL (1.2-3.4); Absolute Monocytes 0.8 10^3/uL (0.1-0.6); Absolute Neutrophils 5.2 10^3/uL (1.4-6.5); Hematocrit 42.1 % (39.0-52.0); Hemoglobin 13.2 g/dL (13.0-18.0); Mean Corp Hgb Conc. 31.4 g/dL (33.0-37.0); Mean Corpuscular Hgb 21.3 pg (27.0-31.0); Platelet Count 332 10^3/uL (130-400); Red Blood Cell Count 6.19 10^6/uL (4.70-6.10); White Blood Cell Count 7.5 10^3/uL (4.8-10.8)
== END ==
LOC: OIDL 08:15
PROVIDERS: ATTENDING PHYSICIAN Internal Medicine Hematology & Oncology; OTHER PHYSICIAN Internal Medicine
DX: D45 Polycythemia vera (principal)
CPT/HCPCS: 36415; 85025

== ENCOUNTER → 2024-06-19 08:10 | Outpatient (REF) | payer MEDICARE, OTHER, SELFPAY ==
[2024-06-19 08:31] LABS: % Basophils 0.4 % (0-2); % Eosinophils 2.7 % (0-6); % Immature Granulocytes 0.3 % (0-0.5); % Monocytes 12.5 % (1.7-9.3); % Neutrophils 66.1 % (42.2-75.2); Absolute Eosinophils 0.2 10^3/uL (0-0.7); Absolute Lymphocytes 1.3 10^3/uL (1.2-3.4); Absolute Monocytes 0.9 10^3/uL (0.1-0.6); Absolute Neutrophils 4.7 10^3/uL (1.4-6.5); Hematocrit 47.2 % (39.0-52.0); Mean Corp Hgb Conc. 31.8 g/dL (33.0-37.0); Mean Corpuscular Hgb 23.5 pg (27.0-31.0); Mean Corpuscular Volume 73.9 fL (80.0-94.0); Mean Platelet Volume 9.3 fL (7.4-10.4); Platelet Count 282 10^3/uL (130-400); Red Blood Cell Count 6.39 10^6/uL (4.70-6.10); Red Cell Dist. Width 23.2 % (11.5-14.5); White Blood Cell Count 7.1 10^3/uL (4.8-10.8)
== END ==
LOC: OIDL 08:10
PROVIDERS: ATTENDING PHYSICIAN Internal Medicine Hematology & Oncology; FAMILY PHYSICIAN Internal Medicine
DX: D45 Polycythemia vera (principal)
CPT/HCPCS: 36415; 85025

== ENCOUNTER → 2024-06-28 07:12 | Outpatient (REF) | payer MEDICARE, OTHER, SELFPAY ==
[2024-06-28 09:49] LABS: % Eosinophils 3.1 % (0-6); % Immature Granulocytes 0.6 % (0-0.5); % Lymphocytes 22.4 % (20.5-51.1); % Monocytes 12.6 % (1.7-9.3); % Neutrophils 60.3 % (42.2-75.2); Absolute Basophils 0.1 10^3/uL (0-0.2); Absolute Eosinophils 0.2 10^3/uL (0-0.7); Absolute Lymphocytes 1.5 10^3/uL (1.2-3.4); Absolute Monocytes 0.9 10^3/uL (0.1-0.6); Absolute Neutrophils 4.1 10^3/uL (1.4-6.5); Hematocrit 49.7 % (39.0-52.0); Hemoglobin 15.7 g/dL (13.0-18.0); Mean Corp Hgb Conc. 31.6 g/dL (33.0-37.0); Mean Corpuscular Hgb 23.6 pg (27.0-31.0); Mean Corpuscular Volume 74.8 fL (80.0-94.0); Mean Platelet Volume 10.2 fL (7.4-10.4); Nucleated Red Blood Cells % 0 % (-); Platelet Count 272 10^3/uL (130-400); Red Blood Cell Count 6.64 10^6/uL (4.70-6.10); Reticulocyte Count 1.7 % (0.4-2.8); White Blood Cell Count 6.8 10^3/uL (4.8-10.8)
[2024-06-28 10:07] LABS: Total Iron Binding Capacity 321 ug/dl (261-462)
[2024-06-28 10:34] LABS: Ferritin 11.5 ng/ml (17.9-464.0)
[2024-06-29 23:33] LABS: IgA 65 mg/dl (70-400)
[2024-06-30 23:45] LABS: Endomysial IgA Antibody Titer <1:10 (<1:10)
== END ==
LOC: REG 07:12
PROVIDERS: ATTENDING PHYSICIAN Internal Medicine
DX: D50.9 Iron deficiency anemia, unspecified (principal)
CPT/HCPCS: 36415; 82728; 82784; 83516; 83550; 85025; 85045; 86231

== ENCOUNTER → 2024-08-15 09:45 | Outpatient (REF) | payer MEDICARE, OTHER, SELFPAY ==
[2024-08-15 11:10] LABS: % Basophils 0.9 % (0-2); % Eosinophils 3.5 % (0-6); % Immature Granulocytes 0.5 % (0-0.5); % Lymphocytes 21.4 % (20.5-51.1); % Monocytes 13.4 % (1.7-9.3); % Neutrophils 60.3 % (42.2-75.2); Absolute Basophils 0.1 10^3/uL (0-0.2); Absolute Eosinophils 0.3 10^3/uL (0-0.7); Absolute Lymphocytes 1.7 10^3/uL (1.2-3.4); Absolute Monocytes 1.1 10^3/uL (0.1-0.6); Absolute Neutrophils 4.9 10^3/uL (1.4-6.5); Hematocrit 52.8 % (39.0-52.0); Mean Corp Hgb Conc. 32.2 g/dL (33.0-37.0); Mean Corpuscular Hgb 25.3 pg (27.0-31.0); Mean Corpuscular Volume 78.5 fL (80.0-94.0); Mean Platelet Volume 9.7 fL (7.4-10.4); Nucleated Red Blood Cells % 0 % (-); Platelet Count 259 10^3/uL (130-400); Red Blood Cell Count 6.73 10^6/uL (4.70-6.10); Red Cell Dist. Width 20.9 % (11.5-14.5); White Blood Cell Count 8.1 10^3/uL (4.8-10.8)
== END ==
LOC: REG 09:45
PROVIDERS: ATTENDING PHYSICIAN Nurse Practitioner Adult Health; FAMILY PHYSICIAN Internal Medicine
DX: D45 Polycythemia vera (principal)
CPT/HCPCS: 36415; 85025

== ENCOUNTER → 2024-10-01 10:29 | Outpatient (REF) | payer MEDICARE, OTHER, SELFPAY ==
[2024-10-01 11:57] LABS: Albumin 4.5 g/dl (3.5-5.0); Blood Urea Nitrogen 23 mg/dl (9-20); Calcium 10.2 mg/dl (8.4-10.2); Carbon Dioxide 26 mmol/L (22-30); Chloride 100 mmol/L (98-107); Glucose 94 mg/dl (70-99); Phosphorus 3.8 mg/dl (2.5-4.5); Potassium 4.5 mmol/L (3.5-5.1); Sodium 136 mmol/L (135-145); eGFR > 60.00
[2024-10-03 14:01] LABS: Intact PTH 10.2 pg/ml (13.6-85.8)
== END ==
LOC: REG 10:29
PROVIDERS: ATTENDING PHYSICIAN Specialist; FAMILY PHYSICIAN Internal Medicine
DX: N20.0 Calculus of kidney (principal); I10 Essential (primary) hypertension
CPT/HCPCS: 36415; 74018; 80069; 83970

== ENCOUNTER 2024-10-27 12:28 | Outpatient (RCR) | payer MEDICARE, OTHER, SELFPAY | END 2024-10-27 23:59 | disposition home or self-care (01) | LOC: RPT 12:28 | PROVIDERS: ATTENDING PHYSICIAN Student in an Organized Health Care Education/Training Program; FAMILY PHYSICIAN Internal Medicine | DX: M54.51 Vertebrogenic low back pain (principal); M47.816 Spondylosis without myelopathy or radiculopathy, lumbar region; M54.2 Cervicalgia; M47.812 Spondylosis without myelopathy or radiculopathy, cervical region; Z73.6 Limitation of activities due to disability | CPT/HCPCS: 97110; 97112; 97162 ==

== ENCOUNTER → 2024-11-07 07:43 | Outpatient (REF) | payer MEDICARE, OTHER, SELFPAY ==
[2024-11-07 08:19] LABS: % Basophils 0.3 % (0-2); % Eosinophils 2.3 % (0-6); % Immature Granulocytes 0.4 % (0-0.5); % Lymphocytes 16.7 % (20.5-51.1); % Monocytes 11.4 % (1.7-9.3); % Neutrophils 68.9 % (42.2-75.2); Absolute Eosinophils 0.2 10^3/uL (0-0.7); Absolute Lymphocytes 1.3 10^3/uL (1.2-3.4); Absolute Monocytes 0.9 10^3/uL (0.1-0.6); Absolute Neutrophils 5.3 10^3/uL (1.4-6.5); Hematocrit 52.4 % (39.0-52.0); Hemoglobin 17.4 g/dL (13.0-18.0); Mean Corp Hgb Conc. 33.2 g/dL (33.0-37.0); Mean Corpuscular Hgb 27.4 pg (27.0-31.0); Mean Corpuscular Volume 82.6 fL (80.0-94.0); Mean Platelet Volume 9.1 fL (7.4-10.4); Platelet Count 234 10^3/uL (130-400); Red Blood Cell Count 6.34 10^6/uL (4.70-6.10); Red Cell Dist. Width 16.2 % (11.5-14.5); White Blood Cell Count 7.7 10^3/uL (4.8-10.8)
== END ==
LOC: OIDL 07:43
PROVIDERS: ATTENDING PHYSICIAN Internal Medicine Hematology & Oncology; FAMILY PHYSICIAN Internal Medicine
DX: D45 Polycythemia vera (principal)
CPT/HCPCS: 36415; 85025

== ENCOUNTER 2024-11-28 07:29 | Outpatient (RCR) | payer MEDICARE, OTHER, SELFPAY | END 2024-11-28 23:59 | disposition home or self-care (01) | LOC: RPT 07:29 | PROVIDERS: ATTENDING PHYSICIAN Student in an Organized Health Care Education/Training Program; FAMILY PHYSICIAN Internal Medicine | DX: M54.51 Vertebrogenic low back pain (principal); M47.816 Spondylosis without myelopathy or radiculopathy, lumbar region; M54.2 Cervicalgia; M47.812 Spondylosis without myelopathy or radiculopathy, cervical region; Z73.6 Limitation of activities due to disability | CPT/HCPCS: 97110; 97112 ==

== ENCOUNTER 2024-12-02 13:48 | Emergency (ER) | payer MEDICARE, OTHER, SELFPAY ==
[2024-12-02 13:50] VITALS: BP 116/78
[2024-12-02 14:29] VITALS: BMI 26.6
--- NOTE | 2024-12-02 15:33 | ED.GENMED ---
History of Present Illness
General
Chief Complaint: Musculo-Skeletal Complaint
Source: patient
Exam Limitations: none
Time Seen by Provider: 12/02/24 14:42
Nursing documentation reviewed up to this point in time: agreed with
History of Present Illness
History of Present Illness:
Patient is a 6-year-old male who presents to the ER for evaluation of right hip pain. He has had intermittent right hip pain' for a while.' He attributed to arthritis pain. He has recently done physical therapy for his back and they try to avoid
his hip. He had physical therapy today and did fine however after he went home he was trying to help dress his disabled son and start with right hip pain and now can barely walk. He c/o of pain to his right lateral thight. When he has had hip
discomfort in the past he will at times take occasional Aleve however.
He denies any recent injury fever chills redness. Denies any swelling.
Past History
Past History
ED Past Medical History: HTN, Hypercholesterolemia, Other (DJD of the knees), Other (Kidney stone) and Other (Polycycthemia)
ED Past Surgical History: Orthopedic (Bilateral knees), Urological (Lithotripsy) and Other (Umbilical hernia)
Social History
Tobacco: Non-smoker
Alcohol: Occasional
Drug: None
Personal:
Living: with family
Employment: Employed
Family History
Family History: Other (Noncontributory)
Review of Systems
Review of Systems
Allergies reviewed?: Yes
All Other Systems: ROS reviewed and negative except as documented in HPI and ROS
Constitutional: Reports no symptoms; Denies fever, fatigue or chills
EENT: Reports no symptoms
Respiratory: Reports no symptoms
Cardiac: Reports no symptoms
ABD/GI: Reports no symptoms
Musculoskeletal: Reports other (right hip pain )
Skin: Reports no symptoms
Neurological: Reports no symptoms
Psychiatric: Reports no symptoms
Phy Exam
General Physical Exam
General Presentation: no apparent distress
General age: appears stated age
General Skin: warm and dry
General Habitus: normal
General Mental: alert
General Hydration: appears well hydrated
Neurological Exam
Neurological Exam: alert and oriented x3
Musculoskeletal Exam
Musculoskeletal Exam: other (normal inspection to right hip with no swelling or redness mildly tender to right lateral hip nontender to groin ; mild discomfort with hip abduction strong distal pulses normal distal sensation no distal swelling)
Skin Exam
Skin Exam: normal color and warm/dry
Psychiatric Exam
Psychiatric Exam: normal mood/affect
Course
Orders/Labs/Results
Orders:
Orders
12/02/24 14:28
Hip, Right 2-3 Views [CR Hip - RT w/wo Pel 2-3 Vw*] Urgent
Comment:
Reason For Exam: non traumatic pain
Include a pelvis x-ray?: Yes
12/02/24 15:45
Ketorolac [Toradol] 30 mg IM NOW STA
diazePAM [Valium Injection] 5 mg IM NOW STA
12/02/24 15:46
Acetaminophen [Tylenol] 1,000 mg PO NOW STA
Lidocaine [Lidocaine 4% Patch] 1 patch TOPICAL NOW STA
Apply Lidocaine patch(s) to:: right hip
Vital Signs
Initial and Last Documented VS:
Initial Vital Signs
Temp Pulse Resp BP Pulse Ox
98.9 F 95 17 116/78 99
12/02/24 13:50 12/02/24 13:50 12/02/24 13:50 12/02/24 13:50 12/02/24 13:50
Last Documented Vital Signs
Temp Pulse Resp BP Pulse Ox
98.9 F 63 18 138/81 97
12/02/24 13:50 12/02/24 17:42 12/02/24 17:42 12/02/24 17:42 12/02/24 17:42
MDM/Problems Addressed
Differential Diagnosis Includes:
Not limited to tendinitis arthritis less likely fracture
MDM/Problems Addressed:
Patient is document is a 69-year-old male who presents for right hip discomfort. He has had chronic hip discomfort and believes he has arthritis however today prior to arrival he had increased pain. He was fine during physical therapy(he is in
physical every for his back) but then came home and was assisting his son to get dressed and had discomfort. He denies any actual injury fall or trauma. On exam there is no obvious swelling or redness he strong pulses there is no obvious swelling.
Pain is worse with movement likely more muscular combination of arthritis as well. Patient was given 1 dose of Valium along with IM Toradol and Tylenol feeling much better. Will DC with Tylenol alternating with ibuprofen ice then heat outpatient
Ortho Greg follow-up he has seen Jus in the past and will give a prescription for Flexeril. I did review with patient however that Flexeril is sedating only to take as needed no driving or drinking alcohol with that and to return if any
worsening of symptoms
*Radiology
Radiology exam reviewed: radiology read reviewed
*Critical Care Note
Total Time (30-74mins, 75-104mins- exclusive of procedures): Not Applicable
ED Attending Note
-
Portions of this chart may have been created with voice recognition software.� Occasional wrong word or��sound alike� substitutions may have occurred due to the inherent limitations of voice recognition software.
Discharge Plan
Departure
Patient Disposition: Home (Routine Discharge)
Date of Disposition: 12/02/24
Time of Disposition: 17:25
Patient with high blood pressure during this ER visit?: No
Condition: Fair
Covid-19: Not Applicable
Discharge Problem:
Acute hip pain
Instructions: Hip Pain ED
Prescriptions:
New
cyclobenzaprine 10 mg tablet
10 mg PO TID PRN (Reason: muscle pain) Qty: 10 0RF
No Action
atorvastatin 40 MG tablet
40 mg PO QPM
ramipril 10 MG capsule
10 mg PO DAILY
aspirin 81 MG tablet,delayed release (DR/EC)
81 mg PO DAILY
multivitamin Tablet
1 tab PO HS
tamsulosin 0.4 mg Capsule
0.4 mg PO DAILY
metformin 1,000 mg Tablet
1,000 mg PO BID
acetaminophen [Tylenol] 325 mg Tablet
650 mg PO Q4HPRN PRN (Reason: mild pain)
Pepto-Bismol 262 mg Tablet
524 mg PO DAILYPRN PRN (Reason: gerd)
hydrochlorothiazide 25 mg Tablet
25 mg PO DAILY
Lactobac/Bifidobac [Visbiome]
2 cap PO DAILY Qty: 0 0RF
Referrals:
Haseeb Vincent MD [Family Provider] -
Sky Hill MD [Active] -
Activity Restrictions/Additional Instructions:
As discussed ice affected area for the next 24 hours followed by warm moist heat. You may alternate between Tylenol and ibuprofen
Ibuprofen 400 mg every 8 hours with food. Tylenol 650 mg every 6 hours.
A prescription for muscle laxer, Flexeril was sent to your pharmacy to take only as needed. This medication will cause drowsiness. No driving or drinking alcohol taking this medication. Follow-up with orthopedics. Please call to make an
appointment soon as possible return any worsening of symptoms.
Interventions
Interventions:
*Risk Screen - Suicide Last Done: 12/02/24 13:51
*General Assessment Last Done: 12/02/24 13:51
*Neglect/Abuse Screening Last Done: 12/02/24 13:51
*ED- Fall Risk Assessment Last Done: 12/02/24 14:29
*ED COVID-19 Vaccine History Last Done: 12/02/24 13:51
*Nursing Disposition Last Done: 12/02/24 17:42
ED-Musculoskeletal Assessment Last Done: 12/02/24 14:29
Discharge Date and Time
Discharge Date/Time: 12/02/24 17:42
Print Language: BURUNDIAN
[2024-12-02] MEDS: VALIUM INJECTION 5 MG IM (15:58)
[2024-12-02] MEDS: TYLENOL 1000 MG PO (15:58)
[2024-12-02] MEDS: TORADOL 30 MG IM (16:00)
[2024-12-02] MEDS: LIDOCAINE 4% PATCH 1 PATCH TOPICAL (16:02)
[2024-12-02 17:42] VITALS: BP 138/81
== END 2024-12-02 17:42 | disposition home or self-care (01) ==
LOC: EMR 13:48
PROVIDERS: EMERGENCY PHYSICIAN Emergency Medicine; FAMILY PHYSICIAN Internal Medicine
DX: M25.551 Pain in right hip (principal); I10 Essential (primary) hypertension
CPT/HCPCS: 99284; 96372 ×2; 73502

== ENCOUNTER 2024-12-30 06:25 | Outpatient (RCR) | payer MEDICARE, OTHER, SELFPAY | END 2024-12-30 23:59 | disposition home or self-care (01) | LOC: RPT 06:25 | PROVIDERS: ATTENDING PHYSICIAN Student in an Organized Health Care Education/Training Program; FAMILY PHYSICIAN Internal Medicine | DX: M54.51 Vertebrogenic low back pain (principal); M47.816 Spondylosis without myelopathy or radiculopathy, lumbar region; M54.2 Cervicalgia; M47.812 Spondylosis without myelopathy or radiculopathy, cervical region; Z73.6 Limitation of activities due to disability | CPT/HCPCS: 97010; 97110; 97112 ==

== ENCOUNTER → 2025-01-02 06:47 | Outpatient (REF) | payer MEDICARE, OTHER, SELFPAY ==
[2025-01-02 07:44] LABS: % Eosinophils 3.4 % (0-6); % Immature Granulocytes 0.7 % (0-0.5); % Lymphocytes 17.9 % (20.5-51.1); % Monocytes 13.4 % (1.7-9.3); % Neutrophils 63.6 % (42.2-75.2); Absolute Basophils 0.1 10^3/uL (0-0.2); Absolute Eosinophils 0.2 10^3/uL (0-0.7); Absolute Immature Granulocytes 0.1 10^3/uL (0-0.05); Absolute Lymphocytes 1.3 10^3/uL (1.2-3.4); Absolute Neutrophils 4.5 10^3/uL (1.4-6.5); Hematocrit 53.8 % (39.0-52.0); Hemoglobin 17.9 g/dL (13.0-18.0); Mean Corp Hgb Conc. 33.3 g/dL (33.0-37.0); Mean Corpuscular Hgb 27.7 pg (27.0-31.0); Mean Corpuscular Volume 83.3 fL (80.0-94.0); Mean Platelet Volume 9.6 fL (7.4-10.4); Nucleated Red Blood Cells % 0 % (-); Platelet Count 234 10^3/uL (130-400); Red Blood Cell Count 6.46 10^6/uL (4.70-6.10); Red Cell Dist. Width 14.8 % (11.5-14.5); White Blood Cell Count 7.1 10^3/uL (4.8-10.8)
[2025-01-02 10:21] LABS: Glycohemoglobin (HgbA1c) 6.7 % (4.0-5.6)
[2025-01-02 15:20] LABS: Iron 91 ug/dl (49-181)
[2025-01-02 15:29] LABS: Percent Saturation 30 % (20-50); Total Iron Binding Capacity 295 ug/dl (261-462)
== END ==
LOC: REG 06:47
PROVIDERS: ATTENDING PHYSICIAN Internal Medicine
DX: D50.8 Other iron deficiency anemias (principal); E11.9 Type 2 diabetes mellitus without complications; I10 Essential (primary) hypertension; R74.01 Elevation of levels of liver transaminase levels
CPT/HCPCS: 36415; 83036; 83540; 83550; 85025

== ENCOUNTER → 2025-01-21 07:02 | Outpatient (REF) | payer MEDICARE, OTHER, SELFPAY ==
[2025-01-21 08:09] LABS: HDL Cholesterol 40 mg/dl; LDL Cholesterol, Calculated 65 mg/dl; Total Cholesterol 122 mg/dl (50-199); Triglyceride 86 mg/dl (10-149); Very Low Density Lipoprotein 17 mg/dl (0-30)
[2025-01-21 08:15] LABS: Microalbumin, Random Urine 1.2 mg/dl (0.6-1.7); Microalbumin/creatinine Ratio 7.8 mg/g
== END ==
LOC: REG 07:02
PROVIDERS: ATTENDING PHYSICIAN Internal Medicine
DX: E11.9 Type 2 diabetes mellitus without complications (principal); E78.00 Pure hypercholesterolemia, unspecified
CPT/HCPCS: 36415; 80061; 82043; 82570

== ENCOUNTER → 2025-02-10 07:45 | Outpatient (REF) | payer MEDICARE, OTHER, SELFPAY ==
[2025-02-10 08:13] LABS: % Basophils 0.5 % (0-2); % Eosinophils 2.1 % (0-6); % Immature Granulocytes 0.2 % (0-0.5); % Lymphocytes 15.6 % (20.5-51.1); % Neutrophils 69.6 % (42.2-75.2); Absolute Eosinophils 0.2 10^3/uL (0-0.7); Absolute Lymphocytes 1.3 10^3/uL (1.2-3.4); Absolute Neutrophils 5.6 10^3/uL (1.4-6.5); Hematocrit 53.4 % (39.0-52.0); Hemoglobin 17.9 g/dL (13.0-18.0); Mean Corp Hgb Conc. 33.5 g/dL (33.0-37.0); Mean Corpuscular Hgb 28.9 pg (27.0-31.0); Mean Corpuscular Volume 86.1 fL (80.0-94.0); Platelet Count 216 10^3/uL (130-400)
== END ==
LOC: OIDL 07:45
PROVIDERS: Nurse Practitioner Adult Health; ATTENDING PHYSICIAN Internal Medicine Hematology & Oncology; FAMILY PHYSICIAN Internal Medicine
DX: D45 Polycythemia vera (principal)
CPT/HCPCS: 36415; 85025

== ENCOUNTER → 2025-02-28 07:27 | Outpatient (REF) | payer MEDICARE, OTHER, SELFPAY ==
[2025-02-28 08:39] LABS: % Basophils 0.7 % (0-2); % Eosinophils 2.7 % (0-6); % Immature Granulocytes 0.9 % (0-0.5); % Lymphocytes 16.2 % (20.5-51.1); % Monocytes 10.3 % (1.7-9.3); % Neutrophils 69.2 % (42.2-75.2); Absolute Basophils 0.1 10^3/uL (0-0.2); Absolute Eosinophils 0.2 10^3/uL (0-0.7); Absolute Immature Granulocytes 0.1 10^3/uL (0-0.05); Absolute Lymphocytes 1.3 10^3/uL (1.2-3.4); Absolute Monocytes 0.8 10^3/uL (0.1-0.6); Absolute Neutrophils 5.7 10^3/uL (1.4-6.5); Hematocrit 49.9 % (39.0-52.0); Hemoglobin 16.4 g/dL (13.0-18.0); Mean Corp Hgb Conc. 32.9 g/dL (33.0-37.0); Mean Corpuscular Hgb 28.8 pg (27.0-31.0); Mean Corpuscular Volume 87.5 fL (80.0-94.0); Mean Platelet Volume 9.6 fL (7.4-10.4); Nucleated Red Blood Cells % 0 % (-); Platelet Count 245 10^3/uL (130-400); Red Cell Dist. Width 14.3 % (11.5-14.5); White Blood Cell Count 8.2 10^3/uL (4.8-10.8)
== END ==
LOC: REG 07:27
PROVIDERS: ATTENDING PHYSICIAN Internal Medicine Hematology & Oncology; FAMILY PHYSICIAN Internal Medicine
DX: D45 Polycythemia vera (principal)
CPT/HCPCS: 36415; 85025

== ENCOUNTER → 2025-03-09 11:07 | Outpatient (REF) | payer MEDICARE, OTHER, SELFPAY ==
[2025-03-09 11:36] LABS: Hematocrit 46.6 % (39.0-52.0); Hemoglobin 15.9 g/dL (13.0-18.0); Mean Corp Hgb Conc. 34.1 g/dL (33.0-37.0); Mean Corpuscular Volume 85.7 fL (80.0-94.0); Platelet Count 276 10^3/uL (130-400); Red Cell Dist. Width 14.0 % (11.5-14.5)
== END ==
LOC: OIDL 11:07
PROVIDERS: ATTENDING PHYSICIAN Internal Medicine Hematology & Oncology; FAMILY PHYSICIAN Internal Medicine
DX: D45 Polycythemia vera (principal)
CPT/HCPCS: 36415; 85025

== ENCOUNTER → 2025-03-16 11:04 | Outpatient (REF) | payer MEDICARE, OTHER, SELFPAY ==
[2025-03-16 11:35] LABS: Hematocrit 43.9 % (39.0-52.0); Hemoglobin 14.6 g/dL (13.0-18.0); Mean Corp Hgb Conc. 33.3 g/dL (33.0-37.0); Mean Corpuscular Volume 86.2 fL (80.0-94.0); Platelet Count 259 10^3/uL (130-400); Red Cell Dist. Width 13.7 % (11.5-14.5)
== END ==
LOC: OIDL 11:04
PROVIDERS: ATTENDING PHYSICIAN Internal Medicine Hematology & Oncology; FAMILY PHYSICIAN Internal Medicine
DX: D45 Polycythemia vera (principal)
CPT/HCPCS: 36415; 85025

== ENCOUNTER → 2025-03-23 10:47 | Outpatient (REF) | payer MEDICARE, OTHER, SELFPAY ==
[2025-03-23 11:16] LABS: Hematocrit 41.5 % (39.0-52.0); Hemoglobin 13.9 g/dL (13.0-18.0); Mean Corp Hgb Conc. 33.5 g/dL (33.0-37.0); Mean Corpuscular Volume 86.3 fL (80.0-94.0); Platelet Count 264 10^3/uL (130-400); Red Cell Dist. Width 13.3 % (11.5-14.5)
== END ==
LOC: OIDL 10:47
PROVIDERS: ATTENDING PHYSICIAN Internal Medicine Hematology & Oncology; FAMILY PHYSICIAN Internal Medicine
DX: D45 Polycythemia vera (principal)
CPT/HCPCS: 36415; 85025

== ENCOUNTER → 2025-03-30 10:43 | Outpatient (REF) | payer MEDICARE, OTHER, SELFPAY ==
[2025-03-30 11:12] LABS: Hematocrit 42.9 % (39.0-52.0); Hemoglobin 14.1 g/dL (13.0-18.0); Mean Corp Hgb Conc. 32.9 g/dL (33.0-37.0); Mean Corpuscular Volume 86.0 fL (80.0-94.0); Platelet Count 280 10^3/uL (130-400); Red Cell Dist. Width 13.0 % (11.5-14.5)
== END ==
LOC: OIDL 10:43
PROVIDERS: ATTENDING PHYSICIAN Internal Medicine Hematology & Oncology; FAMILY PHYSICIAN Internal Medicine
DX: D45 Polycythemia vera (principal)
CPT/HCPCS: 36415; 85025

== ENCOUNTER → 2025-04-06 10:48 | Outpatient (REF) | payer MEDICARE, OTHER, SELFPAY ==
[2025-04-06 11:19] LABS: Hematocrit 45.1 % (39.0-52.0); Hemoglobin 14.7 g/dL (13.0-18.0); Mean Corp Hgb Conc. 32.6 g/dL (33.0-37.0); Mean Corpuscular Volume 84.6 fL (80.0-94.0); Platelet Count 321 10^3/uL (130-400); Red Cell Dist. Width 13.0 % (11.5-14.5)
== END ==
LOC: OIDL 10:48
PROVIDERS: ATTENDING PHYSICIAN Internal Medicine Hematology & Oncology; FAMILY PHYSICIAN Internal Medicine
DX: D45 Polycythemia vera (principal)
CPT/HCPCS: 36415; 85025

== ENCOUNTER → 2025-04-13 10:48 | Outpatient (REF) | payer MEDICARE, OTHER, SELFPAY ==
[2025-04-13 11:32] LABS: Hematocrit 46.0 % (39.0-52.0); Hemoglobin 15.0 g/dL (13.0-18.0); Mean Corp Hgb Conc. 32.6 g/dL (33.0-37.0); Mean Corpuscular Volume 83.0 fL (80.0-94.0); Platelet Count 317 10^3/uL (130-400); Red Cell Dist. Width 12.9 % (11.5-14.5)
== END ==
LOC: OIDL 10:48
PROVIDERS: ATTENDING PHYSICIAN Internal Medicine Hematology & Oncology; FAMILY PHYSICIAN Internal Medicine
DX: D45 Polycythemia vera (principal)
CPT/HCPCS: 36415; 85025

== ENCOUNTER → 2025-05-01 06:56 | Outpatient (REF) | payer MEDICARE, OTHER, SELFPAY ==
[2025-05-01 07:37] LABS: Hematocrit 42.8 % (39.0-52.0); Hemoglobin 13.7 g/dL (13.0-18.0); Mean Corp Hgb Conc. 32.0 g/dL (33.0-37.0); Mean Corpuscular Volume 80.5 fL (80.0-94.0); Nucleated Red Blood Cells % 0 % (-); Platelet Count 288 10^3/uL (130-400); Red Cell Dist. Width 13.6 % (11.5-14.5)
== END ==
LOC: REG 06:56
PROVIDERS: ATTENDING PHYSICIAN Internal Medicine Hematology & Oncology; FAMILY PHYSICIAN Internal Medicine
DX: D45 Polycythemia vera (principal)
CPT/HCPCS: 36415; 85025

== ENCOUNTER → 2025-05-15 06:47 | Outpatient (REF) | payer MEDICARE, OTHER, SELFPAY ==
[2025-05-15 07:41] LABS: Hematocrit 45.6 % (39.0-52.0); Hemoglobin 14.1 g/dL (13.0-18.0); Mean Corp Hgb Conc. 30.9 g/dL (33.0-37.0); Mean Corpuscular Volume 79.2 fL (80.0-94.0); Nucleated Red Blood Cells % 0 % (-); Platelet Count 346 10^3/uL (130-400); Red Cell Dist. Width 14.6 % (11.5-14.5)
== END ==
LOC: REG 06:47
PROVIDERS: ATTENDING PHYSICIAN Internal Medicine Hematology & Oncology; FAMILY PHYSICIAN Internal Medicine
DX: D45 Polycythemia vera (principal)
CPT/HCPCS: 36415; 85025

== ENCOUNTER → 2025-05-29 09:48 | Outpatient (REF) | payer MEDICARE, OTHER, SELFPAY ==
[2025-05-29 10:20] LABS: Hematocrit 40.6 % (39.0-52.0); Hemoglobin 12.9 g/dL (13.0-18.0); Mean Corp Hgb Conc. 31.8 g/dL (33.0-37.0); Mean Corpuscular Volume 75.7 fL (80.0-94.0); Nucleated Red Blood Cells % 0 % (-); Platelet Count 293 10^3/uL (130-400); Red Cell Dist. Width 15.5 % (11.5-14.5)
== END ==
LOC: REG 09:48
PROVIDERS: ATTENDING PHYSICIAN Internal Medicine Hematology & Oncology; FAMILY PHYSICIAN Internal Medicine
DX: D45 Polycythemia vera (principal)
CPT/HCPCS: 36415; 85025

== ENCOUNTER 2025-06-18 13:12 | Emergency (ER) | payer MEDICARE, OTHER, SELFPAY ==
[2025-06-18 13:17] VITALS: BP 129/70
--- NOTE | 2025-06-18 13:34 | ED.GENMED ---
History of Present Illness
General
Chief Complaint: Flank Pain
Source: patient
Time Seen by Provider: 06/18/25 13:29
History of Present Illness
History of Present Illness:
70-year-old male with past medical history of hypertension, hyperlipidemia, [id number] diabetes, previous kidney stones presents to the emergency department for sudden onset of left flank pain at 10 AM this morning described to be sharp,
radiating towards the left lower abdomen, 8 out of 10 accompanied with nausea and feeling exactly similar to multiple previous kidney stones in the past. Patient took a dose of Flomax prior to arrival but did not take any other medications for
pain. He follows with urology, Dr. Ybarra. He notes that urine was darker in color, possibly bloody. Denies any fevers, chills, rigors. No other concerns.
Past History
Past History
ED Past Medical History: HTN, Hypercholesterolemia, NIDDM, Other (DJD of the knees), Other (Kidney stone) and Other (Polycycthemia)
ED Past Surgical History: Orthopedic (Bilateral knees), Tonsilectomy, Urological (Lithotripsy) and Other (Umbilical hernia)
Social History
Tobacco: Non-smoker
Alcohol: Occasional
Drug: None
Personal:
Living: with family
Employment: Employed
Family History
Family History: Other (Noncontributory)
Review of Systems
Review of Systems
All Other Systems: ROS reviewed and negative except as documented in HPI and ROS
Phy Exam
Physical Exam
Physical Exam:
GENERAL: Alert , in no apparent distress but appears mildly uncomfortable
EYE: clear conjunctiva b/l
HEAD: NCAT
ENT: mmm.
CARDIAC: Regular rate and rhythm .
LUNGS: Clear breath sounds bilaterally, no acute respiratory distress, no wheezes/rales/rhonchi
ABDOMEN: Soft, without focal tenderness, no r/g, no cvat
NEUROLOGICAL: Alert and oriented
SKIN: Warm and dry, skin intact.
MUSCULOSKELETAL: well perfused.
PSYCH: Normal and appropriate interaction.
Scores
Heart Failure Risk
Heart Failure Risk Score: Not Applicable
Heart Score for Chest Pain Patients
STEMI patient?: Not applicable
Withdrawal Assessment of Alcohol
Withdrawal Assessment Completed?: Not applicable
Course
Orders/Labs/Results
Orders:
Orders
06/18/25 13:23
Urinalysis Reflex To Culture Urgent
Date Specimen was Collected: 06/18/25
Time Specimen was Collected: 13:17
Urine Microscopic Reflex Cult Urgent
Urine Culture Urgent
LAVERNE Source: U
Specimen Description:
Date Specimen was Collected: 06/18/25
Time Specimen was Collected: 13:17
06/18/25 13:27
Complete Blood Count/With Diff Urgent
Comprehensive Metabolic Panel Urgent
06/18/25 13:33
CT Abd/pel Without Iv Or Oral Urgent
Comment:
Reason For Exam: left flank pain, hx stones
Ketorolac [Toradol] 30 mg IV NOW STA
Ondansetron Injectable [Zofran] 4 mg IV NOW STA
06/18/25 13:38
0.9% Sodium Chloride 1000 ml [Nss] 1,000 ml IV BOLUS
Abnormal Lab Results
06/18/25 06/18/25
13:23 13:27
MCV 76.6 L fL
(80.0-94.0)
MCH 23.2 L pg
(27.0-31.0)
MCHC 30.4 L g/dL
(33.0-37.0)
RDW 16.7 H %
(11.5-14.5)
Abs Immat Gran (auto) 0.1 H 10^3/uL
(0-0.05)
Absolute Neuts (auto) 7.7 H 10^3/uL
(1.4-6.5)
Absolute Monos (auto) 0.9 H 10^3/uL
(0.1-0.6)
Immature Gran % 0.6 H %
(0-0.5)
Lymphocytes % 13.9 L %
(20.5-51.1)
BUN 27 H mg/dl
(9-20)
Glucose 160 H mg/dl
(70-99)
Calcium 10.3 H mg/dl
(8.4-10.2)
Ur Occult Blood Reflex 4+ A
(Negative)
Leukocyte Esterase Rfl 1+ A
(Negative)
Urine RBC 50-60 A /HPF
(0-2)
Urine Bacteria (Reflex) Few A
(Negative)
Urine Albumin (Reflex) 2+ A
(Neg - Trace)
06/18/25 13:27
06/18/25 13:27
Vital Signs
Initial and Last Documented VS:
Initial Vital Signs
Temp Pulse Resp BP Pulse Ox
98.9 F 84 18 129/70 98
06/18/25 13:17 06/18/25 13:17 06/18/25 13:17 06/18/25 13:17 06/18/25 13:17
Last Documented Vital Signs
Temp Pulse Resp BP Pulse Ox
98.9 F 84 18 129/70 98
06/18/25 13:17 06/18/25 13:17 06/18/25 13:17 06/18/25 13:17 06/18/25 13:38
MDM/Problems Addressed
Differential Diagnosis Includes:
Renal/Ureteral colic
UTI
Pyelo
Diverticulitis
Muscular back pain
Dissection
MDM/Problems Addressed:
70-year-old male presenting to the emergency department for evaluation of sudden onset of left flank pain accompanied with dark urine, possibly bloody. Patient with history of similar diagnosed with kidney stones multiple times in the past, had
previously needed a ureteral stent last year. Took a dose of Flomax prior to arrival, still with pain and nausea. Will treat with Toradol and Zofran. Labs and CT ordered. Disposition pending.
*Radiology
Radiology exam reviewed: radiology read reviewed
*Pulse Oximetry
SaO2: 98
Oxygen Mode of Delivery: Room air
Patient hypoxic: no
*Critical Care Note
Total Time (30-74mins, 75-104mins- exclusive of procedures): Not Applicable
Patient Management
Escalation/DeEscalation of care consider admission/obs:
Patient with significant relief of symptoms following medications. His CT scan did show bilateral nephrolithiasis and bladder stones but no ureteral stone or obstructive process noted. At this time patient does feel comfortable being discharged
home, encouraged patient to follow-up with urology. Follow-up medications for Flomax, pain control and Zofran provided. Patient aware of return precautions. Stable for discharge home
ED Attending Note
-
Portions of this chart may have been created with voice recognition software.� Occasional wrong word or��sound alike� substitutions may have occurred due to the inherent limitations of voice recognition software.
Discharge Plan
Departure
Patient Disposition: Home (Routine Discharge)
Date of Disposition: 06/18/25
Time of Disposition: 15:18
Patient with high blood pressure during this ER visit?: No
Discharge Problem:
Renal colic on left side, Recurrent kidney stones, Bladder stones
Instructions: Kidney Stones (DC)
Prescriptions:
New
tamsulosin [Flomax] 0.4 mg capsule
0.4 mg PO DAILY Qty: 20 0RF
oxycodone-acetaminophen [Percocet] 5-325 mg tablet
1 tab PO Q6HPRN PRN (Reason: pain) Qty: 6 0RF
ondansetron 4 mg tablet,disintegrating
4 mg PO TIDPRN PRN (Reason: nausea/vomiting) Qty: 10 0RF
naproxen 500 mg tablet
500 mg PO BID PRN (Reason: Pain) Qty: 15 0RF
Rx Instructions:
Please take with food
No Action
atorvastatin 40 MG tablet
40 mg PO QPM
ramipril 10 MG capsule
10 mg PO DAILY
aspirin 81 MG tablet,delayed release (DR/EC)
81 mg PO DAILY
multivitamin Tablet
1 tab PO HS
tamsulosin 0.4 mg Capsule
0.4 mg PO DAILY
metformin 1,000 mg Tablet
1,000 mg PO BID
acetaminophen [Tylenol] 325 mg Tablet
650 mg PO Q4HPRN PRN (Reason: mild pain)
Pepto-Bismol 262 mg Tablet
524 mg PO DAILYPRN PRN (Reason: gerd)
hydrochlorothiazide 25 mg Tablet
25 mg PO DAILY
Lactobac/Bifidobac [Visbiome]
2 cap PO DAILY Qty: 0 0RF
cyclobenzaprine 10 mg tablet
10 mg PO TID PRN (Reason: muscle pain) Qty: 10 0RF
Referrals:
Leopoldo Ybarra MD [Active, Urology]
UNKNOWN - PT DOES,NOT KNOW [Family Provider]
Interventions
Interventions:
*Risk Screen - Suicide Last Done: 06/18/25 13:17
*General Assessment Last Done: 06/18/25 13:17
*Neglect/Abuse Screening Last Done: 06/18/25 13:17
*ED- Fall Risk Assessment Last Done: 06/18/25 13:17
*ED COVID-19 Vaccine History Last Done: 06/18/25 13:17
*ED Influenza Vaccine History Last Done: 06/18/25 13:17
*Nursing Disposition Last Done: 06/18/25 15:26
[facility]-Lbbjap-Bsgonumlgc Assessment Last Done: 06/18/25 13:35
ED-Male Genitourinary Assessment Last Done: 06/18/25 14:41
Discharge Date and Time
Discharge Date/Time: 06/18/25 15:31
Print Language: ROMANIAN
[2025-06-18 13:35] LABS: Urine Character Clear (Clear)
[2025-06-18 13:43] LABS: Urine Red Blood Cell 50-60 /HPF (0-2)
[2025-06-18] MEDS: ZOFRAN 4 MG IV (13:43)
[2025-06-18] MEDS: TORADOL 30 MG IV (13:43)
[2025-06-18] MEDS: NSS 1000 IV (13:43)
[2025-06-18 13:48] LABS: Hematocrit 44.8 % (39.0-52.0); Hemoglobin 13.6 g/dL (13.0-18.0); Mean Corp Hgb Conc. 30.4 g/dL (33.0-37.0); Mean Corpuscular Volume 76.6 fL (80.0-94.0); Nucleated Red Blood Cells % 0 % (-); Platelet Count 361 10^3/uL (130-400); Red Cell Dist. Width 16.7 % (11.5-14.5)
[2025-06-18 13:55] LABS: ALT (SGPT) 25 U/L (0-50); AST (SGOT) 23 U/L (17-59); Albumin 4.8 g/dl (3.5-5.0); Alkaline Phosphatase 89 U/L (38-126); Blood Urea Nitrogen 27 mg/dl (9-20); Calcium 10.3 mg/dl (8.4-10.2); Carbon Dioxide 26 mmol/L (22-30); Chloride 102 mmol/L (98-107); Glucose 160 mg/dl (70-99); Potassium 4.6 mmol/L (3.5-5.1); Sodium 139 mmol/L (135-145); Total Protein 6.9 g/dl (6.3-8.2); eGFR > 60.00
== END 2025-06-18 15:31 | disposition home or self-care (01) ==
LOC: EMR 13:12
PROVIDERS: Emergency Medicine; EMERGENCY PHYSICIAN Student in an Organized Health Care Education/Training Program
DX: N20.0 Calculus of kidney (principal); N21.0 Calculus in bladder; E11.9 Type 2 diabetes mellitus without complications; I10 Essential (primary) hypertension; E78.00 Pure hypercholesterolemia, unspecified; D75.1 Secondary polycythemia; M17.0 Bilateral primary osteoarthritis of knee; Z87.442 Personal history of urinary calculi; Z79.82 Long term (current) use of aspirin; Z79.84 Long term (current) use of oral hypoglycemic drugs
CPT/HCPCS: 99284; 96374; 96375; 96361; 74176; 80053; 81003; 81015; 85025; 87086

== ENCOUNTER → 2025-08-24 09:19 | Outpatient (REF) | payer MEDICARE, OTHER, SELFPAY ==
[2025-08-24 10:57] LABS: Hematocrit 42.5 % (39.0-52.0); Hemoglobin 13.0 g/dL (13.0-18.0); Mean Corp Hgb Conc. 30.6 g/dL (33.0-37.0); Mean Corpuscular Volume 70.7 fL (80.0-94.0); Nucleated Red Blood Cells % 0 % (-); Platelet Count 312 10^3/uL (130-400); Red Cell Dist. Width 20.1 % (11.5-14.5)
== END ==
LOC: REG 09:19
PROVIDERS: ATTENDING PHYSICIAN Internal Medicine Hematology & Oncology; FAMILY PHYSICIAN Internal Medicine
DX: R74.01 Elevation of levels of liver transaminase levels (principal)
CPT/HCPCS: 36415; 85025